=== PATIENT | female | born 1955 | race Caucasian/White ===

== ENCOUNTER 2019-11-13 11:15 | Observation (INO) | payer OTHER, SELFPAY ==
[2019-11-13 11:21] VITALS: BP 126/77; PULSE 75; RESP 18; TEMP 36.6; O2SAT 99; BMI 19.0
--- NOTE | 2019-11-13 11:32 | ED.ABDPAIN ---
HPI - Abdominal Pain <EFRAIN Anderson - Last Filed: 11/13/19 13:58> General Chief Complaint: Abdominal Pain Stated Complaint: Severe stomach pain Time Seen by Provider: 11/13/19 11:16 Source: patient Mode of arrival: Ambulatory Limitations: no limitations History of Present Illness HPI narrative: 64yo male presents to the ED complaining of right lower quadrant stomach pain starting yesterday morning. She states the pain is a dull aching pain that is worse with walking, palpation, and certain movements such as bending her knee to her chest. She states she then developed nausea and vomiting that evening, she vomited 3-4 times. She has not eaten since then. She woke up this morning stating the pain has continued, she has not vomited today. She denies any abdominal surgeries in the past, significant past medical history, chest pain, shortness of breath, diarrhea, dizziness, syncope, dysuria, vaginal discharge, or any other concerns. She states ?I feel like had a fever ?. Patient states she last ate at 0900 yesterday, she reports she had a smoothie. She last had a few sips of water at 0900 today. Related Data Home Medications Medication Instructions Recorded Confirmed clonazepam [Klonopin] 0.25 mg PO DAILY PRN 11/13/19 11/13/19 Allergies Allergy/AdvReac Type Severity Reaction Status Date / Time No Known Drug Allergies Allergy Verified 11/13/19 11:21 Review of Systems <EFRAIN Anderson - Last Filed: 11/13/19 13:58> Review of Systems Narrative: REVIEW OF SYSTEMS: GENERAL: Patient reports she has felt like she has had a fever. HENT: No head trauma. EYES: No vision changes. CARDIOVASCULAR: No chest pain. RESPIRATORY: No shortness of breath or cough. GASTROINTESTINAL: Complains of right lower quadrant abdominal pain, see HPI GENITOURINARY: No flank pain, dysuria, or vaginal discharge. MUSCULOSKELETAL: Denies trauma. INTEGUMENTARY: Denies rash. NEURO: Denies headaches. PSYCH: No behavior or mood changes. Patient History <EFRAIN Anderson - Last Filed: 11/13/19 13:58> Medical History (Updated 11/13/19 @ 14:59 by Ofe Reeves RN) Fibromyalgia (Acute) No significant medical problems (Acute) Social History household members: none Smoking Status: Never smoker alcohol intake: never Smoking Status: Never smoker alcohol intake frequency: a few times a week Alcohol type: wine Substance Use Type: does not use Exam <EFRAIN Anderson - Last Filed: 11/13/19 13:58> Initial Vital Signs Initial Vital Signs: Vital Signs Temperature 98 F 11/13/19 11:21 Pulse Rate 75 11/13/19 11:21 Respiratory Rate 18 11/13/19 11:21 Blood Pressure 126/77 11/13/19 11:21 Pulse Oximetry 99 11/13/19 11:21 PHYSICAL EXAMINATION: GENERAL: Well groomed, alert, and cooperative. Answers questions promptly and appropriately. Vital signs noted. HENT: Normocephalic, atraumatic. Hearing intact. Oral mucosa is pink and moist. EYES: Conjunctiva pink, sclera white, no periorbital swelling. CARDIOVASCULAR: S1 and S2 sounds normal. Regular rate and rhythm, no murmurs, clicks, or bruits. No pedal edema. RESPIRATORY: Normal respiratory rate, trachea midline, airway patent. No stridor, nasal flaring or accessory muscle use. Lungs are clear in all car[place] without wheeze, rhonchi, or crackles. GASTROINTESTINAL: Bowel sounds normoactive. Diffuse tenderness, significant right lower quadrant tenderness, McBurney point tenderness. Positive rebound tenderness. Pain with movement particularly flexion of right leg, sitting forward, and walking around the room.. No significant pain with heel tap. GENITALURINARY: No flank tenderness. MUSCULOSKELETAL: Normal gait and coordination. Equal tone and mass bilaterally. EXTREMITIES: CMS intact, no pedal edema. SKIN: Warm, dry, soft, appropriate color for ethnicity. No lesions, rashes, or wounds to visualized areas. NEURO: Alert and Oriented X 3. Good coordination. No ataxia, or sensory deficits, or cognitive issues. PSYCH: Appropriate affect and mood. <Kayden Kingsley MD - Last Filed: 11/13/19 18:58> Initial Vital Signs Initial Vital Signs: Vital Signs Temperature 98 F 11/13/19 11:21 Pulse Rate 75 11/13/19 11:21 Respiratory Rate 18 11/13/19 11:21 Blood Pressure 126/77 11/13/19 11:21 Pulse Oximetry 99 11/13/19 11:21 Course <EFRAIN Anderson - Last Filed: 11/13/19 13:58> Course Course Narrative: Patient was given IV fluids, zofran, and toradol to managed symptoms. 1235: Patient re-evaluated, reports pain has significantly decreased. States pain is a 4/10, denies need of any further pain medication at this time. Zosyn started in the ED per nursing. Patient informed that she will have a coronavirus test incase surgery is needed. Orders Ordered: ED Orders 11/13/19 11:29 Complete Blood Count AUTO DIFF Stat Comprehensive Metabolic Panel Stat Lactate (Lactic Acid) Stat Lipase Stat Procalcitonin Stat 11/13/19 11:57 CT abdomen pelvis w con Stat Acetaminophen (Tylenol) 650 mg PO Q6HR PRN PRN Reason: Fever/Mild Pain (1-3) Last Admin: 11/13/19 14:14 Dose: 650 mg Documented by: NIKKY Clonazepam (Klonopin) 0.25 mg PO BID PRN PRN Reason: Anxiety Lactated Ringer's (Lactated Ringers) 1,000 mls @ 100 mls/hr IV CONT ELI Last Admin: 11/13/19 14:16 Dose: 100 mls/hr Documented by: NIKKY Piperacillin/Tazobactam/Dextrose (Zosyn) 3.375 gm in 50 mls @ 100 mls/hr IV Q6H ELI Last Infusion: 11/13/19 18:41 Dose: 0 mls/hr Documented by: Admin: 11/13/19 16:31 Dose: 100 mls/hr Documented by: UGO Ketorolac Tromethamine (Toradol) 15 mg IV Q6H PRN PRN Reason: Pain, Severe (7-10) Stop: 11/18/19 16:38 Morphine Sulfate (Morphine) 2 mg IV Q4HR PRN PRN Reason: Pain, Moderate (4-6) Ondansetron HCl (Zofran) 4 mg IV Q4HR PRN PRN Reason: Nausea And Vomiting Oxycodone HCl (Percolone) 5 mg PO Q4HR PRN PRN Reason: Pain, Moderate (4-6) Last Admin: 11/13/19 16:31 Dose: 5 mg Documented by: APARKER Discontinued Medications Sodium Chloride (Normal Saline 0.9%) 1,000 mls @ 1,000 mls/hr IV BOLUS ONE Stop: 11/13/19 12:28 Last Infusion: 11/13/19 13:51 Dose: 0 mls/hr Documented by: Admin: 11/13/19 11:38 Dose: 1,000 mls/hr Documented by: WES Piperacillin/Tazobactam/Dextrose (Zosyn) 3.375 gm in 50 mls @ 100 mls/hr IV NOW ONE Stop: 11/13/19 12:55 Last Infusion: 11/13/19 13:09 Dose: 0 mls/hr Documented by: Admin: 11/13/19 12:34 Dose: 100 mls/hr Documented by: WES Ketorolac Tromethamine (Toradol) 30 mg IV NOW ONE Stop: 11/13/19 11:30 Last Admin: 11/13/19 11:38 Dose: 30 mg Documented by: WES Ondansetron HCl (Zofran) 4 mg IV NOW ONE Stop: 11/13/19 11:30 Last Admin: 11/13/19 11:39 Dose: 4 mg Documented by: WES Reevaluation(s) Reevaluation #1: I spoke with the radiologist at 1218, discussed that patient does have appendicitis. 1220, I spoke with the general surgeon, Dr. Ocasio about patient's CT report. Patient was started on Zosyn as discussed. Coronavirus stat test was ordered for rule out before possible surgical procedure. Dr. Ocasio saw patient in the ED. Vital Signs Vital signs: Vital Signs - 8 hr 11/13/19 11:21 11/13/19 11:52 Temperature 98 F Pulse Rate 75 76 Respiratory Rate 18 16 Blood Pressure 126/77 Blood Pressure [Right Arm] 126/77 Pulse Oximetry 99 99 <Kayden Kingsley MD - Last Filed: 11/13/19 18:58> Orders Ordered: ED Orders 11/13/19 11:29 Complete Blood Count AUTO DIFF Stat Comprehensive Metabolic Panel Stat Lactate (Lactic Acid) Stat Lipase Stat Procalcitonin Stat 11/13/19 11:57 CT abdomen pelvis w con Stat Acetaminophen (Tylenol) 650 mg PO Q6HR PRN PRN Reason: Fever/Mild Pain (1-3) Last Admin: 11/13/19 14:14 Dose: 650 mg Documented by: NIKKY Clonazepam (Klonopin) 0.25 mg PO BID PRN PRN Reason: Anxiety Lactated Ringer's (Lactated Ringers) 1,000 mls @ 100 mls/hr IV CONT ELI Last Admin: 11/13/19 14:16 Dose: 100 mls/hr Documented by: NIKKY Piperacillin/Tazobactam/Dextrose (Zosyn) 3.375 gm in 50 mls @ 100 mls/hr IV Q6H [facility] Last Infusion: 11/13/19 18:41 Dose: 0 mls/hr Documented by: Admin: 11/13/19 16:31 Dose: 100 mls/hr Documented by: UGO Ketorolac Tromethamine (Toradol) 15 mg IV Q6H PRN PRN Reason: Pain, Severe (7-10) Stop: 11/18/19 16:38 Morphine Sulfate (Morphine) 2 mg IV Q4HR PRN PRN Reason: Pain, Moderate (4-6) Ondansetron HCl (Zofran) 4 mg IV Q4HR PRN PRN Reason: Nausea And Vomiting Oxycodone HCl (Percolone) 5 mg PO Q4HR PRN PRN Reason: Pain, Moderate (4-6) Last Admin: 11/13/19 16:31 Dose: 5 mg Documented by: UGO Discontinued Medications Sodium Chloride (Normal Saline 0.9%) 1,000 mls @ 1,000 mls/hr IV BOLUS ONE Stop: 11/13/19 12:28 Last Infusion: 11/13/19 13:51 Dose: 0 mls/hr Documented by: Admin: 11/13/19 11:38 Dose: 1,000 mls/hr Documented by: WES Piperacillin/Tazobactam/Dextrose (Zosyn) 3.375 gm in 50 mls @ 100 mls/hr IV NOW ONE Stop: 11/13/19 12:55 Last Infusion: 11/13/19 13:09 Dose: 0 mls/hr Documented by: Admin: 11/13/19 12:34 Dose: 100 mls/hr Documented by: WES Ketorolac Tromethamine (Toradol) 30 mg IV NOW ONE Stop: 11/13/19 11:30 Last Admin: 11/13/19 11:38 Dose: 30 mg Documented by: WES Ondansetron HCl (Zofran) 4 mg IV NOW ONE Stop: 11/13/19 11:30 Last Admin: 11/13/19 11:39 Dose: 4 mg Documented by: WES Vital Signs Vital signs: Vital Signs - 8 hr 11/13/19 11:21 11/13/19 11:52 Temperature 98 F Pulse Rate 75 76 Respiratory Rate 18 16 Blood Pressure 126/77 Blood Pressure [Right Arm] 126/77 Pulse Oximetry 99 99 MDM - Abdominal Pain <EFRAIN Anderson - Last Filed: 11/13/19 13:58> Medical Records Attestation: I reviewed the patient's medical records. Lab Data Attestation: I reviewed the patient's lab results. Result diagrams: 11/13/19 11:29 11/13/19 11:29 Labs: Lab Results 11/13/19 11/13/19 11/13/19 Range/Units 11:29 11:29 11:29 WBC 4.1 L (4.5-11.0) X10^3/uL RBC 4.65 (4.0-5.2) X10^6/uL Hgb 14.9 (12.0-16.0) g/dL Hct 43.1 (36-46) % MCV 92.8 (80-100) fL MCH 32.1 (26-34) PG MCHC 34.6 (30-36) % RDW 12.8 (11.6-14.8) % Plt Count 197 (150-400) X10^3/uL Neut % (Auto) 76.1 H (50-75) % Lymph % (Auto) 16.3 L (25-40) % [place] % (Auto) 7.4 (3-14) % Eos % (Auto) 0.0 L (2-4) % Baso % (Auto) 0.2 (0-2) % Neut # (Auto) 3100 (6440-8784) /uL Lymph # (Auto) 700 L (0418-6576) /uL [place] # (Auto) 300 (0-900) /uL Eos # (Auto) 0 (0-450) /uL Baso # (Auto) 0 (0-100) /uL Sodium 130 L (137-145) mmol/L Potassium 4.1 (3.4-5.1) mmol/L Chloride 95 L (98-107) mmol/L Carbon Dioxide 25 (22-32) mmol/L BUN 11 (7-17) mg/dL Creatinine 0.60 (0.52-1.04) mg/dL Estimated GFR > 60.0 (>60) mL/min BUN/Creatinine Ratio 18.3 (6-22) Glucose 144 H (80-110) mg/dL Lactate 1.5 (0.7-2.1) mmol/L Calcium 9.1 (8.4-10.2) mg/dL Total Bilirubin 1.0 (0.2-1.3) mg/dL AST 29 (14-36) IU/L ALT 17 (<35) IU/L Alkaline Phosphatase 50 (38-126) U/L Total Protein 7.5 (6.3-8.2) g/dL Albumin 4.5 (3.5-5.0) g/dL Globulin 3.0 (1.7-4.1) g/dL Albumin/Globulin Ratio 1.5 (1.0-2.8) Lipase 26 (23-300) U/L Procalcitonin (<0.5) ng/mL 11/13/19 Range/Units 11:29 WBC (4.5-11.0) X10^3/uL RBC (4.0-5.2) X10^6/uL Hgb (12.0-16.0) g/dL Hct (36-46) % MCV (80-100) fL MCH (26-34) PG MCHC (30-36) % RDW (11.6-14.8) % Plt Count (150-400) X10^3/uL Neut % (Auto) (50-75) % Lymph % (Auto) (25-40) % [place] % (Auto) (3-14) % Eos % (Auto) (2-4) % Baso % (Auto) (0-2) % Neut # (Auto) (9292-9345) /uL Lymph # (Auto) (9027-9341) /uL [place] # (Auto) (0-900) /uL Eos # (Auto) (0-450) /uL Baso # (Auto) (0-100) /uL Sodium (137-145) mmol/L Potassium (3.4-5.1) mmol/L Chloride (98-107) mmol/L Carbon Dioxide (22-32) mmol/L BUN (7-17) mg/dL Creatinine (0.52-1.04) mg/dL Estimated GFR (>60) mL/min BUN/Creatinine Ratio (6-22) Glucose (80-110) mg/dL Lactate (0.7-2.1) mmol/L Calcium (8.4-10.2) mg/dL Total Bilirubin (0.2-1.3) mg/dL AST (14-36) IU/L ALT (<35) IU/L Alkaline Phosphatase (38-126) U/L Total Protein (6.3-8.2) g/dL Albumin (3.5-5.0) g/dL Globulin (1.7-4.1) g/dL Albumin/Globulin Ratio (1.0-2.8) Lipase (23-300) U/L Procalcitonin 0.07 (<0.5) ng/mL Imaging Data CT scan - abdomen/pelvis: Radiologist's Impression: [place] [address] CT Scan Report Signed Patient: Ena Benitez [facility]#: [id number] : 6Acct:[id number] Age/Sex: 64 / FDate of Service: 11/13/19 Loc: ED Accession Number: [id number] Procedure: CT abdomen pelvis w con Ordering Provider: Albania Tate PROCEDURE: CT ABDOMEN PELVIS W CON INDICATIONS: RIGHT FLANK PAIN TECHNIQUE: After the administration of intravenous contrast, 5 mm thick sections acquired from the diaphragm to the symphysis. 5 mm coronal and sagittal reformats were acquired. For radiation dose reduction, the following was used: automated exposure control, adjustment of mA and/or kV according to patient size. COMPARISON: None. FINDINGS: Image quality: Excellent. ABDOMEN: Lung bases: Lung bases are clear. Heart size is normal. Solid organs: Liver is normal in size and enhancement. Gallbladder wall does not appear thickened. Biliary system is non dilated. Pancreas enhances normally. Spleen is normal in size and enhancement. No adrenal nodules. Kidneys demonstrate normal size and enhancement, without hydronephrosis. At the superior pole of the left kidney, there is a water density 1.3 cm simple cyst seen. Peritoneum and bowel: There is an abnormal appendix seen, with a caliber 1.5 cm. This appendix is seen projecting superiorly within a retrocecal location. An appendicolith can be seen on series 5 image 24. Relatively prominent surrounding inflammatory change can be seen. Free fluid can be seen, including frequent within the pelvis. No loculated fluid is seen to suggest abscess, however. No free air is seen to suggest perforation. Mild wall thickening can be seen of the bowel loops within the right lower quadrant. No other areas of bowel thickening can be seen. No dilated loops of small bowel are seen. Nodes and vessels: No retroperitoneal or mesenteric adenopathy by size criteria. Aorta and inferior vena cava are normal in size. Miscellaneous: A mild periumbilical hernia is seen, containing fat. PELVIS: Genitourinary: Bladder wall thickness is normal. Miscellaneous: No inguinal hernias or adenopathy. Bones: No suspicious bony lesions. No vertebral body compression fractures. Mild levoconvex scoliotic curvature is noted. Age-appropriate bony degenerative changes are seen. IMPRESSION: Acute appendicitis. The appendix is seen within the retro-cecal location. Prominent surrounding inflammatory change is seen, with free fluid, including free fluid within the pelvis. No chiquita findings of perforation or abscess can be seen, however. Incidental note is made of: Simple left renal cyst Fat containing periumbilical hernia Mild levoconvex scoliotic curvature Note: Case discussed by telephone with EFRAIN Anderson at 11:18 AM [place] time on November 13, 2019. Dictated by: Eliseo Clemens M.D. on 11/13/2019 at 11:14 Approved by: Eliseo Clemens M.D. on 11/13/2019 at 11:20 MDM Narrative Medical decision making narrative: 64-year-old healthy female presents emergency department for right lower quadrant abdominal pain and vomiting which is concerning for appendicitis versus perforation versus gastroenteritis. CT is positive for appendicitis without complications such as abscess or perforation. Patient's pain was controlled with Toradol, nausea was controlled with Zofran, and IV fluids were given. Patient has a slightly low white blood cell count which is consistent with her past laboratory work on 03/28/2016. However, patient does have elevated neutrophils. Patient does have mild hyponatremia without symptoms. Patient remained NPO in the emergency department. Patient is hemodynamically stable. No signs of sepsis (afebrile, non tachycardic, normal lactate, normal procalcitonin). Patient denies any need additional pain medications. Patient was admitted to Dr. Ocasio. Zosyn was started in the emergency department as per discussion with the surgeon. Results were explained to patient, she agreed with understanding. Dr. Ocasio saw patient in the ED before admission. <Kayden Kingsley MD - Last Filed: 11/13/19 18:58> Lab Data Labs: Lab Results 11/13/19 11/13/19 11/13/19 Range/Units 11:29 11:29 11:29 WBC 4.1 L (4.5-11.0) X10^3/uL RBC 4.65 (4.0-5.2) X10^6/uL Hgb 14.9 (12.0-16.0) g/dL Hct 43.1 (36-46) % MCV 92.8 (80-100) fL MCH 32.1 (26-34) PG MCHC 34.6 (30-36) % RDW 12.8 (11.6-14.8) % Plt Count 197 (150-400) X10^3/uL Neut % (Auto) 76.1 H (50-75) % Lymph % (Auto) 16.3 L (25-40) % [place] % (Auto) 7.4 (3-14) % Eos % (Auto) 0.0 L (2-4) % Baso % (Auto) 0.2 (0-2) % Neut # (Auto) 3100 (3275-2080) /uL Lymph # (Auto) 700 L (7189-9451) /uL [place] # (Auto) 300 (0-900) /uL Eos # (Auto) 0 (0-450) /uL Baso # (Auto) 0 (0-100) /uL Sodium 130 L (137-145) mmol/L Potassium 4.1 (3.4-5.1) mmol/L Chloride 95 L (98-107) mmol/L Carbon Dioxide 25 (22-32) mmol/L BUN 11 (7-17) mg/dL Creatinine 0.60 (0.52-1.04) mg/dL Estimated GFR > 60.0 (>60) mL/min BUN/Creatinine Ratio 18.3 (6-22) Glucose 144 H (80-110) mg/dL Lactate 1.5 (0.7-2.1) mmol/L Calcium 9.1 (8.4-10.2) mg/dL Total Bilirubin 1.0 (0.2-1.3) mg/dL AST 29 (14-36) IU/L ALT 17 (<35) IU/L Alkaline Phosphatase 50 (38-126) U/L Total Protein 7.5 (6.3-8.2) g/dL Albumin 4.5 (3.5-5.0) g/dL Globulin 3.0 (1.7-4.1) g/dL Albumin/Globulin Ratio 1.5 (1.0-2.8) Lipase 26 (23-300) U/L Procalcitonin (<0.5) ng/mL 11/13/19 Range/Units 11:29 WBC (4.5-11.0) X10^3/uL RBC (4.0-5.2) X10^6/uL Hgb (12.0-16.0) g/dL Hct (36-46) % MCV (80-100) fL MCH (26-34) PG MCHC (30-36) % RDW (11.6-14.8) % Plt Count (150-400) X10^3/uL Neut % (Auto) (50-75) % Lymph % (Auto) (25-40) % [place] % (Auto) (3-14) % Eos % (Auto) (2-4) % Baso % (Auto) (0-2) % Neut # (Auto) (4376-8829) /uL Lymph # (Auto) (6321-4036) /uL [place] # (Auto) (0-900) /uL Eos # (Auto) (0-450) /uL Baso # (Auto) (0-100) /uL Sodium (137-145) mmol/L Potassium (3.4-5.1) mmol/L Chloride (98-107) mmol/L Carbon Dioxide (22-32) mmol/L BUN (7-17) mg/dL Creatinine (0.52-1.04) mg/dL Estimated GFR (>60) mL/min BUN/Creatinine Ratio (6-22) Glucose (80-110) mg/dL Lactate (0.7-2.1) mmol/L Calcium (8.4-10.2) mg/dL Total Bilirubin (0.2-1.3) mg/dL AST (14-36) IU/L ALT (<35) IU/L Alkaline Phosphatase (38-126) U/L Total Protein (6.3-8.2) g/dL Albumin (3.5-5.0) g/dL Globulin (1.7-4.1) g/dL Albumin/Globulin Ratio (1.0-2.8) Lipase (23-300) U/L Procalcitonin 0.07 (<0.5) ng/mL Discharge Plan Departure Patient Disposition: Admitted As Inpatient Clinical Impression: Acute appendicitis Qualifiers: Acute appendicitis type: with localized peritonitis Appendicitis gangrene presence: without gangrene Appendicitis perforation presence: without perforation Appendicitis abscess presence: without abscess Qualified Code(s): K35.30 - Acute appendicitis with localized peritonitis, without perforation or gangrene Discharge Date/Time: 11/13/19 13:55 Referrals: Ysabel Gómez ARNP [Primary Care Provider] - Admit Date/Time: 11/13/19 12:51 Admit Provider: Orquidea Ocasio
[2019-11-13 11:36] LABS: Add Manual Diff / Slide Review NO; Basophils Absolute Auto 0 /uL (0-100); Basophils Percent Auto 0.2 % (0-2); Eosinophils Absolute Auto 0 /uL (0-450); Hematocrit 43.1 % (36-46); Hemoglobin 14.9 g/dL (12.0-16.0); Lymphocytes Absolute Auto 700 /uL (1100-4500); Lymphocytes Percent Auto 16.3 % (25-40); Mean Corpuscular HGB Conc 34.6 % (30-36); Mean Corpuscular Hemoglobin 32.1 PG (26-34); Mean Corpuscular Volume 92.8 fL (80-100); Monocytes Absolute Auto 300 /uL (0-900); Monocytes Percent Auto 7.4 % (3-14); Neutrophils Absolute Auto 3100 /uL (1500-7000); Neutrophils Percent Auto 76.1 % (50-75); Platelet Count 197 X10^3/uL (150-400); Red Blood Cell Count 4.65 X10^6/uL (4.0-5.2); Red Cell Distribution Width 12.8 % (11.6-14.8); White Blood Cell Count 4.1 X10^3/uL (4.5-11.0)
[2019-11-13] MEDS: KETOROLAC 60 MG/2 ML VIAL 30 MG IV (11:38)
[2019-11-13] MEDS: SODIUM CHLORIDE 0.9% 1,000 ML 1000 ML IV (11:38)
[2019-11-13] MEDS: ONDANSETRON 4 MG/2 ML INJ IV (11:39)
[2019-11-13 11:50] LABS: Alanine Aminotransferase 17 IU/L (<35); Albumin 4.5 g/dL (3.5-5.0); Albumin Globulin Ratio 1.5 (1.0-2.8); Alkaline Phosphatase 50 U/L (38-126); Aspartate Aminotransferase 29 IU/L (14-36); BUN Creatinine Ratio 18.3 (6-22); Blood Urea Nitrogen 11 mg/dL (7-17); Calcium 9.1 mg/dL (8.4-10.2); Carbon Dioxide 25 mmol/L (22-32); Chloride 95 mmol/L (98-107); Estimated Glomerular Filt Rate > 60.0 mL/min (>60); Glucose 144 mg/dL (80-110); HEMOLYSIS 18 (0-50); Lipase 26 U/L (23-300); Potassium 4.1 mmol/L (3.4-5.1); Sodium 130 mmol/L (137-145); Total Protein 7.5 g/dL (6.3-8.2)
[2019-11-13 11:51] LABS: Lactate (Lactic Acid) 1.5 mmol/L (0.7-2.1)
[2019-11-13 11:52] VITALS: BP 126/77; PULSE 76; RESP 16; O2SAT 99
--- NOTE | 2019-11-13 11:57 | DI.CT.S_ITS ---
PROCEDURE: CT ABDOMEN PELVIS W CON INDICATIONS: RIGHT FLANK PAIN TECHNIQUE: After the administration of intravenous contrast, 5 mm thick sections acquired from the diaphragm to the symphysis. 5 mm coronal and sagittal reformats were acquired. For radiation dose reduction, the following was used: automated exposure control, adjustment of mA and/or kV according to patient size. COMPARISON: None. FINDINGS: Image quality: Excellent. ABDOMEN: Lung bases: Lung bases are clear. Heart size is normal. Solid organs: Liver is normal in size and enhancement. Gallbladder wall does not appear thickened. Biliary system is non dilated. Pancreas enhances normally. Spleen is normal in size and enhancement. No adrenal nodules. Kidneys demonstrate normal size and enhancement, without hydronephrosis. At the superior pole of the left kidney, there is a water density 1.3 cm simple cyst seen. Peritoneum and bowel: There is an abnormal appendix seen, with a caliber 1.5 cm. This appendix is seen projecting superiorly within a retrocecal location. An appendicolith can be seen on series 5 image 24. Relatively prominent surrounding inflammatory change can be seen. Free fluid can be seen, including frequent within the pelvis. No loculated fluid is seen to suggest abscess, however. No free air is seen to suggest perforation. Mild wall thickening can be seen of the bowel loops within the right lower quadrant. No other areas of bowel thickening can be seen. No dilated loops of small bowel are seen. Nodes and vessels: No retroperitoneal or mesenteric adenopathy by size criteria. Aorta and inferior vena cava are normal in size. Miscellaneous: A mild periumbilical hernia is seen, containing fat. PELVIS: Genitourinary: Bladder wall thickness is normal. Miscellaneous: No inguinal hernias or adenopathy. Bones: No suspicious bony lesions. No vertebral body compression fractures. Mild levoconvex scoliotic curvature is noted. Age-appropriate bony degenerative changes are seen. IMPRESSION: Acute appendicitis. The appendix is seen within the retro-cecal location. Prominent surrounding inflammatory change is seen, with free fluid, including free fluid within the pelvis. No chiquita findings of perforation or abscess can be seen, however. Incidental note is made of: Simple left renal cyst Fat containing periumbilical hernia Mild levoconvex scoliotic curvature Note: Case discussed by telephone with EFRAIN Anderson at 11:18 AM [place] time on November 13, 2019. Dictated by: Eliseo Clemens M.D. on 11/13/2019 at 11:14 Approved by: Eliseo Clemens M.D. on 11/13/2019 at 11:20
[2019-11-13 12:08] LABS: Procalcitonin 0.07 ng/mL (<0.5)
[2019-11-13] MEDS: PIPERACILLIN-TAZO 3.375 GM/50 ML FROZ.PIGGY IV ×3 (12:34→22:59)
--- NOTE | 2019-11-13 13:21 | P.HP_ITS ---
History of Present Illness History of Present Illness Date Patient Seen: 11/13/19 Time Patient Seen: 13:21 Date of Onset of Symptoms: 11/12/19 Chief complaint: Severe stomach pain Narrative: This is a 64-year-old woman who was in her usual state of health until sometime yesterday when she started having focal right lower quadrant pain. She has had some associated nausea, and diarrhea. She denies fevers or chills. She denies any recent sick contacts, or viral contacts. She denies cough, shortness of breath. She denies burning with urination. She had a CT scan in the ER which shows an enlarged appendix with a fecalith at the base of the appendix. No evidence of perforation, abscess or phlegmon. She denies other significant medical problems. She says she only takes clonazepam, at a small dose and only occasionally for anxiety. She denies any other medical problems and feels she is relatively healthy otherwise. She has never had a colonoscopy. She denies any family history of colon cancers or colon diseases. ROS: Thirteen system review is otherwise negative other than as mentioned below and in HPI. PE: GENERAL: Alert, relatively comfortable. Appears stated age. Answers questions promptly and appropriately. Vital signs noted. HENT: Normocephalic, atraumatic. Hearing intact. Oral mucosa is pink and moist. EYES: Conjunctiva pink, sclera white, no periorbital swelling. CARDIOVASCULAR: Regular rate. No pedal edema. RESPIRATORY: Non-tachypneic, breathing comfortably on room air. GASTROINTESTINAL: Abdomen soft and non-distended; focally tender in the right lower quadrant, with some vague tenderness on the left side GENITALURINARY: No flank tenderness bilaterally. MUSCULOSKELETAL: Equal tone and mass bilaterally. SKIN: Warm, dry, soft, appropriate color for ethnicity. No other lesions, rashes, or wounds. NEURO: Alert and Oriented X 3. No gross sensory deficits, or cognitive issues. PSYCH: Appropriate affect and mood. Patient History Medical History No significant medical problems (Acute) Family & Social History Safety & Behavioral: Feels Safe in Current Yes Environment Tobacco & Substance use: Smoking Status Never smoker alcohol intake frequency a few times a week Substance Use Type does not use Meds Home Medications and Allergies Allergies Allergy/AdvReac Type Severity Reaction Status Date / Time No Known Drug Allergies Allergy Verified 11/13/19 11:21 Exam Vital Signs (past 8 hours): - 11/13/19 11:21 11/13/19 11:52 Temperature 98 F Pulse Rate 75 76 Respiratory Rate 18 16 Blood Pressure 126/77 Blood Pressure [Right Arm] 126/77 Pulse Oximetry 99 99 Oxygen Delivery Method Room Air Objective Imaging CT scan - abdomen: My impression: Dilated fluid-filled appendix, appendicoliths at the base of the appendix, trace free fluid in the pelvis Radiologist's impression: [place] [address] CT Scan Report Signed Patient: Ena Benitez [facility]#: [id number] : [id number] Age/Sex: 64 / FDate of Service: 11/13/19 Loc: ED Accession Number: [id number] Procedure: CT abdomen pelvis w con Ordering Provider: [place]ia Tate PROCEDURE: CT ABDOMEN PELVIS W CON INDICATIONS: RIGHT FLANK PAIN TECHNIQUE: After the administration of intravenous contrast, 5 mm thick sections acquired from the diaphragm to the symphysis. 5 mm coronal and sagittal reformats were acquired. For radiation dose reduction, the following was used: automated exposure control, adjustment of mA and/or kV according to patient size. COMPARISON: None. FINDINGS: Image quality: Excellent. ABDOMEN: Lung bases: Lung bases are clear. Heart size is normal. Solid organs: Liver is normal in size and enhancement. Gallbladder wall does not appear thickened. Biliary system is non dilated. Pancreas enhances normally. Spleen is normal in size and enhancement. No adrenal nodules. Kidneys demonstrate normal size and enhancement, without hydronephrosis. At the superior pole of the left kidney, there is a water density 1.3 cm simple cyst seen. Peritoneum and bowel: There is an abnormal appendix seen, with a caliber 1.5 cm. This appendix is seen projecting superiorly within a retrocecal location. An appendicolith can be seen on series 5 image 24. Relatively prominent surrounding inflammatory change can be seen. Free fluid can be seen, including frequent within the pelvis. No loculated fluid is seen to suggest abscess, however. No free air is seen to suggest perforation. Mild wall thickening can be seen of the bowel loops within the right lower quadrant. No other areas of bowel thickening can be seen. No dilated loops of small bowel are seen. Nodes and vessels: No retroperitoneal or mesenteric adenopathy by size criteria. Aorta and inferior vena cava are normal in size. Miscellaneous: A mild periumbilical hernia is seen, containing fat. PELVIS: Genitourinary: Bladder wall thickness is normal. Miscellaneous: No inguinal hernias or adenopathy. Bones: No suspicious bony lesions. No vertebral body compression fractures. Mild levoconvex scoliotic curvature is noted. Age-appropriate bony degenerative changes are seen. IMPRESSION: Acute appendicitis. The appendix is seen within the retro-cecal location. Prominent surrounding inflammatory change is seen, with free fluid, including free fluid within the pelvis. No chiquita findings of perforation or abscess can be seen, however. Incidental note is made of: Simple left renal cyst Fat containing periumbilical hernia Mild levoconvex scoliotic curvature Note: Case discussed by telephone with EFRAIN Anderson at 11:18 AM [place] time on November 13, 2019. Dictated by: Eliseo Clemens M.D. on 11/13/2019 at 11:14 Approved by: Eliseo Clemens M.D. on 11/13/2019 at 11:20 Labs Result Diagrams: 11/13/19 11:29 11/13/19 11:29 Labs: Laboratory Results - last 24 hr 11/13/19 11/13/19 11/13/19 11:29 11:29 11:29 WBC 4.1 L RBC 4.65 Hgb 14.9 Hct 43.1 MCV 92.8 MCH 32.1 MCHC 34.6 RDW 12.8 Plt Count 197 Neut % (Auto) 76.1 H Lymph % (Auto) 16.3 L [place] % (Auto) 7.4 Eos % (Auto) 0.0 L Baso % (Auto) 0.2 Neut # (Auto) 3100 Lymph # (Auto) 700 L [place] # (Auto) 300 Eos # (Auto) 0 Baso # (Auto) 0 Sodium 130 L Potassium 4.1 Chloride 95 L Carbon Dioxide 25 BUN 11 Creatinine 0.60 Estimated GFR > 60.0 BUN/Creatinine Ratio 18.3 Glucose 144 H Lactate 1.5 Calcium 9.1 Total Bilirubin 1.0 AST 29 ALT 17 Alkaline Phosphatase 50 Total Protein 7.5 Albumin 4.5 Globulin 3.0 Albumin/Globulin Ratio 1.5 Lipase 26 Procalcitonin 11/13/19 11:29 WBC RBC Hgb Hct MCV MCH MCHC RDW Plt Count Neut % (Auto) Lymph % (Auto) [place] % (Auto) Eos % (Auto) Baso % (Auto) Neut # (Auto) Lymph # (Auto) [place] # (Auto) Eos # (Auto) Baso # (Auto) Sodium Potassium Chloride Carbon Dioxide BUN Creatinine Estimated GFR BUN/Creatinine Ratio Glucose Lactate Calcium Total Bilirubin AST ALT Alkaline Phosphatase Total Protein Albumin Globulin Albumin/Globulin Ratio Lipase Procalcitonin 0.07 Assessment & Plan Assessment and plan (1) Acute appendicitis: Current visit: Yes Status: Acute Assessment & Plan narrative: This is a 64-year-old woman with acute appendicitis, with an associated appendicolith. We had a long discussion about the potential methods of treating appendicitis, and the risks and benefits of each. We discussed antibiotic treatment without surgery, and I did explain that with an appendicolith present there is statistically 100% chance of recurrent appendicitis in the next 2 years. The patient initially wanted to go home on oral antibiotics, and I recommended that this was not a safe thing to do and I would have to have her sign out against medical advice if she did that. My suggestion to her is that we start IV antibiotics, rapidly get her coronavirus tested, and then plan on surgery as soon as the test result comes back. She is not sick enough to force the operating department to allow us to go ahead with surgery in spite of not having coronavirus testing resulted. However, as we are getting test back in 12-24 hours we should be able to do her surgery sometime tomorrow morning. In the meantime we will keep her on IV antibiotics, clear liquids p.o. as tolerated, IV fluids, antiemetics, and p.o. and IV pain meds as needed. She is in agreement with this plan. Plan: P.o. clear liquid IV antibiotic, Zosyn has been started Stat testing for COVID-19 Proceed to OR for laparoscopic, possible open appendectomy once her viral test result returns Home clonazepam as needed As needed antiemetic, and pain medication Ambulate as tolerated SCDs, incentive spirometer We will hold chemical DVT prophylaxis in case we need to urgently go to the operating room for acutely worsening condition Quality VTE Deep Vein Thrombosis/Pulmonary Embolism Present on Admission: No
[2019-11-13 13:52] VITALS: BP 118/61; PULSE 96; RESP 19; O2SAT 100
[2019-11-13 14:00] VITALS: BP 120/70; PULSE 89; RESP 14; TEMP 37.4; O2SAT 98
[2019-11-13] MEDS: ACETAMINOPHEN 325 MG TABLET 650 MG PO (14:14)
[2019-11-13] MEDS: LACTATED RINGERS 1,000 ML 100 ML IV (14:16)
[2019-11-13 14:30] VITALS: BMI 19.0
--- NOTE | 2019-11-13 15:48 | PC.NURSE ---
Day Shift- Report rec'd from CHELLY Can in ED at 1341. Pt arrived to unit room 217 at 1400. Pt placed in COVID-19 rule out Isolation precautions, swab done in ED. Pt aware of clear liquid diet and NPO after midnight. Pt A&OX4, oriented to welcome packet, call light and bed function controls. Rates 6/10 aching to RLQ abd intermittent sharp radiating across abd. Pain management plan discussed, pt wanted to avoid narcotics. PRN Tylenol given at 1414 with water. Explained the need for narcotic pain medication as needed to avoid a pain crisis, willing to take if needed, but not at this time. Pt has no facial grimacing or guarding. IVF started to left AC PIV. 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 Pt states at home she take an array of vitamins and minerals but has not taken in a few days leading up to this admission. Pt also takes an as needed, approx once a month 0.25mg Clonazepam. No other voiced concerns at this time. Call light within reach.
[2019-11-13 16:15] VITALS: BP 115/63; PULSE 96; RESP 18; TEMP 37.5; O2SAT 97
[2019-11-13] MEDS: OXYCODONE IR 5 MG TABLET PO (16:31)
[2019-11-13 20:55] VITALS: BP 115/64; PULSE 103; RESP 17; TEMP 36.9; O2SAT 97
[2019-11-13 21:14] LABS: Bacteria Urine None Seen; WBC Urine None Seen (0-5/HPF)
[2019-11-13 21:16] LABS: Bilirubin Urine UA NEGATIVE (NEGATIVE); Color Urine UA YELLOW; Glucose Urine UA NEGATIVE (Negative); Ketones Urine UA 1+ (NEGATIVE); Leukocyte Esterase Urine UA NEGATIVE (NEGATIVE); Nitrite Urine UA NEGATIVE (Negative); Occult Blood Urine UA 2+ (Negative); Protein Urine UA 2+ (Negative); Urobilinogen Urine UA 0.2 E.U./dL (0.2)
[2019-11-13 21:31] LABS: Appearance Urine UA Clear
[2019-11-13 21:40] LABS: Culture Indicated Urine Cult Not Indicated; RBC Urine 1-5/HPF (0-5/HPF)
[2019-11-14] VITALS (16 sets, daily range): BP systolic 93–138; BP diastolic 48–76; PULSE 86–108; RESP 13–18; TEMP 36.2–37.7; O2SAT 91–97
--- NOTE | 2019-11-14 | PATH_ITS ---
[facility] Accession Number: [id number] . 01 Material submitted: . appendix - APPENDIX . 01 Clinical history: . SEVERE STOMACH PAIN . 02 Diagnosis: Appendix, Appendectomy: Acute suppurative appendicitis with serositis. No evidence of neoplasia. [facility] 11/18/2019 1225 Local . 02 Electronically signed: . Margot Kendrick MD, Pathologist NPI- [id number] . 01 Gross description: . Received in formalin, labeled appendix, is an intact appendix (length-8.5 cm, diameter-1.0 cm) with renteria-yao, focally eroded and exudate covered serosa. The resection margin is received opened. The lumen contains red-brown watery fluid. The wall is up to 0.2 cm thick. No nodules, masses or lesions are identified. The resection margin is inked blue. Section code: (A1) resection margin en face and veterans service representative serial sections; (A2) one-half of the bivalved tip. ([id number]) /MRV 11/17/2019 1055 Local . 02 Pathologist provided ICD-10: K35.80 . 02 CPT . 220288 Performed at: 01 [facility] [address], [place], [place] [id number] MD Nicola Steen MD Phone: [phone] Performed at: 02 [facility] [address] [place], [place] [id number] MD Margot Kendrick MD Phone: [phone]
[2019-11-14] MEDS: OXYCODONE IR 5 MG TABLET PO (00:09)
[2019-11-14] MEDS: LACTATED RINGERS 1,000 ML 100 ML IV ×3 (02:45→19:07)
[2019-11-14 03:19] LABS: COVID19 Sendout Not Detected
[2019-11-14] MEDS: PIPERACILLIN-TAZO 3.375 GM/50 ML FROZ.PIGGY IV ×4 (04:50→22:37)
[2019-11-14] MEDS: MORPHINE 2 MG/ML INJ IV (04:53)
[2019-11-14 05:41] LABS: Hematocrit 39.1 % (36-46); Hemoglobin 13.1 g/dL (12.0-16.0); Mean Corpuscular HGB Conc 33.4 % (30-36); Mean Corpuscular Hemoglobin 31.1 PG (26-34); Mean Corpuscular Volume 92.9 fL (80-100); Platelet Count 145 X10^3/uL (150-400); Red Cell Distribution Width 12.5 % (11.6-14.8)
[2019-11-14 05:43] LABS: Add Manual Diff / Slide Review YES
[2019-11-14 05:48] LABS: BUN Creatinine Ratio 14.9 (6-22); Blood Urea Nitrogen 11 mg/dL (7-17); Calcium 8.2 mg/dL (8.4-10.2); Carbon Dioxide 27 mmol/L (22-32); Chloride 95 mmol/L (98-107); Estimated Glomerular Filt Rate > 60.0 mL/min (>60); Glucose 95 mg/dL (80-110); HEMOLYSIS < 15 (0-50); Magnesium 1.9 mg/dL (1.6-2.3); Potassium 4.3 mmol/L (3.4-5.1); Sodium 128 mmol/L (137-145)
--- NOTE | 2019-11-14 06:53 | PC.NURSE ---
Patient has some R quadrant pain /, medicated w/ 2mg IV morphine Q4. Patient has elevated temp of 100 degrees F. Patient Covid test came back negative and patient was taken off of precautions. Patient was NPO at midnight.
[2019-11-14 07:07] LABS: Neutrophils Absolute Manual 4380 /uL (3000-5900); Total Cells Counted 100
[2019-11-14 07:08] LABS: RBC Morphology Normal Morphology
[2019-11-14] MEDS: KETOROLAC 15 MG/ML VIAL IV (08:22)
[2019-11-14] MEDS: LACTATED RINGERS 1,000 ML 42 ML IV (09:30)
--- NOTE | 2019-11-14 11:05 | SUR.OPER ---
Supine on padded OR bed, head on pillow, safety belt at thigh, left arm padded and tucked at side. Right arm secured on padded arm oard <90 degrees abduction. Legs uncrossed. Padded footboard in place. Tape over blanket to secure lower legs.
[2019-11-14] MEDS: BUPIVACAINE 0.25% W/ EPI 30 ML VIAL INJ (11:31)
--- NOTE | 2019-11-14 12:12 | PM.OP.1 ---
Operative Date/Time/Diagnoses Date of procedure: 11/14/19 Time of procedure: 12:12 Post-op diagnosis: same Procedure & Clinicians Procedure: Laparoscopic appendectomy Same procedure as scheduled: Yes Indications: Acute appendicitis Surgeon: Orquidea Ocasio Anesthesia Type: General Operative Notes Findings: Acute appendicitis with focal perforation of mid appendix Specimen(s): other (appendix) Estimated Blood Loss (mL): 10 Procedure in detail: The patient was brought into the operating room and placed supine on the OR table. Sequential compression devices were placed on both legs and turned on. Appropriate perioperative antibiotics were given prior to the start of surgery. General anesthesia was induced and the patient was intubated. Gill catheter was placed sterilely in the bladder. The abdomen was prepped and draped in sterile fashion. Surgical time-out was conducted. Local anesthetic was injected under the skin just superior to the umbilicus and a 5 mm vertical incision was made at this site. The umbilical stalk was grasped with a Archie and elevated. A Veress needle was passed through the fascia into proper position. The position was tested with a saline drop test which was appropriate for intra-abdominal Veress needle placement. The abdomen was then insufflated in the usual fashion. Once insufflated to 15 mm Hg the Veress needle was removed and a 5 mm optical trocar was placed under direct vision using a 5 mm 30 degree scope. Once the camera was inside the abdomen I took a look around. There was no injury from port placement. Two additional ports were placed in a similar fashion in the suprapubic position and left lower quadrant. The umbilical port was upsized to a 12 mm port. In the right lower quadrant there were omental adhesions up to the abdominal wall. These adhesions were taken down with blunt dissection and using ligature for hemostasis. The patient was placed in Trendelenburg position with right side up. The omentum and small bowel was swept the left and the cecum was exposed. There was a dense phlegmon at the base of the appendix, and murky fluid was found pouring from a perforation in the mid appendix as it traversed the posterior right colon. The cecum, base of appendix, and abdominal wall were all socked in with inflammatory rind. I then followed the cecum superiorly towards the liver, and the appendix traversed retrocecally for about 10 or 15 cm. It was thickened and there were fecaliths seen within the perforation. Starting at the distal tip of the appendix I dissected it free from the abdominal wall and the colon using blunt and sharp dissection with [place] Ligasure. Once I came back to the base of the appendix I carefully dissected it out, protecting the small bowel and the cecum. At no time were we near the ureter. After prolonged dissection the base of the appendix came fully into view where it came into the cecum. There was a two cm length of appendix between its junction onto the cecum and the perforation which was mid-proximal on the appendix. I used the suction social sciences department chair to wash out the entire area of all visible pus, blood, and murky stool tinged fluid, until then there was no remaining fluid or debris. Two 0 PDS endoloops were then brought into the field and secured at the base of the appendix as it entered the cecum. The [place] ligasure was used to divide the remaining appendix. There was a small area of bleeding along the mesoappendix, which was controlled with Ligasure and surgicell. The surgicell was then removed and passed off the field. There was good hemostasis, and all free fluid and blood were suctioned out. Because of the perforation and bleeding, I placed a 19 round len drain through a 5mm stab incision in the right lower quadrant. I positioned the drain to pass by the stump of the appendix and down into the pelvis to drain any bleeding or pus that may accumulate. At the end of the procedure, there was no active bleeding or welling up of pus or fluid. I brought the omentum over the base of the appendix. The appendix was removed through the 12mm port. The 12mm port was closed with Richard Bridgett using 0 Vicryl. At this point the insufflation was removed from the abdomen and the port sites were closed with, 3-O Vicryl in the subcutaneous layers, and 4 Monocryl in the skin. Each port site was sealed with Dermabond. Local anesthetic was given at each of the port sites and in the fascia. This concluded the procedure. At this point the needle sponge and instrument counts were correct. The appendix was passed off the table for pathology. The patient was awakened from anesthesia and extubated. The patient was transferred to the postanesthesia care unit in stable condition. Complications: none Post-operative Condition: stable Disposition: PACU
--- NOTE | 2019-11-14 12:26 | CM.DANOTE ---
Patient is a 64 year old female who was admitted on 11/13/19 for Severe Stomach pain. Pt has [employer] for insurance and her PCP is Dr. Ysabel Gómez. EMR was reviewed. Per Surgeon, pt with acute appendicitis and recommending surgical intervention once COVID 19 test results return, pt currently on IV-Abx. Per RN, COVID 19 results are negative and pt off floor this morning to surgery as she was switched to NPO at midnight. Plan: SW to follow after pt returns from surgery to determine if she will be safe for return home when stable and any further identified discharge planning needs. CONNIE Saenz Discharge Planning/Care Management Advanced directive, confirm from FAMILY Start: 11/13/19 15:46 Freq: Q24H Status: Active Protocol: Document 11/13/19 16:53 AKP (Rec: 11/13/19 17:07 AKP [id number]) Advance Directive, confirm on record Time 17:05 Person contacted patient Copy received No CM Discharge Assessment Start: 11/14/19 12:24 Freq: Status: Active Protocol: Document 11/14/19 12:24 BF (Rec: 11/14/19 12:25 BF [id number]) Discharge Planning Assessment Assigned Consulting Sme CONNIE Milian Advance Directives? Yes Advance Directives on File No History Provided By Patient,Medical Record Has Patient been admitted in last 30 No days? Prior Living Arrangements House Household Members none Type of transporation used prior to Drives own vehicle admit Independent with ADL's Yes Is patient alert and oriented? Yes Caregiver for Another No Comment Likely home pending surgery today Barriers to Discharge No Discharge Plan Home Referrals Initiated None needed Additional Comment Waiting to determine how pt progresses after surgery today Review Status In Process Please Provide Date Initial DC 11/14/19 Assessment Was Performed Next Review Type Continued Stay Review
--- NOTE | 2019-11-14 12:35 | SUR.PHASEI ---
Rings x2 and glasses returned to patient.
--- NOTE | 2019-11-14 12:44 | SUR.PHASEI ---
Report called to Sangeeta Lepe
--- NOTE | 2019-11-14 13:09 | SUR.PHASEI ---
Patient transferred to the floor. VS stable. IV saline locked. Surgical sites open to air x3, no drainage. Drain patent with sero-sanguinous fluid. Report given to Sangeeta Rubio.
[2019-11-14] MEDS: DOCUSATE 100 MG CAPSULE 200 MG PO (22:36)
[2019-11-14] MEDS: HEPARIN 5,000 UNIT/ML VIAL 5000 UNIT SUBCUT (22:36)
[2019-11-14] MEDS: ACETAMINOPHEN 325 MG TABLET 650 MG PO (22:37)
[2019-11-15 00:25] VITALS: BP 111/83; PULSE 83; RESP 16; TEMP 36.6; O2SAT 95
[2019-11-15] MEDS: PIPERACILLIN-TAZO 3.375 GM/50 ML FROZ.PIGGY IV (05:01)
[2019-11-15] MEDS: LACTATED RINGERS 1,000 ML 100 ML IV (05:01)
[2019-11-15] MEDS: ACETAMINOPHEN 325 MG TABLET 650 MG PO ×2 (05:08→10:58)
[2019-11-15 05:15] VITALS: BP 108/60; PULSE 80; RESP 16; TEMP 36.5; O2SAT 95
[2019-11-15 05:33] LABS: Hemoglobin 12.2 g/dL (12.0-16.0); Mean Corpuscular HGB Conc 33.9 % (30-36); Mean Corpuscular Hemoglobin 31.4 PG (26-34); Mean Corpuscular Volume 92.6 fL (80-100); Platelet Count 145 X10^3/uL (150-400); Red Blood Cell Count 3.89 X10^6/uL (4.0-5.2); Red Cell Distribution Width 12.5 % (11.6-14.8); White Blood Cell Count 9.2 X10^3/uL (4.5-11.0)
[2019-11-15 05:34] LABS: Add Manual Diff / Slide Review YES
[2019-11-15 05:42] LABS: BUN Creatinine Ratio 15.6 (6-22); Blood Urea Nitrogen 10 mg/dL (7-17); Calcium 8.5 mg/dL (8.4-10.2); Carbon Dioxide 30 mmol/L (22-32); Chloride 96 mmol/L (98-107); Estimated Glomerular Filt Rate > 60.0 mL/min (>60); Glucose 136 mg/dL (80-110); HEMOLYSIS < 15 (0-50); Magnesium 2.1 mg/dL (1.6-2.3); Sodium 131 mmol/L (137-145)
[2019-11-15 06:24] LABS: Neutrophils Absolute Manual 7544 /uL (3000-5900); Total Cells Counted 100
[2019-11-15 06:25] LABS: RBC Morphology Normal Morphology
--- NOTE | 2019-11-15 06:48 | PM.DS.1 ---
History of Present Illness History of Present Illness Chief complaint: Severe stomach pain Narrative: This is a 64-year-old woman who was in her usual state of health until sometime yesterday when she started having focal right lower quadrant pain. She has had some associated nausea, and diarrhea. She denies fevers or chills. She denies any recent sick contacts, or viral contacts. She denies cough, shortness of breath. She denies burning with urination. She had a CT scan in the ER which shows an enlarged appendix with a fecalith at the base of the appendix. No evidence of perforation, abscess or phlegmon. She denies other significant medical problems. She says she only takes clonazepam, at a small dose and only occasionally for anxiety. She denies any other medical problems and feels she is relatively healthy otherwise. She has never had a colonoscopy. She denies any family history of colon cancers or colon diseases. ROS: Thirteen system review is otherwise negative other than as mentioned below and in HPI. PE: GENERAL: Alert, relatively comfortable. Appears stated age. Answers questions promptly and appropriately. Vital signs noted. HENT: Normocephalic, atraumatic. Hearing intact. Oral mucosa is pink and moist. EYES: Conjunctiva pink, sclera white, no periorbital swelling. CARDIOVASCULAR: Regular rate. No pedal edema. RESPIRATORY: Non-tachypneic, breathing comfortably on room air. GASTROINTESTINAL: Abdomen soft and non-distended; focally tender in the right lower quadrant, with some vague tenderness on the left side GENITALURINARY: No flank tenderness bilaterally. MUSCULOSKELETAL: Equal tone and mass bilaterally. SKIN: Warm, dry, soft, appropriate color for ethnicity. No other lesions, rashes, or wounds. NEURO: Alert and Oriented X 3. No gross sensory deficits, or cognitive issues. PSYCH: Appropriate affect and mood. Discharge Providers Provider Date of admission: 11/13/19 12:51 Discharge Date: 11/15/19 Primary care physician: EFRAIN Hurst Discharge provider: Orquidea Ocasio MD Summary Hospital Course Discharge Diagnosis: Acute appendicitis with perforation Hospital Course: Pt admitted, started on IV antibiotics, and COVID-19 testing completed. Pt taken urgently to the OR for appendectomy. She tolerated the procedure well, and remained stable post op, with good PO tolerance and pain controlled with PO pain med. Status at Discharge Cognitive/behavioral status at discharge: at baseline, oriented Functional status at discharge: independent ambulation Overall status at discharge: patient is progressing back to baseline Time Spent with Patient Time spent: Greater than 30 minutes Exam Vital Signs (past 8 hours): - 11/15/19 00:25 11/15/19 05:15 Temperature 97.9 F 97.7 F Pulse Rate 83 80 Respiratory Rate 16 16 Blood Pressure 111/83 108/60 Pulse Oximetry 95 95 Oxygen Delivery Method Room Air Oxygen Flow Rate 0 Narrative Exam Narrative: GENERAL: Alert and comfortable. Appears stated age. Answers questions promptly and appropriately. Vital signs noted. HENT: Normocephalic, atraumatic. Hearing intact. Oral mucosa is pink and moist. EYES: Conjunctiva pink, sclera white, no periorbital swelling. CARDIOVASCULAR: Regular rate. No pedal edema. RESPIRATORY: Non-tachypneic, breathing comfortably on room air. GASTROINTESTINAL: Abdomen soft and non-distended, appropriately tender to palpation, WILMAR drain with serosanguineous output, incisions clean/dry/and intact GENITALURINARY: No flank tenderness. MUSCULOSKELETAL: Equal tone and mass bilaterally. SKIN: Warm, dry, soft, appropriate color for ethnicity. No other lesions, rashes, or wounds. NEURO: Alert and Oriented X 3. No gross sensory deficits, or cognitive issues. PSYCH: Appropriate affect and mood. Objective Imaging CT scan - abdomen: Radiologist's impression: [place] [address] CT Scan Report Signed Patient: Ena Benitez [facility]#: [id number] : 6Acct:[id number] Age/Sex: 64 / FDate of Service: 11/13/19 Loc: ED Accession Number: [id number] Procedure: CT abdomen pelvis w con Ordering Provider: [place]ia Tate PROCEDURE: CT ABDOMEN PELVIS W CON INDICATIONS: RIGHT FLANK PAIN TECHNIQUE: After the administration of intravenous contrast, 5 mm thick sections acquired from the diaphragm to the symphysis. 5 mm coronal and sagittal reformats were acquired. For radiation dose reduction, the following was used: automated exposure control, adjustment of mA and/or kV according to patient size. COMPARISON: None. FINDINGS: Image quality: Excellent. ABDOMEN: Lung bases: Lung bases are clear. Heart size is normal. Solid organs: Liver is normal in size and enhancement. Gallbladder wall does not appear thickened. Biliary system is non dilated. Pancreas enhances normally. Spleen is normal in size and enhancement. No adrenal nodules. Kidneys demonstrate normal size and enhancement, without hydronephrosis. At the superior pole of the left kidney, there is a water density 1.3 cm simple cyst seen. Peritoneum and bowel: There is an abnormal appendix seen, with a caliber 1.5 cm. This appendix is seen projecting superiorly within a retrocecal location. An appendicolith can be seen on series 5 image 24. Relatively prominent surrounding inflammatory change can be seen. Free fluid can be seen, including frequent within the pelvis. No loculated fluid is seen to suggest abscess, however. No free air is seen to suggest perforation. Mild wall thickening can be seen of the bowel loops within the right lower quadrant. No other areas of bowel thickening can be seen. No dilated loops of small bowel are seen. Nodes and vessels: No retroperitoneal or mesenteric adenopathy by size criteria. Aorta and inferior vena cava are normal in size. Miscellaneous: A mild periumbilical hernia is seen, containing fat. PELVIS: Genitourinary: Bladder wall thickness is normal. Miscellaneous: No inguinal hernias or adenopathy. Bones: No suspicious bony lesions. No vertebral body compression fractures. Mild levoconvex scoliotic curvature is noted. Age-appropriate bony degenerative changes are seen. IMPRESSION: Acute appendicitis. The appendix is seen within the retro-cecal location. Prominent surrounding inflammatory change is seen, with free fluid, including free fluid within the pelvis. No chiquita findings of perforation or abscess can be seen, however. Incidental note is made of: Simple left renal cyst Fat containing periumbilical hernia Mild levoconvex scoliotic curvature Note: Case discussed by telephone with EFRAIN Anderson at 11:18 AM [place] time on November 13, 2019. Dictated by: Eliseo Clemens M.D. on 11/13/2019 at 11:14 Approved by: Eliseo Clemens M.D. on 11/13/2019 at 11:20 Labs Result Diagrams: 11/15/19 05:15 11/15/19 05:15 Labs: Laboratory Results - last 24 hr 11/14/19 11/15/19 11/15/19 05:15 05:15 05:15 WBC 9.2 D RBC 3.89 L Hgb 12.2 Hct 36.0 MCV 92.6 MCH 31.4 MCHC 33.9 RDW 12.5 Plt Count 145 L Neut % (Auto) Not Reportable Lymph % (Auto) Not Reportable [place] % (Auto) Not Reportable Eos % (Auto) Not Reportable Baso % (Auto) Not Reportable Lymph # (Auto) Not Reportable [place] # (Auto) Not Reportable Baso # (Auto) Not Reportable Total Counted 100 100 Seg Neutrophils % 17.0 L 46.0 D Band Neutrophils % 56.0 H 36.0 H Lymphocytes % (Manual) 20.0 L 14.0 L Monocytes % (Manual) 2.0 Basophils % (Manual) 1.0 Metamyelocytes % 3.0 H Myelocytes % 2.0 H 3.0 H Neutrophils # (Manual) 4380 7544 H RBC Morphology Normal morphology Normal morphology Sodium 131 L Potassium 4.0 Chloride 96 L Carbon Dioxide 30 BUN 10 Creatinine 0.64 Estimated GFR > 60.0 BUN/Creatinine Ratio 15.6 Glucose 136 H Calcium 8.5 Magnesium 2.1 Discharge Plan Discharge Plan Patient Disposition: Home Discharge comment: You will be prescribed a narcotic pain medication. You may also use ibuprofen or Aleve as well as Tylenol/ Acetaminophen for pain after surgery. Make sure you do not take more than 3000 mg of Acetaminophen per day for many source. There may be Acetaminophen in cold medications or headache remedies. Using an NSAID such as ibuprofen or Aleve will help with inflammation. Do not take more than recommended. You may take it along with or instead of your prescribed pain medication. Make sure to take the stool softener to prevent constipation from the narcotic pain medication. If you are not able have a bowel movement 24 hours after surgery, or you feel constipated please take an additional laxative such as MiraLax or Senna. Avoid any straining on the toilet. Avoid lifting, pulling, or pushing more than 10 lbs or doing other activities that strain the abdomen or increase the abdominal pressure such as sit-ups, core work outs, and attempt to prevent frequent coughing. The nurses will give you instruction regarding management of your drain. Empty and record the amount of output each day. Call the [facility] office and ask for the doctor contract associate manager if your drain output increases dramatically, or changes significantly in color (becoming red, green or brown), or if other concerning symptoms arise. Discharge orders & Medications Prescriptions: New docusate sodium 100 mg tablet 100 mg PO BID Qty: 20 RF: 0 oxycodone 5 mg tablet 5 mg PO Q4H PRN (Reason: post operative pain meds) Qty: 20 RF: 0 Continued clonazepam [Klonopin] 0.5 mg Tablet 0.25 mg PO DAILY PRN (Reason: Anxiety) RF: 0 Follow up/Referrals: Ysabel Gómez ARNP [Primary Care Provider] - Orquidea Ocasio MD [Physician] - (Please call the [facility] / [facility] office on Saturday to make a follow up appointment for ) Diet/Activity/Treatments Diet: Diet as Tolerated Skin/Wound/Dressing Care Report to your healthcare provider any signs of infection, such as:: chills, fever, night sweats, increased pain, unusual drainage and unusual redness Visit Report/Discharge Packet Instructions: DI for an Appendectomy, DI for Laparoscopy, DI for Cong-Fields Drains, DI for Prescription Opioid Use, Stool Softeners, Oxycodone, [place] [facility]: Wound Care Discharge Data Primary Care Provider: Ysabel Gómez Attending Provider: Orquidea Ocasio Admit Date/Time: 11/13/19 12:51 Quality VTE Deep Vein Thrombosis/Pulmonary Embolism Present on Admission: No
[2019-11-15 08:00] VITALS: BP 128/85; PULSE 77; RESP 16; TEMP 36.9; O2SAT 97
[2019-11-15] MEDS: HEPARIN 5,000 UNIT/ML VIAL 5000 UNIT SUBCUT (08:34)
[2019-11-15] MEDS: DOCUSATE 100 MG CAPSULE 200 MG PO (08:34)
--- NOTE | 2019-11-15 09:00 | CM.DPC ---
DCP Discharge Home Per Surgeon, pt tolerated surgery well and stable for d/c home today with no identified barriers to discharge. Per RN, no concerns at this time. Plan: Patient to d/c home later today via POV and no SW needs at this time. CONNIE Saenz
== END 2019-11-15 12:18 | disposition home or self-care (01) ==
LOC: ED 11:49 → AC 12:54
PROVIDERS: Admitting Provider Surgery; Emergency Provider Nurse Practitioner; Referring Provider Nurse Practitioner; Visit Provider Surgery
PROC: 0DTJ4ZZ Resection of Appendix, Percutaneous Endoscopic Approach (ICD-10-PCS; CPT 44970; principal; 2019-11-14 08:30)
DX: R10.31 Right lower quadrant pain (principal); K35.33 Acute appendicitis with perforation, localized peritonitis, and gangrene, with abscess; Z03.818 Encounter for observation for suspected exposure to other biological agents ruled out; K38.1 Appendicular concretions; K66.0 Peritoneal adhesions (postprocedural) (postinfection)
CPT/HCPCS: 44970; 36415; 74177; 80048; 80053; 81001; 83605; 83690; 83735; 84145; 85025; 87635; 96365; 96366; 96372; 96375; 96376; 99220; 99284; G0378; J1100; J1644; J1885; J2270; J2405; J2543; J2704; J3010; Q9967

== ENCOUNTER → 2019-11-18 12:53 | Outpatient (CLI) | payer OTHER, SELFPAY ==
[2019-11-13 14:30] VITALS: BMI 19.0
[2019-11-18 13:13] LABS: Hematocrit 36.8 % (36-46); Hemoglobin 12.7 g/dL (12.0-16.0); Mean Corpuscular HGB Conc 34.6 % (30-36); Mean Corpuscular Hemoglobin 31.6 PG (26-34); Mean Corpuscular Volume 91.4 fL (80-100); Platelet Count 290 X10^3/uL (150-400); Red Blood Cell Count 4.02 X10^6/uL (4.0-5.2); White Blood Cell Count 13.9 X10^3/uL (4.5-11.0)
[2019-11-18 13:14] LABS: Add Manual Diff / Slide Review YES
[2019-11-18 13:19] LABS: Alanine Aminotransferase 47 IU/L (<35); Albumin 3.3 g/dL (3.5-5.0); Albumin Globulin Ratio 1.1 (1.0-2.8); Alkaline Phosphatase 89 U/L (38-126); Aspartate Aminotransferase 58 IU/L (14-36); BUN Creatinine Ratio 13.6 (6-22); Bilirubin Total 0.3 mg/dL (0.2-1.3); Blood Urea Nitrogen 6 mg/dL (7-17); Calcium 8.4 mg/dL (8.4-10.2); Carbon Dioxide 29 mmol/L (22-32); Chloride 95 mmol/L (98-107); Estimated Glomerular Filt Rate > 60.0 mL/min (>60); Globulin 2.9 g/dL (1.7-4.1); Glucose 121 mg/dL (80-110); HEMOLYSIS < 15 (0-50); Potassium 3.8 mmol/L (3.4-5.1); Sodium 131 mmol/L (137-145); Total Protein 6.2 g/dL (6.3-8.2)
[2019-11-18 13:48] LABS: Neutrophils Absolute Manual 11815 /uL (3000-5900); Total Cells Counted 100
[2019-11-18 13:49] LABS: Dohle Bodies 2+; RBC Morphology Normal Morphology
== END ==
PROVIDERS: Referring Provider Surgery; Visit Provider Surgery
DX: Z90.49 Acquired absence of other specified parts of digestive tract (principal)
CPT/HCPCS: 36415; 80053; 85025

== ENCOUNTER → 2019-11-19 15:34 | Outpatient (CLI) | payer OTHER, SELFPAY ==
[2019-11-13 14:30] VITALS: BMI 19.0
--- NOTE | 2019-11-19 15:36 | DI.CT.S_ITS ---
PROCEDURE: CT ABDOMEN PELVIS W CON INDICATIONS: elevated WBC, malaise s/p appendectomy TECHNIQUE: After the administration of intravenous contrast, 5 mm thick sections acquired from the diaphragm to the symphysis. 5 mm coronal and sagittal reformats were acquired. For radiation dose reduction, the following was used: automated exposure control, adjustment of mA and/or kV according to patient size. COMPARISON: [facility], CT, CT ABDOMEN PELVIS W CON, 11/13/2019, 11:49. FINDINGS: Image quality: Excellent. ABDOMEN: Lung bases: Trace pleural effusions bilaterally. Bibasilar atelectasis. Lung bases are clear. Heart size is normal. Solid organs: Liver is normal in size and enhancement. Gallbladder is distended. Biliary system is non dilated. Pancreas enhances normally. Spleen is normal in size and enhancement. No adrenal nodules. Kidneys demonstrate normal size and enhancement, without hydronephrosis. Peritoneum and bowel: Postsurgical changes are present in the right lower quadrant, presumably related to appendectomy. There is a small amount of free fluid in the right paracolic gutter. There is thickening of terminal ileum. Possible tiny traluminal air in the right lower quadrant. No rim enhancing fluid collections to suggest abscess. Mild thickening of sigmoid colon may be present. There is a trace amount of free fluid. Bowel loops demonstrate normal wall thickness and caliber. No free fluid or air. Nodes and vessels: No retroperitoneal or mesenteric adenopathy by size criteria. Aorta and inferior vena cava are normal in size. Miscellaneous: Mild stranding around the umbilicus and abdominal wall at prior surgical ports. PELVIS: Genitourinary: Bladder wall may be mildly thickened but the bladder is not adequately distended. Miscellaneous: No inguinal hernias or adenopathy. Bones: No suspicious bony lesions. No vertebral body compression fractures. IMPRESSION: 1. Postsurgical changes are present in the right lower quadrant related to appendectomy. There is a small amount of free fluid in the right paracolic gutter. The terminal ileum is thickened. Possible tiny intraluminal air in the right lower quadrant. These findings could be secondary to postsurgical change but post surgical infection cannot be excluded. No rim enhancing fluid collections to suggest abscess. 2. Mild thickening of sigmoid colon. Cannot rule out mild colitis. 3. Distended gallbladder. This likely be due to fasting. 4. Bladder may be mildly thickened but the bladder is not adequately distended. Please correlate with symptoms and urinalysis if clinically indicated. 5. Trace bilateral pleural effusions and bibasilar atelectasis. The result was discussed with Dr. Ocasio. Dictated by: Bernie Torres M.D. on 11/19/2019 at 16:14 Approved by: Bernie Torres M.D. on 11/19/2019 at 16:33
== END ==
PROVIDERS: Referring Provider Surgery; Visit Provider Surgery
DX: D72.829 Elevated white blood cell count, unspecified (principal); R53.81 Other malaise; Z90.49 Acquired absence of other specified parts of digestive tract
CPT/HCPCS: 74177; Q9967

== ENCOUNTER 2019-11-22 11:38 | Inpatient (IN) | payer OTHER, SELFPAY ==
[2019-11-22] VITALS (9 sets, daily range): BP systolic 120–145; BP diastolic 59–84; PULSE 87–101; RESP 16–20; TEMP 36.6–38.2; O2SAT 94–100; BMI 21.9
--- NOTE | 2019-11-22 11:49 | DI.RAD.S_ITS ---
PROCEDURE: XR ACUTE ABDOMEN SERIES INDICATIONS: post op, n/v/d TECHNIQUE: One view chest and two views of the abdomen were acquired. COMPARISON: [facility], CT, CT ABDOMEN PELVIS W CON, 11/19/2019, 15:34. FINDINGS: Surgical changes and devices: None. Chest: No focal consolidation is evident. No effusion or pneumothorax is appreciated. Heart size is normal. No pleural effusions. No pneumoperitoneum. Abdomen: A couple air-filled dilated small bowel loops are identified, measuring up to approximately 4.3 cm. Corresponding multiple air-fluid levels are identified. There is relative paucity of bowel gas within the colon. No definite pneumoperitoneum is appreciated. The No suspicious calcifications. Visualized solid organ contours appear normal. Bones: No suspicious bony lesions. IMPRESSION: Overall findings are highly suggestive of a small bowel obstruction. However, a prominent small bowel ileus could potentially result in this appearance and clinical correlation is recommended. Followup imaging is also recommended. Dictated by: Mainor Vigil M.D. on 11/22/2019 at 11:27 Approved by: Mainor Vigil M.D. on 11/22/2019 at 11:28
--- NOTE | 2019-11-22 12:03 | ED.RECABL ---
HPI - Recheck/Abnormal Lab/Rx <SAMINA Woodward - Last Filed: 11/22/19 15:30> General Chief Complaint: Recheck/Abnormal Lab/Rx Stated Complaint: had surgery last sat and not feeling well Time Seen by Provider: 11/22/19 11:41 Source: patient Mode of arrival: Ambulatory Limitations: no limitations History of Present Illness HPI narrative: The patient is a 64-year-old female nonsmoker with history of acute appendicitis who presents for chief complaint of generalized not feeling well. She had surgery for acute appendicitis on SaturdayNovember 13 and was found to have a perforated appendix. She had follow-up with her surgeon on 11/17, had her drain removed at that point time. She states on she started feeling poorly with nausea and diarrhea. Did take Zofran this morning. She feels like she is having a hard time eating and drinking. She states that she had a 1 normal stool followed by diarrhea. She denies any fevers. She complains of general fatigue and general malaise. She wonders if it is because she has a hard time eating, and thus not eating when she needs in order to heal. She has not had any solid food yet today, only intake has been airborne drink at 9:00 a.m.. Related Data Home Medications Medication Instructions Recorded Confirmed clonazepam [Klonopin] 0.25 mg PO DAILY PRN 11/13/19 11/22/19 Previous Rx's Medication Instructions Recorded ondansetron 4 mg oral soluble film 4 mg PO Q6H PRN #30 each 11/18/19 Allergies Allergy/AdvReac Type Severity Reaction Status Date / Time ciprofloxacin [From Cipro] AdvReac Dizzy Verified 11/18/19 12:12 Review of Systems <SAMINA Woodward - Last Filed: 11/22/19 15:30> Review of Systems Narrative: GENERAL: See HPI HEENT: Denies sinus pain, ear pain, sore throat, difficulty swallowing, dizziness. RESPIRATORY: Denies dyspnea, cough, wheezing, hemoptysis, sputum. CARDIOVASCULAR: Denies chest pain, palpitations, orthopnea, edema, GASTROINTESTINAL: See HPI : Denies dysuria, frequency, incontinence, hematuria, urinary retention. MUSCULOSKELETAL: denies weakness, joint pain, or bony pain SKIN: See HPI NEUROLOGIC: Denies weakness, headache, numbness, change in speech, confusion, seizures, incoordination. PSYCHIATRIC: No concerning psychosocial issues. 12 point review of systems is negative except for those stated above Patient History <Itzel SAMINA Tinajero - Last Filed: 11/22/19 15:30> Medical History Fibromyalgia (Acute) No significant medical problems (Acute) Social History household members: none Smoking Status: Never smoker alcohol intake: never Smoking Status: Never smoker alcohol intake frequency: a few times a week Alcohol type: wine Substance Use Type: does not use Exam <SAMINA Woodward - Last Filed: 11/22/19 15:30> Narrative Exam Narrative: GENERAL: This is a well-nourished, well-developed patient, in no acute distress HEAD: Atraumatic. Normocephalic. No temporal or scalp tenderness. EYES: Pupils equal round and reactive. Extraocular motions intact. No scleral icterus. No injection or drainage. ENT: Nose without bleeding, purulent drainage or septal hematoma. Throat without erythema, tonsillar hypertrophy or exudate. Uvula midline. Airway patent. NECK: Trachea midline. No JVD or lymphadenopathy. Supple, nontender, no meningeal signs. CARDIOVASCULAR: Regular rate and rhythm RESPIRATORY: Clear to auscultation. Breath sounds equal bilaterally. No wheezes, rales, or rhonchi. No cough. No increased respiratory effort. No accessory muscle use. GASTROINTESTINAL: Abdomen soft, non-tender to palpation, nondistended. No hepato-splenomegaly, or palpable masses. No guarding. Skin exam is noted. Active bowel sounds all 4 quadrants. EXTREMITIES: No clubbing, cyanosis, or edema. No joint tenderness, effusion, or edema noted. BACK: Nontender without deformity or crepitance. No flank tenderness. NEURO: AOx3. SKIN: Surgical incisions No drainage noted. No erythema noted. Initial Vital Signs Initial Vital Signs: Vital Signs Temperature 97.8 F 11/22/19 11:45 Pulse Rate 98 H 11/22/19 11:45 Respiratory Rate 19 11/22/19 11:45 Blood Pressure 140/69 11/22/19 11:45 Pulse Oximetry 98 05/03/20 11:45 <Itzel Olivarez DO - Last Filed: 11/22/19 18:29> Initial Vital Signs Initial Vital Signs: Vital Signs Temperature 97.8 F 11/22/19 11:45 Pulse Rate 98 H 11/22/19 11:45 Respiratory Rate 19 11/22/19 11:45 Blood Pressure 140/69 11/22/19 11:45 Pulse Oximetry 98 11/22/19 11:45 Course <TOOTIE Woodward-BC - Last Filed: 11/22/19 15:30> Orders Ordered: ED Orders 11/22/19 11:49 XR acute abdomen series Stat 11/22/19 11:50 Amylase Stat Complete Blood Count AUTO DIFF Stat Comprehensive Metabolic Panel Stat Lipase Stat 11/22/19 12:35 Lactate (Lactic Acid) Stat 11/22/19 12:45 CT abdomen pelvis w con Stat 11/22/19 14:40 Blood Culture Stat Clonazepam (Klonopin) 0.25 mg PO BID PRN PRN Reason: Anxiety Diphenhydramine HCl (Benadryl) 25 mg IV Q6HR PRN PRN Reason: Itching Heparin Sodium (Porcine) (Heparin) 5,000 unit SUBCUT BID ELI Piperacillin/Tazobactam/Dextrose (Zosyn) 3.375 gm in 50 mls @ 100 mls/hr IV Q6H ELI Metronidazole (Flagyl) 500 mg in 100 mls @ 100 mls/hr IV Q8H ELI Last Admin: 11/22/19 16:48 Dose: 100 mls/hr Documented by: LVAZQUE Potassium Chloride/Sodium Chloride (Ns With Kcl 40 Meq) 1,000 mls @ 100 mls/hr IV CONT ELI Ketorolac Tromethamine (Toradol) 15 mg IV Q6H PRN PRN Reason: Pain, Moderate (4-6) Stop: 11/27/19 14:51 Naloxone HCl (Narcan) 0.2 mg IV Q2MIN PRN PRN Reason: Opiate Reversal Ondansetron HCl (Zofran) 4 mg IV Q4HR PRN PRN Reason: Nausea And Vomiting Discontinued Medications Sodium Chloride (Normal Saline 0.9%) 1,000 mls @ 1,000 mls/hr IV BOLUS ONE Stop: 11/22/19 12:48 Last Infusion: 11/22/19 13:46 Dose: 0 mls/hr Documented by: Admin: 11/22/19 12:18 Dose: 1,000 mls/hr Documented by: FEI Piperacillin/Tazobactam/Dextrose (Zosyn) 3.375 gm in 50 mls @ 100 mls/hr IV NOW ONE Stop: 11/22/19 14:53 Last Infusion: 11/22/19 15:19 Dose: 0 mls/hr Documented by: Admin: 11/22/19 14:44 Dose: 100 mls/hr Documented by: FEI Metronidazole (Flagyl) 500 mg in 100 mls @ 100 mls/hr IV NOW ONE Stop: 11/22/19 15:23 Last Admin: 11/22/19 16:16 Dose: Not Given Documented by: KELLI Sodium Chloride (Normal Saline 0.9%) 1,000 mls @ 100 mls/hr IV CONT ELI Last Admin: 11/22/19 16:48 Dose: 100 mls/hr Documented by: KELLI Reevaluation(s) Reevaluation #1: The patient remains pain-free, no nausea, denies any needs at this point time Time: 13:45 Consultations Consultation #1: Spoke with Dr Ocasio regarding patient. Plan to order CT abdomen pelvis with contrast, blood cultures, GI panel, urinalysis, rapid coronavirus testing. Spoke with Eugene from the lab to ensure that coronavirus testing is done and a rapid manner. Arranged care with nurse Nury. Also discussed care with patient at this point time who is understanding of plan for CT, need for GI panel and repeat coronavirus testing. Patient denies any at this point in time and states accordance with plan. Time: 12:20 Vital Signs Vital signs: Vital Signs - 8 hr 11/22/19 11:45 11/22/19 12:30 11/22/19 13:18 Temperature 97.8 F Pulse Rate 98 H 96 H 101 H Respiratory Rate 19 Blood Pressure 140/69 Blood Pressure [Right Arm] 132/67 145/65 H Pulse Oximetry 98 98 99 11/22/19 14:00 Temperature Pulse Rate 94 H Respiratory Rate Blood Pressure Blood Pressure [Right Arm] 126/84 Pulse Oximetry 95 <Itzel Olivarez DO - Last Filed: 11/22/19 18:29> Orders Ordered: ED Orders 11/22/19 11:49 XR acute abdomen series Stat 11/22/19 11:50 Amylase Stat Complete Blood Count AUTO DIFF Stat Comprehensive Metabolic Panel Stat Lipase Stat 11/22/19 12:35 Lactate (Lactic Acid) Stat 11/22/19 12:45 CT abdomen pelvis w con Stat 11/22/19 14:40 Blood Culture Stat Clonazepam (Klonopin) 0.25 mg PO BID PRN PRN Reason: Anxiety Diphenhydramine HCl (Benadryl) 25 mg IV Q6HR PRN PRN Reason: Itching Heparin Sodium (Porcine) (Heparin) 5,000 unit SUBCUT BID ELI Piperacillin/Tazobactam/Dextrose (Zosyn) 3.375 gm in 50 mls @ 100 mls/hr IV Q6H ELI Metronidazole (Flagyl) 500 mg in 100 mls @ 100 mls/hr IV Q8H ELI Last Admin: 11/22/19 16:48 Dose: 100 mls/hr Documented by: KELLI Potassium Chloride/Sodium Chloride (Ns With Kcl 40 Meq) 1,000 mls @ 100 mls/hr IV CONT ELI Ketorolac Tromethamine (Toradol) 15 mg IV Q6H PRN PRN Reason: Pain, Moderate (4-6) Stop: 11/27/19 14:51 Naloxone HCl (Narcan) 0.2 mg IV Q2MIN PRN PRN Reason: Opiate Reversal Ondansetron HCl (Zofran) 4 mg IV Q4HR PRN PRN Reason: Nausea And Vomiting Discontinued Medications Sodium Chloride (Normal Saline 0.9%) 1,000 mls @ 1,000 mls/hr IV BOLUS ONE Stop: 11/22/19 12:48 Last Infusion: 11/22/19 13:46 Dose: 0 mls/hr Documented by: Admin: 11/22/19 12:18 Dose: 1,000 mls/hr Documented by: FEI Piperacillin/Tazobactam/Dextrose (Zosyn) 3.375 gm in 50 mls @ 100 mls/hr IV NOW ONE Stop: 11/22/19 14:53 Last Infusion: 11/22/19 15:19 Dose: 0 mls/hr Documented by: Admin: 11/22/19 14:44 Dose: 100 mls/hr Documented by: FEI Metronidazole (Flagyl) 500 mg in 100 mls @ 100 mls/hr IV NOW ONE Stop: 11/22/19 15:23 Last Admin: 11/22/19 16:16 Dose: Not Given Documented by: KELLI Sodium Chloride (Normal Saline 0.9%) 1,000 mls @ 100 mls/hr IV CONT ELI Last Admin: 11/22/19 16:48 Dose: 100 mls/hr Documented by: KELLI Vital Signs Vital signs: Vital Signs - 8 hr 11/22/19 11:45 11/22/19 12:30 11/22/19 13:18 Temperature 97.8 F Pulse Rate 98 H 96 H 101 H Respiratory Rate 19 Blood Pressure 140/69 Blood Pressure [Right Arm] 132/67 145/65 H Pulse Oximetry 98 98 99 11/22/19 14:00 Temperature Pulse Rate 94 H Respiratory Rate Blood Pressure Blood Pressure [Right Arm] 126/84 Pulse Oximetry 95 MDM - Recheck/Abnormal Lab/Rx <SAMINA Woodward - Last Filed: 11/22/19 15:30> Differential Diagnosis Differential diagnosis: Likely other (Postoperative infection versus abscess versus small-bowel obstruction versus UTI versus viral illness versus gastroenteritis) Lab Data Result diagrams: 11/22/19 11:50 11/22/19 11:50 Labs: Lab Results 11/22/19 11/22/19 11/22/19 Range/Units 11:50 11:50 11:50 WBC 21.4 H (4.5-11.0) X10^3/uL RBC 3.82 L (4.0-5.2) X10^6/uL Hgb 11.9 L (12.0-16.0) g/dL Hct 34.7 L (36-46) % MCV 90.7 (80-100) fL MCH 31.0 (26-34) PG MCHC 34.2 (30-36) % RDW 12.9 (11.6-14.8) % Plt Count 536 H (150-400) X10^3/uL Neut % (Auto) 91.8 H (50-75) % Lymph % (Auto) 3.7 L (25-40) % [place] % (Auto) 4.3 (3-14) % Eos % (Auto) 0.0 L (2-4) % Baso % (Auto) 0.2 (0-2) % Neut # (Auto) 07586 H (1689-1963) /uL Lymph # (Auto) 800 L (1436-1809) /uL [place] # (Auto) 900 (0-900) /uL Eos # (Auto) 0 (0-450) /uL Baso # (Auto) 0 (0-100) /uL Sodium 128 L (137-145) mmol/L Potassium 3.3 L (3.4-5.1) mmol/L Chloride 91 L (98-107) mmol/L Carbon Dioxide 29 (22-32) mmol/L BUN 6 L (7-17) mg/dL Creatinine 0.42 L (0.52-1.04) mg/dL Estimated GFR > 60.0 (>60) mL/min BUN/Creatinine Ratio 14.3 (6-22) Glucose 129 H (80-110) mg/dL Lactate (0.7-2.1) mmol/L Calcium 8.2 L (8.4-10.2) mg/dL Total Bilirubin 0.5 (0.2-1.3) mg/dL AST 42 H (14-36) IU/L ALT 37 H (<35) IU/L Alkaline Phosphatase 108 (38-126) U/L C-Reactive Protein 25.9 H (<1.0) mg/dL Total Protein 6.1 L (6.3-8.2) g/dL Albumin 3.1 L (3.5-5.0) g/dL Globulin 3.0 (1.7-4.1) g/dL Albumin/Globulin Ratio 1.0 (1.0-2.8) Amylase 75 (30-110) U/L Lipase 103 D (23-300) U/L COVID-19 PCR 11/22/19 11/22/19 11/22/19 Range/Units 12:35 12:51 13:18 WBC (4.5-11.0) X10^3/uL RBC (4.0-5.2) X10^6/uL Hgb (12.0-16.0) g/dL Hct (36-46) % MCV (80-100) fL MCH (26-34) PG MCHC (30-36) % RDW (11.6-14.8) % Plt Count (150-400) X10^3/uL Neut % (Auto) (50-75) % Lymph % (Auto) (25-40) % [place] % (Auto) (3-14) % Eos % (Auto) (2-4) % Baso % (Auto) (0-2) % Neut # (Auto) (3081-1588) /uL Lymph # (Auto) (0549-1421) /uL [place] # (Auto) (0-900) /uL Eos # (Auto) (0-450) /uL Baso # (Auto) (0-100) /uL Sodium (137-145) mmol/L Potassium (3.4-5.1) mmol/L Chloride (98-107) mmol/L Carbon Dioxide (22-32) mmol/L BUN (7-17) mg/dL Creatinine (0.52-1.04) mg/dL Estimated GFR (>60) mL/min BUN/Creatinine Ratio (6-22) Glucose (80-110) mg/dL Lactate 1.4 (0.7-2.1) mmol/L Calcium (8.4-10.2) mg/dL Total Bilirubin (0.2-1.3) mg/dL AST (14-36) IU/L ALT (<35) IU/L Alkaline Phosphatase (38-126) U/L C-Reactive Protein (<1.0) mg/dL Total Protein (6.3-8.2) g/dL Albumin (3.5-5.0) g/dL Globulin (1.7-4.1) g/dL Albumin/Globulin Ratio (1.0-2.8) Amylase (30-110) U/L Lipase (23-300) U/L COVID-19 PCR Cancelled Negative Urine Dip Bedside Urine Glucose Negative Bedside Urine Bilirubin - Negative Bedside Urine Ketone - Negative Urine Specific Palmer 1.010 Bedside Urine Occult Blood - Negative Bedside Urine pH 7.5 Bedside Urine Protein - Negative Bedside Urine Urobilinogen - Negative Bedside Urine Nitrite - Negative Bedside Urine Leukocytes - Negative Esterase Imaging Data Abdominal x-ray: Radiologist's Impression: [facility] [place] [id number] XRay Report Signed Patient: Gurvinder Benitezr DMR#: [id number] : 6Acct:[id number] Age/Sex: 64 / FDate of Service: 11/22/19 Loc: ED Accession Number: [id number] Procedure: XR acute abdomen series Ordering Provider: Itzel Tinajero-BROCK PROCEDURE: XR ACUTE ABDOMEN SERIES INDICATIONS: post op, n/v/d TECHNIQUE: One view chest and two views of the abdomen were acquired. COMPARISON: [facility], CT, CT ABDOMEN PELVIS W CON, 11/19/2019, 15:34. FINDINGS: Surgical changes and devices: None. Chest: No focal consolidation is evident. No effusion or pneumothorax is appreciated. Heart size is normal. No pleural effusions. No pneumoperitoneum. Abdomen: A couple air-filled dilated small bowel loops are identified, measuring up to approximately 4.3 cm. Corresponding multiple air-fluid levels are identified. There is relative paucity of bowel gas within the colon. No definite pneumoperitoneum is appreciated. The No suspicious calcifications. Visualized solid organ contours appear normal. Bones: No suspicious bony lesions. IMPRESSION: Overall findings are highly suggestive of a small bowel obstruction. However, a prominent small bowel ileus could potentially result in this appearance and clinical correlation is recommended. Followup imaging is also recommended. Dictated by: Mainor Vigil M.D. on 11/22/2019 at 11:27 Approved by: Mainor Vigil M.D. on 11/22/2019 at 11:28 CT scan - abdomen/pelvis: Radiologist's Impression: [address] [place] [address] CT Scan Report Signed Patient: Ena Benitez [facility]#: [id number] : 6At:[id number] Age/Sex: 64 / FDate of Service: 11/22/19 Loc: ED Accession Number: [id number] Procedure: CT abdomen pelvis w con Ordering Provider: Itzel Tinajero-BROCK PROCEDURE: CT ABDOMEN PELVIS W CON INDICATIONS: post op, elevated wbc TECHNIQUE: After the administration of oral and intravenous contrast, 5 mm thick sections acquired from the diaphragms to the symphysis. 5 mm thick coronal and sagittal reformats were performed. For radiation dose reduction, the following was used: automated exposure control, adjustment of mA and/or kV according to patient size. COMPARISON: [facility], CT, CT ABDOMEN PELVIS W CON, 11/19/2019, 15:34. [facility], CT, CT ABDOMEN PELVIS W CON, 11/13/2019, 11:49. FINDINGS: Image quality: Diagnostic. ABDOMEN: Lung bases: Lung there has been interval development of a trace right-sided pleural effusion with associated mild atelectasis. There is also mild atelectasis involving the posterior left lower lobe. No significant left-sided pleural effusion is identified. Heart size is normal. Solid organs: The liver is normal in size. The gallbladder is within normal limits without significant gallbladder wall inflammation. The portal vein is patent. There is no intrahepatic or extrahepatic biliary dilatation. The spleen is unremarkable. The pancreas and adrenals are within normal limits. Both kidneys are normal in size. Small simple appearing renal cysts appear to be present. There is no hydronephrosis. Peritoneum and bowel: The stomach is within normal limits. Prominent dilatation of numerous small bowel loops throughout the abdomen is identified. These dilated small bowel loops are seen within the left hemiabdomen, predominantly. There is a transition point identified within the right lower quadrant where the ileal bowel loops are decompressed with respect to the more proximal dilated small bowel loops. Swirling of bowel loops within this region as well as the vascular structures is identified. Air and stool are identified within the colon. There is prominent thickening identified involving the cecum and the ascending colon. There is borderline wall thickening involving the remainder portions of the colon. However, the rest of the colon is noted to be decompressed with additional areas of the wall thickening, similar to the prior study. Edema within fissure is present. There is a small amount of free fluid identified within the abdomen. No definite free air is evident. No loculated fluid collections are appreciated. Nodes and vessels: No retroperitoneal or mesenteric adenopathy. Aorta and inferior vena cava are normal in caliber. Bones: No ventral hernias. PELVIS: Genitourinary: Bladder wall thickness is normal. The uterus and ovaries are not enlarged or adequately characterized on CT. Miscellaneous: No inguinal hernias or adenopathy. A small amount of free fluid is seen within the pelvis. There is no drainable or loculated fluid collection. Bones: No suspicious bony lesions. No vertebral body compression fractures. IMPRESSION: 1. Small bowel obstruction with the transition identified within the right lower quadrant. Swirling bowel loops within this region does raise suspicion for a potential internal hernia as the etiology. However, adhesions could also result in this appearance and clinical correlation is recommended. 2. Multifocal areas of wall thickening involving the colon are similar to the previous exam and likely represents either an infectious or inflammatory colitis and clinical correlation is advised. 3. Interval development of mild ascites is probably small bowel obstruction. There is no abscess or drainable fluid collection. 4. Trace right-sided pleural effusion with associated atelectasis. There is also minimal left basilar atelectasis. Borderline prominent lymph nodes are seen within the mesentery, best appreciated within the ileocolic region. Dictated by: Mainor Vigil M.D. on 11/22/2019 at 12:14 Approved by: Mainor Vigil M.D. on 11/22/2019 at 12:20 MDM Narrative Medical decision making narrative: Who presents for general complaint of not feeling well since her laparoscopic appendectomy last Saturday. The patient is found to have leukocytosis with a white count of 21. She generally appears fatigued and not feeling well, that is afebrile. As per Dr. Ocasio, the patient's surgeon, a CT abdomen pelvis was obtained which shows concern of possible bowel obstruction versus internal hernia. The patient has normal urinalysis but does complain of diarrhea. GI panel was ordered to help rule out C diff, though patient is unable to provide sample in the emergency department. Dr Ocasio kindly came to see the patient and accepted the patient for admission. Zosyn and Flagyl were ordered as per her instructions. Patient admitted to observation status without incident. <Itzel Olivarez, DO - Last Filed: 11/22/19 18:29> Lab Data Labs: Lab Results 11/22/19 11/22/19 11/22/19 Range/Units 11:50 11:50 11:50 WBC 21.4 H (4.5-11.0) X10^3/uL RBC 3.82 L (4.0-5.2) X10^6/uL Hgb 11.9 L (12.0-16.0) g/dL Hct 34.7 L (36-46) % MCV 90.7 (80-100) fL MCH 31.0 (26-34) PG MCHC 34.2 (30-36) % RDW 12.9 (11.6-14.8) % Plt Count 536 H (150-400) X10^3/uL Neut % (Auto) 91.8 H (50-75) % Lymph % (Auto) 3.7 L (25-40) % [place] % (Auto) 4.3 (3-14) % Eos % (Auto) 0.0 L (2-4) % Baso % (Auto) 0.2 (0-2) % Neut # (Auto) 26187 H (4279-7485) /uL Lymph # (Auto) 800 L (3181-8063) /uL [place] # (Auto) 900 (0-900) /uL Eos # (Auto) 0 (0-450) /uL Baso # (Auto) 0 (0-100) /uL Sodium 128 L (137-145) mmol/L Potassium 3.3 L (3.4-5.1) mmol/L Chloride 91 L (98-107) mmol/L Carbon Dioxide 29 (22-32) mmol/L BUN 6 L (7-17) mg/dL Creatinine 0.42 L (0.52-1.04) mg/dL Estimated GFR > 60.0 (>60) mL/min BUN/Creatinine Ratio 14.3 (6-22) Glucose 129 H (80-110) mg/dL Lactate (0.7-2.1) mmol/L Calcium 8.2 L (8.4-10.2) mg/dL Total Bilirubin 0.5 (0.2-1.3) mg/dL AST 42 H (14-36) IU/L ALT 37 H (<35) IU/L Alkaline Phosphatase 108 (38-126) U/L C-Reactive Protein 25.9 H (<1.0) mg/dL Total Protein 6.1 L (6.3-8.2) g/dL Albumin 3.1 L (3.5-5.0) g/dL Globulin 3.0 (1.7-4.1) g/dL Albumin/Globulin Ratio 1.0 (1.0-2.8) Amylase 75 (30-110) U/L Lipase 103 D (23-300) U/L COVID-19 PCR 11/22/19 11/22/19 11/22/19 Range/Units 12:35 12:51 13:18 WBC (4.5-11.0) X10^3/uL RBC (4.0-5.2) X10^6/uL Hgb (12.0-16.0) g/dL Hct (36-46) % MCV (80-100) fL MCH (26-34) PG MCHC (30-36) % RDW (11.6-14.8) % Plt Count (150-400) X10^3/uL Neut % (Auto) (50-75) % Lymph % (Auto) (25-40) % [place] % (Auto) (3-14) % Eos % (Auto) (2-4) % Baso % (Auto) (0-2) % Neut # (Auto) (5857-8585) /uL Lymph # (Auto) (3925-9611) /uL [place] # (Auto) (0-900) /uL Eos # (Auto) (0-450) /uL Baso # (Auto) (0-100) /uL Sodium (137-145) mmol/L Potassium (3.4-5.1) mmol/L Chloride (98-107) mmol/L Carbon Dioxide (22-32) mmol/L BUN (7-17) mg/dL Creatinine (0.52-1.04) mg/dL Estimated GFR (>60) mL/min BUN/Creatinine Ratio (6-22) Glucose (80-110) mg/dL Lactate 1.4 (0.7-2.1) mmol/L Calcium (8.4-10.2) mg/dL Total Bilirubin (0.2-1.3) mg/dL AST (14-36) IU/L ALT (<35) IU/L Alkaline Phosphatase (38-126) U/L C-Reactive Protein (<1.0) mg/dL Total Protein (6.3-8.2) g/dL Albumin (3.5-5.0) g/dL Globulin (1.7-4.1) g/dL Albumin/Globulin Ratio (1.0-2.8) Amylase (30-110) U/L Lipase (23-300) U/L COVID-19 PCR Cancelled Negative Urine Dip Bedside Urine Glucose Negative Bedside Urine Bilirubin - Negative Bedside Urine Ketone - Negative Urine Specific Palmer 1.010 Bedside Urine Occult Blood - Negative Bedside Urine pH 7.5 Bedside Urine Protein - Negative Bedside Urine Urobilinogen - Negative Bedside Urine Nitrite - Negative Bedside Urine Leukocytes - Negative Esterase Discharge Plan Departure Patient Disposition: Admitted as Observation Clinical Impression: Small bowel obstruction Discharge Date/Time: 11/22/19 15:28 Admit Date/Time: 11/22/19 14:21 Admit Provider: Orquidea Ocasio
[2019-11-22] MEDS: SODIUM CHLORIDE 0.9% 1,000 ML 1000 ML IV (12:18)
[2019-11-22 12:27] LABS: Alanine Aminotransferase 37 IU/L (<35); Albumin 3.1 g/dL (3.5-5.0); Alkaline Phosphatase 108 U/L (38-126); Amylase 75 U/L (30-110); Aspartate Aminotransferase 42 IU/L (14-36); BUN Creatinine Ratio 14.3 (6-22); Bilirubin Total 0.5 mg/dL (0.2-1.3); Blood Urea Nitrogen 6 mg/dL (7-17); Calcium 8.2 mg/dL (8.4-10.2); Carbon Dioxide 29 mmol/L (22-32); Chloride 91 mmol/L (98-107); Estimated Glomerular Filt Rate > 60.0 mL/min (>60); Glucose 129 mg/dL (80-110); HEMOLYSIS < 15 (0-50); Lipase 103 U/L (23-300); Potassium 3.3 mmol/L (3.4-5.1); Sodium 128 mmol/L (137-145); Total Protein 6.1 g/dL (6.3-8.2)
[2019-11-22 12:33] LABS: Add Manual Diff / Slide Review NO; Basophils Absolute Auto 0 /uL (0-100); Basophils Percent Auto 0.2 % (0-2); Eosinophils Absolute Auto 0 /uL (0-450); Hematocrit 34.7 % (36-46); Hemoglobin 11.9 g/dL (12.0-16.0); Lymphocytes Absolute Auto 800 /uL (1100-4500); Lymphocytes Percent Auto 3.7 % (25-40); Mean Corpuscular HGB Conc 34.2 % (30-36); Mean Corpuscular Volume 90.7 fL (80-100); Monocytes Absolute Auto 900 /uL (0-900); Monocytes Percent Auto 4.3 % (3-14); Neutrophils Absolute Auto 19700 /uL (1500-7000); Neutrophils Percent Auto 91.8 % (50-75); Platelet Count 536 X10^3/uL (150-400); Red Blood Cell Count 3.82 X10^6/uL (4.0-5.2); Red Cell Distribution Width 12.9 % (11.6-14.8); White Blood Cell Count 21.4 X10^3/uL (4.5-11.0)
--- NOTE | 2019-11-22 12:45 | DI.CT.S_ITS ---
PROCEDURE: CT ABDOMEN PELVIS W CON INDICATIONS: post op, elevated wbc TECHNIQUE: After the administration of oral and intravenous contrast, 5 mm thick sections acquired from the diaphragms to the symphysis. 5 mm thick coronal and sagittal reformats were performed. For radiation dose reduction, the following was used: automated exposure control, adjustment of mA and/or kV according to patient size. COMPARISON: [facility], CT, CT ABDOMEN PELVIS W CON, 11/19/2019, 15:34. [facility], CT, CT ABDOMEN PELVIS W CON, 11/13/2019, 11:49. FINDINGS: Image quality: Diagnostic. ABDOMEN: Lung bases: Lung there has been interval development of a trace right-sided pleural effusion with associated mild atelectasis. There is also mild atelectasis involving the posterior left lower lobe. No significant left-sided pleural effusion is identified. Heart size is normal. Solid organs: The liver is normal in size. The gallbladder is within normal limits without significant gallbladder wall inflammation. The portal vein is patent. There is no intrahepatic or extrahepatic biliary dilatation. The spleen is unremarkable. The pancreas and adrenals are within normal limits. Both kidneys are normal in size. Small simple appearing renal cysts appear to be present. There is no hydronephrosis. Peritoneum and bowel: The stomach is within normal limits. Prominent dilatation of numerous small bowel loops throughout the abdomen is identified. These dilated small bowel loops are seen within the left hemiabdomen, predominantly. There is a transition point identified within the right lower quadrant where the ileal bowel loops are decompressed with respect to the more proximal dilated small bowel loops. Swirling of bowel loops within this region as well as the vascular structures is identified. Air and stool are identified within the colon. There is prominent thickening identified involving the cecum and the ascending colon. There is borderline wall thickening involving the remainder portions of the colon. However, the rest of the colon is noted to be decompressed with additional areas of the wall thickening, similar to the prior study. Edema within fissure is present. There is a small amount of free fluid identified within the abdomen. No definite free air is evident. No loculated fluid collections are appreciated. Nodes and vessels: No retroperitoneal or mesenteric adenopathy. Aorta and inferior vena cava are normal in caliber. Bones: No ventral hernias. PELVIS: Genitourinary: Bladder wall thickness is normal. The uterus and ovaries are not enlarged or adequately characterized on CT. Miscellaneous: No inguinal hernias or adenopathy. A small amount of free fluid is seen within the pelvis. There is no drainable or loculated fluid collection. Bones: No suspicious bony lesions. No vertebral body compression fractures. IMPRESSION: 1. Small bowel obstruction with the transition identified within the right lower quadrant. Swirling bowel loops within this region does raise suspicion for a potential internal hernia as the etiology. However, adhesions could also result in this appearance and clinical correlation is recommended. 2. Multifocal areas of wall thickening involving the colon are similar to the previous exam and likely represents either an infectious or inflammatory colitis and clinical correlation is advised. 3. Interval development of mild ascites is probably small bowel obstruction. There is no abscess or drainable fluid collection. 4. Trace right-sided pleural effusion with associated atelectasis. There is also minimal left basilar atelectasis. Borderline prominent lymph nodes are seen within the mesentery, best appreciated within the ileocolic region. Dictated by: Mainor Vigil M.D. on 11/22/2019 at 12:14 Approved by: Mainor Vigil M.D. on 11/22/2019 at 12:20
[2019-11-22 12:54] LABS: Lactate (Lactic Acid) 1.4 mmol/L (0.7-2.1)
[2019-11-22 14:17] LABS: COVID19 -Nasal RAPID Negative (Negative)
[2019-11-22] MEDS: PIPERACILLIN-TAZO 3.375 GM/50 ML FROZ.PIGGY IV ×2 (14:44→19:48)
--- NOTE | 2019-11-22 15:02 | P.HP_ITS ---
History of Present Illness History of Present Illness Date Patient Seen: 11/22/19 Time Patient Seen: 15:02 Chief complaint: had surgery last sat and not feeling well Narrative: This is a 64-year-old woman who came in 1 week ago with acute perforated appendicitis and had a laparoscopic appendectomy and abdominal washout with a drain left in. On postop day 4 she was seen in clinic, and was doing well, and her drain was putting out serous fluid. The drain was removed in clinic. I sent her for some labs that day, and her white blood cell count was 14. Because of this I sent her for CT scan, which showed relatively normal postop findings, with no indication of an abscess, or obstruction. I have been keeping up with her over the last few days. She has been having some intermittent nausea but she felt like it was getting better. Today she texted me and said that she was more nauseated and having diarrhea. She said she was unable to keep things down well. So I had her come into the ER, where she was found to have white blood cell count of 21. Another CT scan was done, which does not show any abscess or fluid collection, but shows some loops of bowel stuck down in the right lower quadrant. Her lactate is 1.4. Her electrolytes are a bit off, likely from poor p.o. intake and dehydration, but her creatinine is normal. I asked the ER to send a urine sample for culture and stool sample for C diff, as well as blood cultures. The patient says that she has been feeling general malaise, and worsening nausea over the past few days. She has not pa ssed any blood or tarry colored stool. Her stools have been brown and watery. She took some Pepto-Bismol, which helped improve her diarrhea, but she continues to have nausea. She has not had any subjective fevers or chills. She says that she has fibromyalgia, and she feels like her immune system is going crazy. ROS: The patient denies dysuria, cough, cold symptoms, shortness of breath. Thirteen system review is otherwise negative other than as mentioned below and in HPI. PE: GENERAL: Alert, fatigued appearing, uncomfortable appearing. Appears stated age. Answers questions promptly and appropriately. Vital signs noted. HENT: Normocephalic, atraumatic. Hearing intact. Oral mucosa is pink and moist. EYES: Conjunctiva pink, sclera white, no periorbital swelling. CARDIOVASCULAR: Mild tachycardia at 101. No pedal edema. RESPIRATORY: Non-tachypneic, breathing comfortably on room air. GASTROINTESTINAL: Abdomen soft and mildly distended; no tenderness on palpation, surgical incisions are clean dry and intact, without any erythema GENITALURINARY: No flank tenderness bilaterally. MUSCULOSKELETAL: Equal tone and mass bilaterally. SKIN: Warm, dry, soft, appropriate color for ethnicity. No other lesions, rashes, or wounds. NEURO: Alert and Oriented X 3. No gross sensory deficits, or cognitive issues. PSYCH: Appropriate affect and mood. Patient History Medical History Fibromyalgia (Acute) No significant medical problems (Acute) Family & Social History Social History: household members none Safety & Behavioral: Feels Safe in Current Yes Environment Tobacco & Substance use: Smoking Status Never smoker alcohol intake never alcohol intake frequency a few times a week Substance Use Type does not use Meds Home Medications and Allergies Home Medications Medication Instructions Recorded Confirmed Type clonazepam [Klonopin] 0.25 mg PO DAILY PRN 11/13/19 11/18/19 History docusate sodium 100 mg PO BID #20 tab 11/15/19 11/18/19 Rx oxycodone 5 mg PO Q4H PRN #20 tab 11/15/19 11/18/19 Rx ondansetron 4 mg oral soluble film 4 mg PO Q6H PRN #30 each 11/18/19 11/18/19 Rx Allergies Allergy/AdvReac Type Severity Reaction Status Date / Time ciprofloxacin [From Cipro] AdvReac Dizzy Verified 11/18/19 12:12 Exam Vital Signs (past 8 hours): - 11/22/19 11:45 11/22/19 12:30 11/22/19 13:18 Temperature 97.8 F Pulse Rate 98 H 96 H 101 H Respiratory Rate 19 Blood Pressure 140/69 Blood Pressure [Right Arm] 132/67 145/65 H Pulse Oximetry 98 98 99 11/22/19 14:00 Temperature Pulse Rate 94 H Respiratory Rate Blood Pressure Blood Pressure [Right Arm] 126/84 Pulse Oximetry 95 Oxygen Delivery Method Room Air Objective Imaging CT scan - abdomen: My impression: Dilated loops of bowel may be related to adhesions to the surgical site in the right lower quadrant. There could also be an internal hernia. The patient has been having diarrhea and nausea, which may be explained by the patchy colitis, which may be C diff. C diff test is pending Radiologist's impression: [address] [address] [address] Scan Report Signed Patient: Ena Benitez DMR#: [id number] : 6Acct:[id number] Age/Sex: 64 / FDate of Service: 11/22/19 Loc: ED Accession Number: [id number] Procedure: CT abdomen pelvis w con Ordering Provider: Itzel Tinajero HANDLE MAKER- PROCEDURE: CT ABDOMEN PELVIS W CON INDICATIONS: post op, elevated wbc TECHNIQUE: After the administration of oral and intravenous contrast, 5 mm thick sections acquired from the diaphragms to the symphysis. 5 mm thick coronal and sagittal reformats were performed. For radiation dose reduction, the following was used: automated exposure control, adjustment of mA and/or kV according to patient size. COMPARISON: [facility], CT, CT ABDOMEN PELVIS W CON, 11/19/2019, 15:34. [facility], CT, CT ABDOMEN PELVIS W CON, 11/13/2019, 11:49. FINDINGS: Image quality: Diagnostic. ABDOMEN: Lung bases: Lung there has been interval development of a trace right-sided pleural effusion with associated mild atelectasis. There is also mild atelectasis invol ving the posterior left lower lobe. No significant left-sided pleural effusion is identified. Heart size is normal. Solid organs: The liver is normal in size. The gallbladder is within normal l imits without significant gallbladder wall inflammation. The portal vein is patent. There is no intrahepatic or extrahepatic biliary dilatation. The spleen is unremarkable. The pancreas and adrenals are within normal limits. Both kidneys are normal in size. Small simple appearing renal cysts appear to be present. There is no hydronephrosis. Peritoneum and bowel: The stomach is within normal limits. Prominent dilatation of numerous small bowel loops throughout the abdomen is identified. These dilated small bowel loops are seen within the left hemiabdomen, predominantly. There is a t ransition point identified within the right lower quadrant where the ileal bowel loops are decompressed with respect to the more proximal dilated small bowel loops. Swirling of bowel loops within this region as well as the vascular structures is identified. Air and stool are identified within the colon. There is prominent thickening identified involving the cecum and the ascending colon. There is borderline wall thickening involving the remainder portions of the colon. However, the rest of the colon is noted to be decompressed with additional areas of the wall thickening, similar to the prior study. Edema within fissure is present. There is a small amount of free fluid identified within the abdomen. No definite free air is evident. No loculated fluid collections are appreciated. Nodes and vessels: No retroperitoneal or mesenteric adenopathy. Aorta and inferior vena cava are normal in caliber. Bones: No ventral hernias. PELVIS: Genitourinary: Bladder wall thickness is normal. The uterus and ovaries are not enlarged or adequately characterized on CT. Miscellaneous: No inguinal hernias or adenopathy. A small amount of free fluid is seen within the pelvis. There is no drainable or loculated fluid collection. Bones: No suspicious bony lesions. No vertebral body compression fractures. IMPRESSION: 1. Small bowel obstruction with the transition identified within the right lower quadrant. Swirling bowel loops within this region does raise suspicion for a potential internal hernia as the etiology. However, adhesions could also result in this appearance and clinical correlation is recommended. 2. Multifocal areas of wall thickening involving the colon are similar to the previous exam and likely represents either an infectious or inflammatory colitis and clinical correlation is advised. 3. Interval development of mild ascites is probably small bowel obstruction. There is no abscess or drainable fluid collection. 4. Trace right-sided pleural effusion with associated atelectasis. There is also minimal left basilar atelectasis. Borderline prominent lymph nodes are seen within the mesentery, best appreciated within the ileocolic region. Dictated by: Mainor Vigil M.D. on 11/22/2019 at 12:14 Approved by: Mainor Vigil M.D. on 11/22/2019 at 12:20 Labs Result Diagrams: 11/22/19 11:50 11/22/19 11:50 Labs: Laboratory Results - last 24 hr 11/22/19 11/22/19 11/22/19 11:50 11:50 12:35 WBC 21.4 H RBC 3.82 L Hgb 11.9 L Hct 34.7 L MCV 90.7 MCH 31.0 MCHC 34.2 RDW 12.9 Plt Count 536 H Neut % (Auto) 91.8 H Lymph % (Auto) 3.7 L [place] % (Auto) 4.3 Eos % (Auto) 0.0 L Baso % (Auto) 0.2 Neut # (Auto) 95464 H Lymph # (Auto) 800 L [place] # (Auto) 900 Eos # (Auto) 0 Baso # (Auto) 0 Sodium 128 L Potassium 3.3 L Chloride 91 L Carbon Dioxide 29 BUN 6 L Creatinine 0.42 L Estimated GFR > 60.0 BUN/Creatinine Ratio 14.3 Glucose 129 H Lactate 1.4 Calcium 8.2 L Total Bilirubin 0.5 AST 42 H ALT 37 H Alkaline Phosphatase 108 Total Protein 6.1 L Albumin 3.1 L Globulin 3.0 Albumin/Globulin Ratio 1.0 Amylase 75 Lipase 103 D COVID-19 PCR 11/22/19 11/22/19 12:51 13:18 WBC RBC Hgb Hct MCV MCH MCHC RDW Plt Count Neut % (Auto) Lymph % (Auto) [place] % (Auto) Eos % (Auto) Baso % (Auto) Neut # (Auto) Lymph # (Auto) [place] # (Auto) Eos # (Auto) Baso # (Auto) Sodium Potassium Chloride Carbon Dioxide BUN Creatinine Estimated GFR BUN/Creatinine Ratio Glucose Lactate Calcium Total Bilirubin AST ALT Alkaline Phosphatase Total Protein Albumin Globulin Albumin/Globulin Ratio Amylase Lipase COVID-19 PCR Cancelled Negative Assessment & Plan Assessment and plan (1) Small bowel obstruction: Current visit: Yes Status: Acute (2) Diarrhea: Current visit: No Status: Acute (3) Leukocytosis: Current visit: No Status: Acute (4) Nausea: Current visit: No Status: Acute (5) Anxiety: Current visit: No Status: Acute Assessment & Plan narrative: This is a 64-year-old woman with nausea and diarrhea 1 week after an appendectomy for perforated acute appendicitis. Her CT scan is consistent with a small-bowel obstruction which may be due to adhesions, or an internal hernia. There is not a clear explanation for her white blood cell count being elevated, but urine culture and stool culture for C diff for pending. Have recommended the patient that we go to the operating room in order to take a look, to rule out internal hernia. She refuses the OR at this time, and ?just wants antibiotics.? I explained to her that if she has an internal hernia part of her bowel may be twisted and may end up becoming ischemic or , which would result in making her much sicker and require a bigger operation. She again declines surgery at this time and request antibiotic the rapy only. I have explained to her that I do not know what we are treating with antibiotics, although there are some cultures pending. At this point I will put her on broad-spectrum antibiotics with coverage for C diff, and follow up the culture results. We will get CRP and procalcitonin, and repeat basic labs this evening. 55 minutes were spent in chart review, imaging and lab review, and face to face with the patient. More than 50% of the time was spent in counseling and co- ordination of care regarding potential etiologies of her elevated white blood cell count, nausea, and diarrhea. Potential risk and benefit of going to the operating room verses waiting on lab results and starting antibiotics. Plan: NPO except for water and ice chips IV fluid Antiemetics repeat labs this PM CPR and procalcitonin now C diff, UA and blood cultures broad spectrum antibiotics with coverage for C diff NGT if intractable vomiting Quality VTE Deep Vein Thrombosis/Pulmonary Embolism Present on Admission: No
[2019-11-22 16:04] LABS: Procalcitonin 0.29 ng/mL (<0.5)
[2019-11-22 16:05] LABS: C-Reactive Protein Quant 25.9 mg/dL (<1.0)
[2019-11-22] MEDS: metroNIDAZOLE 500 MG/100 ML PIGGYBACK 100 MG IV (16:48)
[2019-11-22] MEDS: SODIUM CHLORIDE 0.9% 1,000 ML 100 ML IV ×2 (16:48→20:58)
[2019-11-22 17:08] LABS: Clostridium Difficile Tox PCR Negative for C. diff
[2019-11-22] MEDS: KCL 40 MEQ IN NS 1,000 ML 100 MEQ IV (19:48)
[2019-11-22 20:29] LABS: Add Manual Diff / Slide Review NO; Basophils Absolute Auto 0 /uL (0-100); Basophils Percent Auto 0.2 % (0-2); Eosinophils Absolute Auto 0 /uL (0-450); Hematocrit 34.1 % (36-46); Hemoglobin 11.5 g/dL (12.0-16.0); Lymphocytes Absolute Auto 1000 /uL (1100-4500); Lymphocytes Percent Auto 4.7 % (25-40); Mean Corpuscular HGB Conc 33.7 % (30-36); Mean Corpuscular Hemoglobin 30.8 PG (26-34); Mean Corpuscular Volume 91.2 fL (80-100); Monocytes Absolute Auto 1000 /uL (0-900); Monocytes Percent Auto 4.7 % (3-14); Neutrophils Absolute Auto 18500 /uL (1500-7000); Neutrophils Percent Auto 90.4 % (50-75); Platelet Count 540 X10^3/uL (150-400); Red Blood Cell Count 3.74 X10^6/uL (4.0-5.2); Red Cell Distribution Width 13.3 % (11.6-14.8); White Blood Cell Count 20.4 X10^3/uL (4.5-11.0)
[2019-11-22 20:42] LABS: BUN Creatinine Ratio 12.2 (6-22); Blood Urea Nitrogen 6 mg/dL (7-17); Calcium 7.7 mg/dL (8.4-10.2); Carbon Dioxide 28 mmol/L (22-32); Chloride 95 mmol/L (98-107); Estimated Glomerular Filt Rate > 60.0 mL/min (>60); Glucose 108 mg/dL (80-110); HEMOLYSIS < 15 (0-50); Magnesium 2.3 mg/dL (1.6-2.3); Potassium 4.2 mmol/L (3.4-5.1); Sodium 129 mmol/L (137-145)
[2019-11-22] MEDS: ACETAMINOPHEN 325 MG TABLET 650 MG PO (20:44)
[2019-11-23] MEDS: metroNIDAZOLE 500 MG/100 ML PIGGYBACK 100 MG IV ×3 (00:37→17:27)
[2019-11-23] MEDS: ACETAMINOPHEN 325 MG TABLET 650 MG PO (02:07)
[2019-11-23] MEDS: PIPERACILLIN-TAZO 3.375 GM/50 ML FROZ.PIGGY IV ×4 (02:07→21:28)
[2019-11-23 05:31] VITALS: BP 128/70; PULSE 89; RESP 16; TEMP 36.4; O2SAT 97
[2019-11-23 05:34] LABS: Add Manual Diff / Slide Review NO; Basophils Absolute Auto 0 /uL (0-100); Basophils Percent Auto 0.1 % (0-2); Eosinophils Absolute Auto 0 /uL (0-450); Eosinophils Percent Auto 0.1 % (2-4); Hematocrit 32.1 % (36-46); Hemoglobin 10.8 g/dL (12.0-16.0); Lymphocytes Absolute Auto 700 /uL (1100-4500); Lymphocytes Percent Auto 3.7 % (25-40); Mean Corpuscular HGB Conc 33.5 % (30-36); Mean Corpuscular Hemoglobin 30.5 PG (26-34); Mean Corpuscular Volume 90.9 fL (80-100); Monocytes Absolute Auto 900 /uL (0-900); Monocytes Percent Auto 4.8 % (3-14); Neutrophils Absolute Auto 16900 /uL (1500-7000); Neutrophils Percent Auto 91.3 % (50-75); Platelet Count 486 X10^3/uL (150-400); Red Blood Cell Count 3.53 X10^6/uL (4.0-5.2); White Blood Cell Count 18.5 X10^3/uL (4.5-11.0)
[2019-11-23 05:40] LABS: BUN Creatinine Ratio 13.5 (6-22); Blood Urea Nitrogen 7 mg/dL (7-17); Calcium 7.5 mg/dL (8.4-10.2); Carbon Dioxide 25 mmol/L (22-32); Chloride 94 mmol/L (98-107); Estimated Glomerular Filt Rate > 60.0 mL/min (>60); Glucose 105 mg/dL (80-110); HEMOLYSIS < 15 (0-50); Magnesium 2.1 mg/dL (1.6-2.3); Potassium 3.5 mmol/L (3.4-5.1); Sodium 127 mmol/L (137-145)
--- NOTE | 2019-11-23 07:00 | DI.RAD.S_ITS ---
PROCEDURE: XR ABDOMEN 1V INDICATIONS: interval change in PSBO TECHNIQUE: One view of the abdomen acquired. COMPARISON: [facility], CT, CT ABDOMEN PELVIS W CON, 11/22/2019, 12:47. FINDINGS: Surgical changes and devices: None. Bowel: Continued small bowel obstruction. Soft tissues: No suspicious abdominal calcifications. Visualized solid organ contours appear normal in size. Right basilar atelectasis and pleural fluid with elevation of right hemidiaphragm. Bones: No suspicious bony lesions. IMPRESSION: Continued small bowel obstruction pattern. No evidence of perforation. Elevation of right hemidiaphragm with right basilar atelectasis and pleural fluid. Dictated by: Richard Garcia M.D. on 11/23/2019 at 8:31 Approved by: Richard Garcia M.D. on 11/23/2019 at 8:33
[2019-11-23 08:44] VITALS: BP 106/60; PULSE 81; RESP 17; TEMP 36.4; O2SAT 96
[2019-11-23] MEDS: SODIUM CHLORIDE 0.9% 1,000 ML 100 ML IV ×2 (09:33→21:36)
--- NOTE | 2019-11-23 09:40 | DI.RAD.S_ITS ---
PROCEDURE: FL SMALL BOWEL FOLLOW THROUGH INDICATIONS: small bowel obstruction. Perform with gastrografin COMPARISON: [facility], CT, CT ABDOMEN PELVIS W CON, 11/22/2019, 12:47. FINDINGS: KUB: Moderately distended small bowel loops. Small bowel: There is delayed transit barium through the small bowel. Small bowel loops are moderately distended. There is passage of contrast into the colon. IMPRESSION: Moderate partial small bowel obstruction. Dictated by: Yanely Darling M.D. on 11/27/2019 at 13:30 Approved by: Yanely Darling M.D. on 11/27/2019 at 13:31
--- NOTE | 2019-11-23 10:09 | CM.DANOTE ---
DCP: Case received, EMR reviewed and met with patient. Introduced self and role. Was able to meet with patient in her room and obtain information from patient regarding her baseline activity level, as well as health information. DCP assessment completed with information currently available. Patient is a 64 year old female who admitted yesterday afternoon to the care of the hospitalist team. PCP: Dr. Gómez. Payer: confirmed: [facility]. Patient came to the hospital via private vehicle secondary to abdominal discomfort. Patient had been here at the hospital recently for an acute appendicitis, perforated appendix. Patient currently holds diagnosis of small bowel obstruction, and is being ruled out for C-diff. Met with patient in her room. She is alert and oriented, and independent at baseline. She mentioned that she had gone home with drains after recent surgery, and was able to manage. She resides in [place] by herself, has a daughter that lives in [place]. She also has fiends that can assist her if needed. P: DCP to continue to follow and be available for any needs. She should be able to return home when she is medically stable. It is unclear at this time if patient will need surgery. Jazmin Matos RN/Scale Tester
--- NOTE | 2019-11-23 10:48 | PC.NURSE ---
Day shift: Pt left unit at approx 1030 for [facility]. Taken in her WC by [facility] person. They have SNF packet and Pt has all personal belongings. Report given via phone to [facility] via telephone.
--- NOTE | 2019-11-23 11:08 | P.PN_ITS ---
Subjective Subjective Date Patient Seen: 11/23/19 Time Patient Seen: 11:08 Interval history: Bowel movement x1 and emesis overnight. Feels bloated but denies nausea at this time. No fever. Exam Vital Signs (past 8 hours): - 11/23/19 05:31 11/23/19 08:44 Temperature 97.6 F 97.6 F Pulse Rate 89 81 Respiratory Rate 16 17 Blood Pressure 128/70 106/60 Pulse Oximetry 97 96 Oxygen Delivery Method Room Air Oxygen Flow Rate 0 Narrative Exam Narrative: General adult female alert oriented no acute distress Chest nonlabored respirations Abdomen mildly distended nontender incisions clean dry intact Objective Labs Result Diagrams: 11/23/19 05:17 11/23/19 05:17 Labs: Laboratory Results - last 24 hr 11/22/19 11/22/19 11/22/19 11:50 11:50 11:50 WBC 21.4 H RBC 3.82 L Hgb 11.9 L Hct 34.7 L MCV 90.7 MCH 31.0 MCHC 34.2 RDW 12.9 Plt Count 536 H Neut % (Auto) 91.8 H Lymph % (Auto) 3.7 L [place] % (Auto) 4.3 Eos % (Auto) 0.0 L Baso % (Auto) 0.2 Neut # (Auto) 11587 H Lymph # (Auto) 800 L [place] # (Auto) 900 Eos # (Auto) 0 Baso # (Auto) 0 Sodium 128 L Potassium 3.3 L Chloride 91 L Carbon Dioxide 29 BUN 6 L Creatinine 0.42 L Estimated GFR > 60.0 BUN/Creatinine Ratio 14.3 Glucose 129 H Lactate Calcium 8.2 L Magnesium Total Bilirubin 0.5 AST 42 H ALT 37 H Alkaline Phosphatase 108 C-Reactive Protein 25.9 H Total Protein 6.1 L Albumin 3.1 L Globulin 3.0 Albumin/Globulin Ratio 1.0 Amylase 75 Lipase 103 D Procalcitonin C. difficile Tox (PCR) COVID-19 PCR 11/22/19 11/22/19 11/22/19 12:35 12:51 13:18 WBC RBC Hgb Hct MCV MCH MCHC RDW Plt Count Neut % (Auto) Lymph % (Auto) [place] % (Auto) Eos % (Auto) Baso % (Auto) Neut # (Auto) Lymph # (Auto) [place] # (Auto) Eos # (Auto) Baso # (Auto) Sodium Potassium Chloride Carbon Dioxide BUN Creatinine Estimated GFR BUN/Creatinine Ratio Glucose Lactate 1.4 Calcium Magnesium Total Bilirubin AST ALT Alkaline Phosphatase C-Reactive Protein Total Protein Albumin Globulin Albumin/Globulin Ratio Amylase Lipase Procalcitonin C. difficile Tox (PCR) COVID-19 PCR Cancelled Negative 11/22/19 11/22/19 11/22/19 15:29 16:11 20:20 WBC 20.4 H RBC 3.74 L Hgb 11.5 L Hct 34.1 L MCV 91.2 MCH 30.8 MCHC 33.7 RDW 13.3 Plt Count 540 H Neut % (Auto) 90.4 H Lymph % (Auto) 4.7 L [place] % (Auto) 4.7 Eos % (Auto) 0.0 L Baso % (Auto) 0.2 Neut # (Auto) 17208 H Lymph # (Auto) 1000 L [place] # (Auto) 1000 H Eos # (Auto) 0 Baso # (Auto) 0 Sodium Potassium Chloride Carbon Dioxide BUN Creatinine Estimated GFR BUN/Creatinine Ratio Glucose Lactate Calcium Magnesium Total Bilirubin AST ALT Alkaline Phosphatase C-Reactive Protein Total Protein Albumin Globulin Albumin/Globulin Ratio Amylase Lipase Procalcitonin 0.29 C. difficile Tox (PCR) Negative for c. diff COVID-19 PCR 11/22/19 11/23/19 11/23/19 20:20 05:17 05:17 WBC 18.5 H RBC 3.53 L Hgb 10.8 L Hct 32.1 L MCV 90.9 MCH 30.5 MCHC 33.5 RDW 13.0 Plt Count 486 H Neut % (Auto) 91.3 H Lymph % (Auto) 3.7 L [place] % (Auto) 4.8 Eos % (Auto) 0.1 L Baso % (Auto) 0.1 Neut # (Auto) 59615 H Lymph # (Auto) 700 L [place] # (Auto) 900 Eos # (Auto) 0 Baso # (Auto) 0 Sodium 129 L 127 L Potassium 4.2 3.5 Chloride 95 L 94 L Carbon Dioxide 28 25 BUN 6 L 7 Creatinine 0.49 L 0.52 Estimated GFR > 60.0 > 60.0 BUN/Creatinine Ratio 12.2 13.5 Glucose 108 105 Lactate Calcium 7.7 L 7.5 L Magnesium 2.3 2.1 Total Bilirubin AST ALT Alkaline Phosphatase C-Reactive Protein Total Protein Albumin Globulin Albumin/Globulin Ratio Amylase Lipase Procalcitonin C. difficile Tox (PCR) COVID-19 PCR Assessment & Plan Assessment & Plan narrative: 64-year-old female postoperative day 9 status post laparoscopic appendectomy admitted with a possible bowel obstruction. I reviewed her workup including CT abdomen pelvis and laboratory studies. CTs suggestive of small-bowel obstruction demonstrates dilated loops of small bowel and possible transition point in the right lower quadrant. Laboratory studies are significant for a white blood cell count of 19 today which is down from 21 admission additionally procalcitonin is normal she has been afebrile. I suspect she has a partial small bowel obstruction given her CT findings abdominal distension and emesis. -Small-bowel follow-through today -NPO/IVF -NGT if continued emesis -Continue Antibiotics -SCDs and Heparin Quality VTE Deep Vein Thrombosis/Pulmonary Embolism Present on Admission: No
[2019-11-23] MEDS: ONDANSETRON 4 MG/2 ML INJ IV ×2 (11:47→19:59)
--- NOTE | 2019-11-23 12:41 | PC.NURSE ---
Day shift: Pt reported having nausea after drinking the fluid for the imaging. Gave IV Zofran and approx 15 minutes later Pt had approx 300ml of emisis. Pt also had another loose stool. G[employer]OT[employer] PACKER is helping Pt get cleaned up. Will continue to monitor.
[2019-11-23 12:50] VITALS: BP 126/59; PULSE 83; RESP 18; TEMP 36.6; O2SAT 97
[2019-11-23 15:36] VITALS: BP 123/67; PULSE 83; RESP 16; TEMP 36.9; O2SAT 96
--- NOTE | 2019-11-23 18:06 | PC.NURSE ---
Addendum entered by Nette Potter R.N. 11/23/19 21:41: Pt continues w/bouts of nausea & emesis. Med @ 2100 w/ zofran & ketorlac as per orderfs w/ goos relief. Pt able to sleep for a short time. IVF continue as per orders. SCD in place. Call light w/in reach, bed alarm on for pt safety. Continue w/plan of care. Original Note: Pt resting quietly at this time. Continues w/ occasional nausea. Had 300cc emesis Refusing zofran at this time. IV NS @ 100cc/hr infusing into the LFA via pump w/o incidence. Call light w/in reach, bed alarm on for pt safety.
[2019-11-23 19:15] VITALS: BP 126/64; PULSE 90; RESP 17; TEMP 37.3; O2SAT 96
[2019-11-23] MEDS: KETOROLAC 15 MG/ML VIAL IV (19:59)
[2019-11-23] MEDS: HEPARIN 5,000 UNIT/ML VIAL 5000 UNIT SUBCUT (20:24)
[2019-11-24] MEDS: metroNIDAZOLE 500 MG/100 ML PIGGYBACK 100 MG IV ×3 (00:15→17:10)
[2019-11-24 01:00] VITALS: BP 125/63; PULSE 88; RESP 18; TEMP 37.3; O2SAT 95
[2019-11-24] MEDS: PIPERACILLIN-TAZO 3.375 GM/50 ML FROZ.PIGGY IV ×4 (01:58→20:18)
[2019-11-24 05:00] VITALS: BP 128/65; PULSE 85; RESP 18; TEMP 37; O2SAT 94
[2019-11-24 05:48] LABS: Add Manual Diff / Slide Review NO; Basophils Absolute Auto 0 /uL (0-100); Basophils Percent Auto 0.1 % (0-2); Eosinophils Absolute Auto 0 /uL (0-450); Eosinophils Percent Auto 0.1 % (2-4); Hematocrit 29.8 % (36-46); Hemoglobin 10.4 g/dL (12.0-16.0); Lymphocytes Absolute Auto 600 /uL (1100-4500); Lymphocytes Percent Auto 4.3 % (25-40); Mean Corpuscular Hemoglobin 31.7 PG (26-34); Mean Corpuscular Volume 90.7 fL (80-100); Monocytes Absolute Auto 900 /uL (0-900); Neutrophils Absolute Auto 13200 /uL (1500-7000); Neutrophils Percent Auto 89.5 % (50-75); Platelet Count 537 X10^3/uL (150-400); Red Blood Cell Count 3.29 X10^6/uL (4.0-5.2); Red Cell Distribution Width 13.1 % (11.6-14.8); White Blood Cell Count 14.8 X10^3/uL (4.5-11.0)
[2019-11-24 05:55] LABS: BUN Creatinine Ratio 21.4 (6-22); Blood Urea Nitrogen 12 mg/dL (7-17); Calcium 7.8 mg/dL (8.4-10.2); Carbon Dioxide 25 mmol/L (22-32); Chloride 96 mmol/L (98-107); Estimated Glomerular Filt Rate > 60.0 mL/min (>60); Glucose 85 mg/dL (80-110); HEMOLYSIS < 15 (0-50); Magnesium 2.3 mg/dL (1.6-2.3); Potassium 3.9 mmol/L (3.4-5.1); Sodium 130 mmol/L (137-145)
--- NOTE | 2019-11-24 07:20 | DI.RAD.S_ITS ---
PROCEDURE: XR ABDOMEN 1V INDICATIONS: SP Small bowel follow through TECHNIQUE: One view of the abdomen acquired. COMPARISON: [facility], [place], [place] SMALL BOWEL FOLLOW THROUGH, 11/23/2019, 9:40. [facility], CR, XR ACUTE ABDOMEN SERIES, 11/22/2019, 11:45. [facility], CT, CT ABDOMEN PELVIS W CON, 11/22/2019, 12:47. [facility], CR, XR ABDOMEN 1V, 11/23/2019, 7:08. FINDINGS: Surgical changes and devices: None. Bowel: Small bowel loops are distended measuring up to 4.2 cm. Oral contrast is in colon. There is gas in the rectum. The findings suggest partial small bowel portion. Soft tissues: No suspicious abdominal calcifications. Visualized solid organ contours appear normal in size. Bones: No suspicious bony lesions. IMPRESSION: Partial small bowel obstruction. Dictated by: Bernie Torres M.D. on 11/24/2019 at 8:18 Approved by: Bernie Torres M.D. on 11/24/2019 at 8:22
[2019-11-24 08:44] VITALS: BP 125/64; PULSE 81; RESP 17; TEMP 37.3; O2SAT 96
--- NOTE | 2019-11-24 08:45 | PM.PN.1 ---
Subjective Subjective Date Patient Seen: 11/24/19 Time Patient Seen: 08:45 Interval history: Feels much better than yesterday. Had a small-bowel follow-through done yesterday had a bout of emesis associated with contrast ingestion but none since. Has had multiple bowel movements overnight. Hungry, feels less bloated than yesterday. Exam Vital Signs (past 8 hours): - 11/24/19 01:00 11/24/19 05:00 11/24/19 08:44 Temperature 99.2 F 98.6 F 99.2 F Pulse Rate 88 85 81 Respiratory Rate 18 18 17 Blood Pressure 125/63 128/65 125/64 Pulse Oximetry 95 94 96 Oxygen Delivery Method Room Air Oxygen Flow Rate 0 Narrative Exam Narrative: General adult female alert oriented no acute distress Chest nonlabored respirations Abdomen soft nontender mildly distended Objective Labs Result Diagrams: 11/24/19 05:30 11/24/19 05:30 Labs: Laboratory Results - last 24 hr 11/24/19 11/24/19 05:30 05:30 WBC 14.8 H RBC 3.29 L Hgb 10.4 L Hct 29.8 L MCV 90.7 MCH 31.7 MCHC 35.0 RDW 13.1 Plt Count 537 H Neut % (Auto) 89.5 H Lymph % (Auto) 4.3 L [place] % (Auto) 6.0 Eos % (Auto) 0.1 L Baso % (Auto) 0.1 Neut # (Auto) 70175 H Lymph # (Auto) 600 L [place] # (Auto) 900 Eos # (Auto) 0 Baso # (Auto) 0 Sodium 130 L Potassium 3.9 Chloride 96 L Carbon Dioxide 25 BUN 12 Creatinine 0.56 Estimated GFR > 60.0 BUN/Creatinine Ratio 21.4 Glucose 85 Calcium 7.8 L Magnesium 2.3 Assessment & Plan Assessment & Plan narrative: 64-year-old female postop day 10 status post laparoscopic appendectomy admitted with a partial small-bowel obstruction vs ileus which is resolving. Reviewed her small-bowel follow-through and abdominal x-ray this morning demonstrates contrast within the colon as well and some dilated loops of small bowel. She remains afebrile without abdominal pain and down trending white blood cell count. -trial of clear liquid diet -out of bed to chair ambulate -continue antibiotics -SCDs and heparin Quality VTE Deep Vein Thrombosis/Pulmonary Embolism Present on Admission: No
[2019-11-24] MEDS: HEPARIN 5,000 UNIT/ML VIAL 5000 UNIT SUBCUT ×2 (10:03→20:18)
--- NOTE | 2019-11-24 13:03 | PC.NURSE ---
Patient denies nausea or abd pain today. Reports bloating, abd soft and non-tender. Having freq watery green stools. Was advanced to clear liquids today, tolerating well. Ambulated several loops in the [place] indep. Set up assist to shower. Has been in the recliner all day since this morning.
[2019-11-24 13:07] VITALS: BP 122/60; PULSE 83; RESP 17; TEMP 36.9; O2SAT 97
[2019-11-24] MEDS: SODIUM CHLORIDE 0.9% 1,000 ML 100 ML IV (13:13)
[2019-11-24] MEDS: ACETAMINOPHEN 325 MG TABLET 650 MG PO ×2 (14:32→20:22)
[2019-11-24 16:00] VITALS: PULSE 85; RESP 20; TEMP 37; O2SAT 97
[2019-11-25] VITALS (7 sets, daily range): BP systolic 117–129; BP diastolic 59–67; PULSE 74–92; RESP 16–18; TEMP 36.6–37.4; O2SAT 94–97
[2019-11-25] MEDS: metroNIDAZOLE 500 MG/100 ML PIGGYBACK 100 MG IV ×4 (00:27→23:31)
[2019-11-25] MEDS: PIPERACILLIN-TAZO 3.375 GM/50 ML FROZ.PIGGY IV ×4 (01:45→20:34)
[2019-11-25] MEDS: SODIUM CHLORIDE 0.9% 1,000 ML 100 ML IV (02:44)
[2019-11-25 05:13] LABS: Add Manual Diff / Slide Review NO; Basophils Absolute Auto 0 /uL (0-100); Basophils Percent Auto 0.2 % (0-2); Eosinophils Absolute Auto 0 /uL (0-450); Eosinophils Percent Auto 0.3 % (2-4); Hemoglobin 10.8 g/dL (12.0-16.0); Lymphocytes Absolute Auto 600 /uL (1100-4500); Lymphocytes Percent Auto 5.1 % (25-40); Mean Corpuscular HGB Conc 34.7 % (30-36); Mean Corpuscular Hemoglobin 31.3 PG (26-34); Mean Corpuscular Volume 90.3 fL (80-100); Monocytes Absolute Auto 800 /uL (0-900); Monocytes Percent Auto 6.8 % (3-14); Neutrophils Absolute Auto 9900 /uL (1500-7000); Neutrophils Percent Auto 87.6 % (50-75); Platelet Count 590 X10^3/uL (150-400); Red Blood Cell Count 3.43 X10^6/uL (4.0-5.2); White Blood Cell Count 11.3 X10^3/uL (4.5-11.0)
[2019-11-25 05:26] LABS: BUN Creatinine Ratio 10.6 (6-22); Blood Urea Nitrogen 5 mg/dL (7-17); Calcium 7.3 mg/dL (8.4-10.2); Carbon Dioxide 29 mmol/L (22-32); Chloride 95 mmol/L (98-107); Estimated Glomerular Filt Rate > 60.0 mL/min (>60); Glucose 110 mg/dL (80-110); HEMOLYSIS < 15 (0-50); Magnesium 2.1 mg/dL (1.6-2.3); Potassium 3.1 mmol/L (3.4-5.1); Sodium 128 mmol/L (137-145)
--- NOTE | 2019-11-25 05:50 | PC.NURSE ---
Pt is AxOx4, VSS, tolerating room air. Denies any nausea or stomach pain throughout shift. Several episodes of diarrhea however; barrier cream applied for some macerating skin. NS@100mL/hr
--- NOTE | 2019-11-25 07:00 | DI.RAD.S_ITS ---
PROCEDURE: XR KUB INDICATIONS: interval improvement ileus TECHNIQUE: One view of the abdomen acquired. COMPARISON: [facility], CR, XR ABDOMEN 1V, 11/23/2019, 7:08. [facility], CR, XR ABDOMEN 1V, 11/24/2019, 7:23. [facility], CR, XR ACUTE ABDOMEN SERIES, 11/22/2019, 11:45. FINDINGS: Surgical changes and devices: None. Bowel: Diffuse dilated bowel loops are again noted, with minimal change. There is interval passage of oral contrast material previously seen in the colon. Soft tissues: No suspicious abdominal calcifications. Visualized solid organ contours appear normal in size. Bones: No suspicious bony lesions. IMPRESSION: No definite change in diffuse dilated small bowel loops. Interval passage of oral contrast material previously seen in the colon since 11/24/19. Dictated by: Elmer Prado M.D. on 11/25/2019 at 9:16 Approved by: Elmer Prado M.D. on 11/25/2019 at 9:19
[2019-11-25] MEDS: POTASSIUM CHLORIDE 20 MEQ TAB 40 MEQ PO (08:58)
[2019-11-25] MEDS: HEPARIN 5,000 UNIT/ML VIAL 5000 UNIT SUBCUT ×2 (09:01→20:34)
[2019-11-25] MEDS: KCL 40 MEQ IN NS 1,000 ML 100 MEQ IV ×2 (10:40→22:04)
[2019-11-25] MEDS: LACTOBACILLUS ACIDOPHILUS TABLET 1 EACH PO ×2 (10:40→18:46)
--- NOTE | 2019-11-25 12:52 | PC.NURSE ---
Addendum entered by Ofe Reeves R.N. 11/25/19 14:54: Pt stated Zofran IV prn given earlier at 1320 in just an hour later started to take effect. Pt update on need for repeat Potassium level and scheduled Reglan added. Original Note: Day Shift- Pt stated mild nausea this AM throughout shift. Minimal PO intake. Offered and given lemon palomo tea. OOB with SBA to BR, pt has had 3 small liquid loose BM's thus far. Denies abd pain, states mild bloating, no tenderness. Ambulating in room, encouraged in hallway ambulation at least 3 times today. Pt stated feeling better yesterday and was able to walk in halls 3 times yesterday. Support and encouragement provided. Pt denies belching, dry heaving, emesis. Pt took pills whole with water. Able to make needs known using call light.
[2019-11-25] MEDS: ONDANSETRON 4 MG/2 ML INJ IV ×3 (13:18→22:04)
[2019-11-25] MEDS: SODIUM CHLORIDE 0.9% FLUSH 10 ML IV (13:18)
[2019-11-25] MEDS: METOCLOPRAMIDE 10 MG/2 ML INJ 5 MG IV ×3 (14:49→23:31)
[2019-11-25 15:12] LABS: HEMOLYSIS < 15 (0-50); Potassium 3.4 mmol/L (3.4-5.1)
--- NOTE | 2019-11-25 15:45 | PM.PN.1 ---
Subjective Subjective Date Patient Seen: 11/25/19 Time Patient Seen: 07:45 Interval history: Pt feeling worse again this morning. C/o nausea, no vomiting. Continues to pass liquid stool. Exam Vital Signs (past 8 hours): - 11/25/19 08:00 11/25/19 12:00 11/25/19 15:25 Temperature 98.4 F 98.8 F 97.9 F Pulse Rate 80 84 84 Respiratory Rate 18 18 16 Blood Pressure 129/62 126/67 124/66 Pulse Oximetry 95 94 95 Oxygen Delivery Method Room Air Oxygen Flow Rate 0 Narrative Exam Narrative: GENERAL: Alert, fatigued, uncomfortable. Appears stated age. Answers questions promptly and appropriately. Vital signs noted. HENT: Normocephalic, atraumatic. Hearing intact. Oral mucosa is pink and moist. EYES: Conjunctiva pink, sclera white, no periorbital swelling. CARDIOVASCULAR: Regular rate. No pedal edema. RESPIRATORY: Non-tachypneic, breathing comfortably on room air. GASTROINTESTINAL: Abdomen soft and mildly distended, minimally TTP, incisions c/d/i MUSCULOSKELETAL: Equal tone and mass bilaterally. SKIN: Warm, dry, soft, appropriate color for ethnicity. No other lesions, rashes, or wounds. NEURO: Alert and Oriented X 3. No gross sensory deficits, or cognitive issues. PSYCH: Appropriate affect and mood. Objective Imaging SBFT: My impression: Contrast goes through to colon; small bowel still dilated; looks like PSBO or ileus Radiologist's impression: Contrast goes through to colon; small bowel still dilated Labs Result Diagrams: 11/25/19 04:51 11/25/19 14:50 Labs: Laboratory Results - last 24 hr 11/25/19 11/25/19 11/25/19 04:51 04:51 14:50 WBC 11.3 H RBC 3.43 L Hgb 10.8 L Hct 31.0 L MCV 90.3 MCH 31.3 MCHC 34.7 RDW 13.0 Plt Count 590 H Neut % (Auto) 87.6 H Lymph % (Auto) 5.1 L [place] % (Auto) 6.8 Eos % (Auto) 0.3 L Baso % (Auto) 0.2 Neut # (Auto) 9900 H Lymph # (Auto) 600 L [place] # (Auto) 800 Eos # (Auto) 0 Baso # (Auto) 0 Sodium 128 L Potassium 3.1 L 3.4 Chloride 95 L Carbon Dioxide 29 BUN 5 L Creatinine 0.47 L Estimated GFR > 60.0 BUN/Creatinine Ratio 10.6 Glucose 110 Calcium 7.3 L Magnesium 2.1 Assessment & Plan Assessment and plan (1) Status post appendectomy: Current visit: No Status: Acute (2) Partial small bowel obstruction: Problem details: Clear liquid diet as tolerated, reglan, correct electrolytes; ambulate as tolerated; I have suspected from the day of readmission that there is an intra-abdominal infection causing the ileus such as a post appy abscess or post appy bleed. It is possible that she has an adhesive obstruction, although the contrast passes through. I have recommended laparoscopic exploration, but thus far the patient has declined. Current visit: Yes Status: Acute (3) Anxiety: Problem details: home Clonazepam Current visit: No Status: Acute (4) Nausea: Problem details: Zofran helping but nausea continues; adding reglan; likely multifactorial between PSBO, antibiotics, and hypokalemia Current visit: No Status: Acute (5) Leukocytosis: Problem details: Coming down, will DC antibiotic when it is normal Current visit: No Status: Acute (6) Diarrhea: Problem details: Continues; added probiotic Current visit: No Status: Acute (7) Hypokalemia: Problem details: Added 40 meq of K to IV fluids, and 40 PO; recheck this PM Current visit: Yes Status: Acute Assessment & Plan narrative: 64 yo woman ten days out from [facility] for acute perforated appendicitis, now with ileus, leukocytosis and PSBO. I have again recommended laparoscopic exploration and the patient continues to decline. We will continue IV antibiotics one more day, and then stop them if her WBC is normal tomorrow. We will continue clear liquid diet, IV fluids with potassium, Probiotic, add reglan, and check daily labs, correct electrolytes, and encourage ambulation. I am concerned that the patient has a developing intra abdominal abscess. We have scanned her twice since her appendectomy without a clear abscess being seen. However her leukocytosis and the gross spillage of pus and stool from her perforated appendix are concerning to me that the ileus may be caused by infection. Otherwise, she may have loops of bowel tethered into the right lower quadrant. At this point, we are seeing some slight improvement, but without knowing exactly what we are treating it is difficult to know an endpoint. Plan: as above--clear liquid diet as tolerated IV fluids electrolyte repletion ambulate IV abx PO probiotic reglan zofran PRN consider laparoscopic exploration tomorrow if patient consents Quality VTE Deep Vein Thrombosis/Pulmonary Embolism Present on Admission: No
--- NOTE | 2019-11-25 16:10 | PC.NURSE ---
1600- Patient is off floor for a stress test. Patient alert and oriented and stable at time of transfer for test.
[2019-11-26] VITALS (13 sets, daily range): BP systolic 110–132; BP diastolic 63–76; PULSE 85–103; RESP 15–89; TEMP 36.1–37.1; O2SAT 16–97; BMI 21.9
[2019-11-26] MEDS: PIPERACILLIN-TAZO 3.375 GM/50 ML FROZ.PIGGY IV ×3 (02:59→15:30)
[2019-11-26] MEDS: ONDANSETRON 4 MG/2 ML INJ IV ×2 (02:59→08:10)
[2019-11-26 05:19] LABS: Calcium 7.2 mg/dL (8.4-10.2); Carbon Dioxide 27 mmol/L (22-32); Chloride 96 mmol/L (98-107); Estimated Glomerular Filt Rate > 60.0 mL/min (>60); Glucose 115 mg/dL (80-110); HEMOLYSIS < 15 (0-50); Magnesium 1.8 mg/dL (1.6-2.3); Potassium 3.2 mmol/L (3.4-5.1); Sodium 128 mmol/L (137-145)
[2019-11-26 05:31] LABS: BUN Creatinine Ratio 4.7 (6-22); Blood Urea Nitrogen < 2 mg/dL (7-17)
[2019-11-26 05:33] LABS: Add Manual Diff / Slide Review NO; Basophils Absolute Auto 0 /uL (0-100); Basophils Percent Auto 0.2 % (0-2); Eosinophils Absolute Auto 0 /uL (0-450); Eosinophils Percent Auto 0.1 % (2-4); Hematocrit 31.8 % (36-46); Lymphocytes Absolute Auto 700 /uL (1100-4500); Lymphocytes Percent Auto 5.2 % (25-40); Mean Corpuscular HGB Conc 34.5 % (30-36); Mean Corpuscular Hemoglobin 31.1 PG (26-34); Mean Corpuscular Volume 90.2 fL (80-100); Monocytes Absolute Auto 800 /uL (0-900); Monocytes Percent Auto 5.8 % (3-14); Neutrophils Absolute Auto 12600 /uL (1500-7000); Neutrophils Percent Auto 88.7 % (50-75); Platelet Count 644 X10^3/uL (150-400); Red Blood Cell Count 3.53 X10^6/uL (4.0-5.2); Red Cell Distribution Width 13.4 % (11.6-14.8); White Blood Cell Count 14.2 X10^3/uL (4.5-11.0)
[2019-11-26] MEDS: METOCLOPRAMIDE 10 MG/2 ML INJ 5 MG IV ×3 (05:57→17:45)
[2019-11-26] MEDS: MAGNESIUM SULFATE 2 GM/50 ML PIGGYBACK IV (06:26)
[2019-11-26 06:34] LABS: Phosphorous 2.2 mg/dL (2.8-4.1)
--- NOTE | 2019-11-26 06:44 | PC.NURSE ---
Pt had several loose BMs overnight again. States she has very minimal nausea and that its much better since getting Zofran. Top 2 upper quadrants of abdomen have extremely slow bowel tones; Bottom quadrants also hypoactive
[2019-11-26 06:50] LABS: C-Reactive Protein Quant 16.7 mg/dL (<1.0)
[2019-11-26 06:52] LABS: Procalcitonin 0.16 ng/mL (<0.5)
[2019-11-26] MEDS: VANCOMYCIN 1,000 MG/200 ML PIGGYBACK 200 MG IV ×2 (08:10→18:43)
[2019-11-26] MEDS: HEPARIN 5,000 UNIT/ML VIAL 5000 UNIT SUBCUT (08:11)
[2019-11-26] MEDS: LACTOBACILLUS ACIDOPHILUS TABLET 1 EACH PO (08:23)
--- NOTE | 2019-11-26 09:10 | P.PN_ITS ---
Subjective Subjective Date Patient Seen: 11/26/19 Time Patient Seen: 14:26 Interval history: No acute events overnight. Pt feels less nauseated since scheduled reglan was started. Still passing gas and stool, still bloated. Says she feels slightly better. Exam Vital Signs (past 8 hours): - 11/26/19 03:12 Temperature 98.6 F Pulse Rate 94 H Respiratory Rate 18 Blood Pressure 124/66 Pulse Oximetry 97 Oxygen Delivery Method Room Air Oxygen Flow Rate 0 Narrative Exam Narrative: GENERAL: Alert, fatigued, uncomfortable. Appears stated age. Answers questions promptly and appropriately. Vital signs noted. HENT: Normocephalic, atraumatic. Hearing intact. Oral mucosa is pink and moist. EYES: Conjunctiva pink, sclera white, no periorbital swelling. CARDIOVASCULAR: Regular rate. No pedal edema. RESPIRATORY: Non-tachypneic, breathing comfortably on room air. GASTROINTESTINAL: Abdomen soft and mildly distended, minimally TTP, incisions c/d/i MUSCULOSKELETAL: Equal tone and mass bilaterally. SKIN: Warm, dry, soft, appropriate color for ethnicity. No other lesions, ra shes, or wounds. NEURO: Alert and Oriented X 3. No gross sensory deficits, or cognitive issues. PSYCH: Appropriate affect and mood. Objective Imaging Abdominal x-ray: My impression: Persistent SBO Radiologist's impression: Persistent SBO Labs Result Diagrams: 11/26/19 04:57 11/26/19 04:57 Labs: Laboratory Results - last 24 hr 11/25/19 11/26/19 11/26/19 14:50 04:57 04:57 WBC 14.2 H RBC 3.53 L Hgb 11.0 L Hct 31.8 L MCV 90.2 MCH 31.1 MCHC 34.5 RDW 13.4 Plt Count 644 H Neut % (Auto) 88.7 H Lymph % (Auto) 5.2 L [place] % (Auto) 5.8 Eos % (Auto) 0.1 L Baso % (Auto) 0.2 Neut # (Auto) 39851 H Lymph # (Auto) 700 L [place] # (Auto) 800 Eos # (Auto) 0 Baso # (Auto) 0 Sodium 128 L Potassium 3.4 3.2 L Chloride 96 L Carbon Dioxide 27 BUN < 2 L Creatinine 0.43 L Estimated GFR > 60.0 BUN/Creatinine Ratio 4.7 L Glucose 115 H Calcium 7.2 L Phosphorus Magnesium 1.8 C-Reactive Protein Procalcitonin 11/26/19 11/26/19 11/26/19 04:57 04:57 04:57 WBC RBC Hgb Hct MCV MCH MCHC RDW Plt Count Neut % (Auto) Lymph % (Auto) [place] % (Auto) Eos % (Auto) Baso % (Auto) Neut # (Auto) Lymph # (Auto) [place] # (Auto) Eos # (Auto) Baso # (Auto) Sodium Potassium Chloride Carbon Dioxide BUN Creatinine Estimated GFR BUN/Creatinine Ratio Glucose Calcium Phosphorus 2.2 L Magnesium C-Reactive Protein 16.7 H Procalcitonin 0.16 Assessment & Plan Assessment and plan (1) Hypokalemia: Problem details: Added 40 meq of K to IV fluids, and 40 PO; recheck this PM Current visit: Yes Status: Acute (2) Partial small bowel obstruction: Problem details: Clear liquid diet as tolerated, reglan, correct electrolytes; ambulate as tolerated; I have suspected from the day of readmission that there is an intra- abdominal infection causing the ileus such as a post appy abscess or post appy bleed. It is possible that she has an adhesive obstruction, although the contrast passes through. I have recommended laparoscopic exploration, but thus far the patient has declined. Current visit: Yes Status: Acute (3) Anxiety: Problem details: home Clonazepam Current visit: No Status: Acute (4) Fibromyalgia: Problem details: Mild, states controlled with Diet and Exercise Current visit: No Status: Acute (5) Nausea: Problem details: Zofran helping but nausea continues; adding reglan; likely multifactorial between PSBO, antibiotics, and hypokalemia Current visit: No Status: Acute (6) Leukocytosis: Problem details: Coming down, will DC antibiotic when it is normal Current visit: No Status: Acute (7) Diarrhea: Problem details: Continues; added probiotic Current visit: No Status: Acute (8) Small bowel obstruction: Current visit: Yes Status: Acute (9) Status post appendectomy: Current visit: No Status: Acute Assessment & Plan narrative: I had a long discussion with the patient this morning regarding her newly increasing white count, and the fact that she is not progressing. I again discussed with her that she likely has partial bowel obstruction and possibly an internal hernia. She may have an abscess in the abdomen, or some other intra-abdominal cause for her elevated white count the we have yet to identify. I asked my partner Dr. Henriquez to come and speak with her, as she is uncertain whether not she would be willing to go ahead to the operating room, as I have offered on several occasions, and is I have recommended. After conversation with Dr. Henriquez, she has decided to agree to go ahead with diagnostic laparoscopy. This may result in laparotomy, or small- bowel resection. I have discussed this with the patient, and I discussed with her sister at the patient's request. Right now will keep her NPO, correct her electrolytes, request a PICC line and TPN to be started for her, and plan on OR as soon as time in the operating room is available, which will probably be late this evening. Plan: As above Correct electrolytes, continue antibiotics, NPO, consent for surgery, PICC line and TPN Rapid COVID-19 test test COVID-19 COVID-19 status: Result pending Time Spent With Patient Time with patient: 25 - 35 minutes Quality VTE Deep Vein Thrombosis/Pulmonary Embolism Present on Admission: No
[2019-11-26] MEDS: POTASSIUM CHLORIDE 40 MEQ in SODIUM CHLORIDE 0.9% 500 ML 130 ML IV (09:27)
--- NOTE | 2019-11-26 11:39 | PC.NURSE ---
Addendum entered by Ofe Reeves R.N. 11/26/19 12:06: COVID-19 result Negative, pt taken out of Isolation at 1205. Original Note: Day Shift- Pt placed in Isolation precautions for rule out COVID-19 prior to surgery scheduled for tonight. COVID-19 swab sent to lab at 0955. Pt agreeable to plan. Pt started NPO at 0905. Spoke with Dr. Ocasio via phone for updated plan at 0906. Surgery tonight, PICC line placement with TPN.
[2019-11-26 11:45] LABS: COVID19 -Nasal RAPID Negative (Negative)
[2019-11-26] MEDS: SODIUM CHLORIDE 0.9% FLUSH 10 ML IV (11:48)
[2019-11-26] MEDS: metroNIDAZOLE 500 MG/100 ML PIGGYBACK 100 MG IV ×2 (11:49→16:23)
[2019-11-26] MEDS: POTASSIUM PHOSPHATE 15 MMOL in DEXTROSE 5% IN WATER 250 ML 63.75 ML IV (12:57)
--- NOTE | 2019-11-26 14:18 | DI.RAD.S_ITS ---
PROCEDURE: XR CHEST FOR PICC 1V INDICATIONS: for PICC line placement confirmation COMPARISON: None. FINDINGS: PICC was placed by the intravenous therapy team from the right side. Fluoroscopic spot film demonstrates the tip of PICC projecting to the area of lower SVC IMPRESSION: Tip of PICC projects to the area of lower SVC Dictated by: Elmer Prado M.D. on 11/26/2019 at 15:45 Approved by: Elmer Prado M.D. on 11/26/2019 at 15:46
[2019-11-26 15:11] LABS: Calcium 6.9 mg/dL (8.4-10.2); Carbon Dioxide 28 mmol/L (22-32); Chloride 98 mmol/L (98-107); Estimated Glomerular Filt Rate > 60.0 mL/min (>60); Glucose 122 mg/dL (80-110); HEMOLYSIS < 15 (0-50); Potassium 3.6 mmol/L (3.4-5.1); Sodium 131 mmol/L (137-145)
[2019-11-26 15:14] LABS: BUN Creatinine Ratio 4.7 (6-22); Blood Urea Nitrogen < 2 mg/dL (7-17)
[2019-11-26] MEDS: KCL 40 MEQ IN NS 1,000 ML 100 MEQ IV (15:36)
[2019-11-26] MEDS: AA 5 %/CALCIUM/LYTES/DEXT 20 % 1,000 ML with MULTIVITAMIN 10 ML, TRACE ELEMENTS 1 ML 42.125 ML IV (17:44)
[2019-11-26] MEDS: FAT EMULSIONS 50 GM/250 ML EMULSION IV (17:45)
[2019-11-26] MEDS: LACTATED RINGERS 1,000 ML 42 ML IV (19:45)
[2019-11-26] MEDS: BUPIVACAINE 0.25% W/ EPI 30 ML VIAL INJ (20:40)
--- NOTE | 2019-11-26 22:16 | P.OP_ITS ---
Operative Date/Time/Diagnoses Date of procedure: 11/26/19 Time of procedure: 22:16 Pre-op diagnosis: partial bowel obstruction, leukocytosis Post-op diagnosis: other (dense adhesions, PBSO, pelvic abscess, free fluid) Procedure & Clinicians Procedure: Laparoscopy converted to laparotomy, takedown of adhesions, drainage of pelvic abscess and phlegmon, washout of free fluid, drain placement x 2 Same procedure as scheduled: Yes Indications: This is a 64 yo woman with history of perforated appendicitis ten days ago who returned to the hospital with obstructive symptoms and leukocytosis five days ago. Surgery was recommended at that time, but refused. She continues to have dilated small bowel and increasing WBC in the setting of broad spectrum antibiotics. Internal hermia, bowel ischemia, or occult abscess are suspected. A second opinion was requested of Dr. Henriquez, who recommended surgery, to which the patient agreed. Surgeon: Orquidea Ocasio Broadcast Field Supervisor: Jose Henriquez Anesthesia Type: General Operative Notes Findings: Dense adhesions of transverse colon and omentum to small bowel in the RLQ; small pelvic abscess, generalized free fluid. Specimen(s): none sent Prosthetic devices, grafts, tissues, transplants, or devices: 19 round len drain x 2 Estimated Blood Loss (mL): 100 Blood products transfused: none Procedure in detail: The patient was brought into the operating room and placed supine on the OR table. Sequential compression devices were placed on both legs and turned on. Appropriate perioperative antibiotics were given prior to the start of surgery. General anesthesia was induced the patient was intubated. A gill catheter was placed sterilely in the bladder. The abdomen and perineum were prepped and draped in sterile fashion. Surgical time-out was conducted. Local anesthetic was injected under the skin just superior to the umbilicus and the prior port site was reopened. The umbilical stalk was grasped with a Archie and elevated. A 5 mm optical trocar was placed under direct vision using a 5 mm 30 degree scope. Once the camera was inside the abdomen, the abdomen was insufflated to 15mm Hg. Once the abdomen was insufflated I took a look around. There was no injury from port placement. Two additional ports were placed in a similar fashion in the prior suprapubic port site. A general inspection of the abdomen was undertaken. There werer loops of small bowel in the left side of the abdomen which were dilated and appeared free from adhesions. In the right lower quadrant there were dense adhesions of omentum tacked down to small bowel and transverse colon. There was bilious fluid in the right gutter, which was suctioned clean. Dense adhesions in the pelvis were seen as well. Adhesions were initially taken down with ligasure, but there were very firm adhesions to the small bowel and colon that could not be taken down easily. They were very hard and well vascularized. I decided then to place a hand port in order to take down the adhesions more gently. A 7cm periumbilical incision was made in the skin vertically using a 10 blade. I then dissected down to the fascia using cautery. Once the fascia was opened I placed a Gelport hand port. Using my hand, I was able to take down some additional adhesions, but there was a very hard phlegmon in the right lower quadrant that could not be freed up by hand. Local anesthetic was then injected in the skin and the incision was extended to 20cm going down toward the pubic bone. Dissection was carried down through the dermis, subcutaneous fat and fascia. The fascia was opened vertically for the entire length of the incision. A bookwalter retractor was placed with good exposure of the involved colon and pelvis. We continued to dissect the area of obstruction which was in the right lower quadrant, and appeared to involve the distal small bowel, right colon, and the omentum of the transverse colon. There were loops of bowel densely adhesed to each other such that they could not be without injuring the bowel. The remainder of the small bowel and colon were examined. From the ligament of Trietz down to the mid ileum the small bowel was free, but was dilated c/w obstruction. In the pelvis and right lower quadrant were loops of distal ileum stuck down with adhesions. The distal ileum and cecum could not be differentiated from each other due to dense phlegmon and adhesions. The colon was free from mid transverse to sigmoid. The adhesions were dense and vascular. Moderate raw surface oozing was seen from the retroperitoneum and right gutter. We dissected in the pelvis using gentle finger fracture, and got into an abscess cavity. This was suctioned clean and irrigated. At this point, it was clear that the only way to go forward would involve bypassing or resecting a large segment of bowel, or alternatively pulling back, placing drains, and electing to treat with antibiotics, NGT, TPN, and give it time to open up. The abdomen was washed out with several liters of warm saline. There was no significant active bleeding seen. Two WILMAR drains were placed, one in the pelvis near the abscess site, and one in the right paracolic gutter. The pelvic drain exits the right lower quadrant, and the right gutter drain exits the left lower quadrant. The WILMAR drains were sutured in place using 2-0 Nylon suture. The fascia was then closed with running 0-PDS, and interrupted 0-Vicryl. The skin was closed with milady. 4-Monocryl was used to close the umbilical skin. Dressings were placed around the drains and along the midline fascial incision using gauze and medipore tape. The Gill was left in place. Needle, sponge, and instrument counts were correct x2 at the end of the procedure. The patient tolerated the procedure well. Patient was awakened from anesthesia and extubated. She was transferred to the postanesthesia care unit in stable condition. Complications: none Post-operative Condition: stable Disposition: PACU Plan for aftercare: NGT to LIWS; TPN; NPO except for sips and ice chips
--- NOTE | 2019-11-26 23:11 | SUR.PHASEI ---
Report to CHELLY Dixon. Pt transferred in stable condition back to room 223. Monitoring resumed by CHELLY Dixon
[2019-11-26] MEDS: HYDROMORPHONE 0.5 MG INJ IV (23:31)
[2019-11-27] VITALS (9 sets, daily range): BP systolic 107–125; BP diastolic 60–75; PULSE 83–99; RESP 15–18; TEMP 36.4–37.2; O2SAT 94–98; BMI 21.9
[2019-11-27] MEDS: metroNIDAZOLE 500 MG/100 ML PIGGYBACK 100 MG IV ×3 (00:32→16:32)
[2019-11-27] MEDS: PIPERACILLIN-TAZO 3.375 GM/50 ML FROZ.PIGGY IV ×4 (01:55→20:45)
[2019-11-27] MEDS: HYDROMORPHONE 0.5 MG INJ IV ×5 (03:33→17:03)
[2019-11-27 05:09] LABS: Hematocrit 31.4 % (36-46); Hemoglobin 10.8 g/dL (12.0-16.0); Mean Corpuscular HGB Conc 34.2 % (30-36); Mean Corpuscular Hemoglobin 30.9 PG (26-34); Mean Corpuscular Volume 90.2 fL (80-100); Platelet Count 616 X10^3/uL (150-400); Red Blood Cell Count 3.49 X10^6/uL (4.0-5.2)
[2019-11-27 05:10] LABS: Add Manual Diff / Slide Review YES
[2019-11-27 05:20] LABS: Calcium 7.3 mg/dL (8.4-10.2); Carbon Dioxide 30 mmol/L (22-32); Chloride 98 mmol/L (98-107); Estimated Glomerular Filt Rate > 60.0 mL/min (>60); Glucose 231 mg/dL (80-110); HEMOLYSIS < 15 (0-50); Magnesium 2.3 mg/dL (1.6-2.3); Potassium 4.3 mmol/L (3.4-5.1); Sodium 129 mmol/L (137-145)
[2019-11-27 05:28] LABS: BUN Creatinine Ratio 5.3 (6-22); Blood Urea Nitrogen 2 mg/dL (7-17)
[2019-11-27] MEDS: KCL 40 MEQ IN NS 1,000 ML 100 MEQ IV (05:50)
[2019-11-27 06:39] LABS: Neutrophils Absolute Manual 15470 /uL (3000-5900); Total Cells Counted 100
[2019-11-27 06:40] LABS: Platelet Estimate Increased on smear; RBC Morphology Normal Morphology
[2019-11-27] MEDS: VANCOMYCIN 1,000 MG/200 ML PIGGYBACK 200 MG IV ×2 (06:52→20:46)
[2019-11-27 07:42] LABS: Phosphorous 2.2 mg/dL (2.8-4.1)
--- NOTE | 2019-11-27 08:25 | CM.DPC ---
DCP Cont: Per Surgeon, pt now agreeable to exploratory lap surgery as pt has not improved and likely has bowel obstruction with internal hernia that may need bowel resection. Pt was admitted to surgery last night 11/26/19 and currently has PICC and TPN and had rapid COVID 19 test yesterday prior to surgery. Pt typically independent at baseline and SW to follow closely today for progress with ambulation and eventual advancing of her diet. Plan: SW to follow closely to determine if pt will still be safe for return home at d/c and any further identified needs based on eventual advancing of her diet and ambulation. CONNIE Saenz
[2019-11-27] MEDS: SODIUM CHLORIDE 0.9% 1,000 ML 60 ML IV (09:56)
[2019-11-27] MEDS: POTASSIUM PHOSPHATE 15 MMOL in DEXTROSE 5% IN WATER 250 ML 63.75 ML IV (09:56)
[2019-11-27] MEDS: BENZOCAINE/MENTHOL 1 LOZ PKT 1 EACH PO ×2 (11:01→19:23)
--- NOTE | 2019-11-27 12:25 | P.PN_ITS ---
Subjective Subjective Date Patient Seen: 11/27/19 Time Patient Seen: 12:26 Interval history: Pt was taken to OR last evening for ex lap, lysis of adhesions, drainage of abscess and peritoneal fluid. She says she feels ok this morning. Some pain, which is controlled with IV dilaudid. Exam Vital Signs (past 8 hours): - 11/27/19 06:05 11/27/19 07:00 11/27/19 10:40 Temperature 97.5 F L 97.5 F L Pulse Rate 83 85 Respiratory Rate 16 18 Blood Pressure 121/69 125/75 Pulse Oximetry 97 97 96 11/27/19 11:45 Temperature 97.7 F Pulse Rate 83 Respiratory Rate 18 Blood Pressure 117/73 Pulse Oximetry 95 Oxygen Delivery Method Nasal Cannula Oxygen Flow Rate 0 Narrative Exam Narrative: GENERAL: Alert, oriented, comfortableAppears stated age. Answ ers questions promptly and appropriately. Vital signs noted. HENT: Normocephalic, atraumatic. Hearing intact. Oral mucosa is pink and moist. EYES: Conjunctiva pink, sclera white, no periorbital swelling. CARDIOVASCULAR: Regular rate. No pedal edema. RESPIRATORY: Non-tachypneic, breathing comfortably on room air. GASTROINTESTINAL: Abdomen soft; dressings c/d/i; WILMAR drains serosanguinous MUSCULOSKELETAL: Equal tone and mass bilaterally. SKIN: Warm, dry, soft, appropriate color for ethnicity. No other lesions, rashes, or wounds. NEURO: Alert and Oriented X 3. No gross sensory deficits, or cognitive issues. PSYCH: Appropriate affect and mood. Objective Labs Result Diagrams: 11/27/19 04:51 11/27/19 04:51 Labs: Laboratory Results - last 24 hr 11/26/19 11/27/19 11/27/19 14:50 04:51 04:51 WBC 17.0 H RBC 3.49 L Hgb 10.8 L Hct 31.4 L MCV 90.2 MCH 30.9 MCHC 34.2 RDW 13.0 Plt Count 616 H Neut % (Auto) Not Reportable Lymph % (Auto) Not Reportable [place] % (Auto) Not Reportable Eos % (Auto) Not Reportable Baso % (Auto) Not Reportable Lymph # (Auto) Not Reportable [place] # (Auto) Not Reportable Baso # (Auto) Not Reportable Total Counted 100 Seg Neutrophils % 87.0 H Band Neutrophils % 4.0 Lymphocytes % (Manual) 7.0 L Monocytes % (Manual) 1.0 L Metamyelocytes % 1.0 H Neutrophils # (Manual) 97148 H Platelet Estimate Increased on smear RBC Morphology Normal morphology Sodium 131 L 129 L Potassium 3.6 4.3 Chloride 98 98 Carbon Dioxide 28 30 BUN < 2 L 2 L Creatinine 0.43 L 0.38 L Estimated GFR > 60.0 > 60.0 BUN/Creatinine Ratio 4.7 L 5.3 L Glucose 122 H 231 H D Calcium 6.9 L 7.3 L Phosphorus Magnesium 2.3 11/27/19 04:51 WBC RBC Hgb Hct MCV MCH MCHC RDW Plt Count Neut % (Auto) Lymph % (Auto) [place] % (Auto) Eos % (Auto) Baso % (Auto) Lymph # (Auto) [place] # (Auto) Baso # (Auto) Total Counted Seg Neutrophils % Band Neutrophils % Lymphocytes % (Manual) Monocytes % (Manual) Metamyelocytes % Neutrophils # (Manual) Platelet Estimate RBC Morphology Sodium Potassium Chloride Carbon Dioxide BUN Creatinine Estimated GFR BUN/Creatinine Ratio Glucose Calcium Phosphorus 2.2 L Magnesium Assessment & Plan Assessment and plan (1) Partial small bowel obstruction: Problem details: Clear liquid diet as tolerated, reglan, correct electrolytes; ambulate as tolerated; I have suspected from the day of readmission that there is an intra- abdominal infection causing the ileus such as a post appy abscess or post appy bleed. It is possible that she has an adhesive obstruction, although the contrast passes through. I have recommended laparoscopic exploration, but thus far the patient has declined. Current visit: Yes Status: Acute (2) Status post appendectomy: Current visit: No Status: Acute (3) Diarrhea: Problem details: Continues; added probiotic Current visit: No Status: Acute Assessment & Plan narrative: This is a 64 yo woman who had an appendectomy ten days ago for perforated appendicitis. She has developed a significant right lower quadrant inflammatory response and has a bowel obstruction and persistent leukocytosis. She was taken to the OR yesterday and found to have a small pelvic abscess, free peritoneal fluid, and a hard phlegmon in the right lower quadrant which was hostile to dissection. The inflammatory phlegmon is densely tethering her small bowel and right colon. These could not be safely dissected free without significant risk of injury to bowel and extensive bowel resection. Washout was completed after lysis of adhesions, and drains were left. She continues on TPN. NGT, camacho and two WILMAR's are in and being managed by bedside nurse. IV antibiotics are continuing for now. WBC is 17 today. I had a long discussion with the patient and her sister regarding her findings in the OR and the expectations for her recovery. We discussed the likelihood that she will need 4-12 weeks for return of bowel function, she may need another surgery, she may need a G tube or diverting ostomy if she can not tolerate NGT removal at some point. The patient and her sister had time to ask all of their questions and stated they were satisfied with the answers and with the plan of care. Plan: Replace electrolytes Continue TPN NPO NGT to LIWS Continue IV abx, pain meds, antiemetics Ambulate as tolerated remove camacho when pt can get up to the bathroom or bed pain WILMAR drain management Daily labs Quality VTE Deep Vein Thrombosis/Pulmonary Embolism Present on Admission: No
--- NOTE | 2019-11-27 14:02 | PC.NURSE ---
Addendum entered by Trupti Hernadez R.N. 11/27/19 15:31: Turning Pt q2, needing significant encouragement, as she feels pain will not be managed. Contacted Deena for additional IV Dilaudid. Pt is going to need substantial enc for IS. Stable VS. Original Note: Am shift Pt is A/o x3, forgetful at times, appears to need extended time to tara options over Able to make needs known. Using call light for needs. Ice chips and sips of h20 PRN. Cepacol lozenge per order. Conference call with Dr Ocasio at bedside and Pt sister on phone, re POC and treatment plan. Goal is to continue with TPN for support through resolving SBO, and IV abx. This may be an extended POC up to 6 weeks of TPN. Pt and family aware of this plan. NG to LIS. Output green/bilious. BT absent. Drain x2 to ABD, output serosang. Gill patent, goal for removal tomrorrow. Pt reluctant to move, continue to address and encourage. TPN to PICC RUE, and NS and ABX infusing, PRN IV Dilaudid. Afebrile. VSS. Weaned off o2, Ra Spo2 95%.
[2019-11-27] MEDS: HYDROMORPHONE 2 MG INJ 1 MG IV ×3 (14:42→21:15)
--- NOTE | 2019-11-27 15:31 | DIET.PN ---
Dietary Progress Note Assessment: 64y F admitted for feeling poorly s/p abd procedure the week before, referred to nutrition for collaboration on TPN feeding. Pt course includes surgery on 11/13 for perforated appendix, admitted on 11/21 for not feeling well c some diarrhea and vomiting. Taken back to OR on 11/25 for removal of adhesions and drainage of abscess and started on TPN same day. Pt reports no weight loss since surgery in Admission Assessment but has had poor intake at least past 5d c projected return of bowel fxn ~4-12w c possibility of needing further procedures. Recc continuous feeding of Clinimix 5/20 via PICC line with goal rate of 62mL/h providing 1530 kcals (meets 98% of needs), 64g PRO (meets 91% of needs) and 1.5L fluids (meets 83% of needs), c 250mL 20% lipids on , , . Pts most current labs show Mg and K within normal limits, Phos 2.2 L, and BG elevated to 231. Electrolytes are being repleted per MD order and current TPN contains 5 U insulin. Pt's TPN currently running at 42mL/h, recc continuing this rate until BG and electrolytes normalize, then increase to goal (62mL/h) as tolerated. HT: 162.5cm WT: 58kg BMI: 22.0 Labs: BG 231 H, Phos 2.2 L, Mg 2.3, K 4.3 MNA: 13 Gio: 22 Nutrition Diagnosis: Inadequate protein energy intake r/t altered GI function (dense adhesions and abscess s/p perforated appendix) aeb pt meeting <50% EER for 5d, pts return of bowel function projected to take 4-12w, borderline BMI for age of 22.0. Interventions: Recc continuous feeding of Clinimix 5/20 via PICC line with goal rate of 62mL/h providing 1530 kcals (meets 98% of needs), 64g PRO (meets 91% of needs) and 1.5L fluids (meets 83% of needs), c 250mL 20% lipids on , , . Pt's TPN currently running at 42mL/h, recc continuing this rate until BG and electrolytes normalize, then increase to goal (62mL/h) as tolerated. Diet Order: NPO EER: 1550kcal, 70g PRO (1.2g/kg to promote healing), 1800mL fluids (31mL/kg) Monitoring/Evaluations: RDs not here over weekend but can be contacted as needed: Bettina [phone]
[2019-11-27 19:40] LABS: Vancomycin Trough 5.3 ug/mL (10-20)
[2019-11-27] MEDS: VANCOMYCIN TROUGH 1 REQUEST MISC (20:14)
[2019-11-27] MEDS: AA 5 %/CALCIUM/LYTES/DEXT 20 % 1,000 ML with MULTIVITAMIN 10 ML, TRACE ELEMENTS 1 ML, I... 42.127 ML IV (20:45)
[2019-11-28] MEDS: HYDROMORPHONE 2 MG INJ 1 MG IV ×3 (00:55→10:41)
[2019-11-28 00:56] VITALS: BP 130/74; PULSE 87; RESP 16; TEMP 36.2; O2SAT 95
[2019-11-28] MEDS: metroNIDAZOLE 500 MG/100 ML PIGGYBACK 100 MG IV ×3 (00:56→16:07)
[2019-11-28] MEDS: PIPERACILLIN-TAZO 3.375 GM/50 ML FROZ.PIGGY IV ×4 (02:25→20:30)
[2019-11-28] MEDS: HYDROMORPHONE 0.5 MG INJ IV ×5 (03:17→22:05)
[2019-11-28] MEDS: VANCOMYCIN 1,000 MG/200 ML PIGGYBACK 200 MG IV ×3 (03:25→21:09)
[2019-11-28 04:39] VITALS: BP 115/65; PULSE 98; RESP 16; TEMP 36; O2SAT 93
[2019-11-28 06:11] LABS: Hematocrit 30.7 % (36-46); Hemoglobin 10.4 g/dL (12.0-16.0); Platelet Count 538 X10^3/uL (150-400); Red Blood Cell Count 3.37 X10^6/uL (4.0-5.2); Red Cell Distribution Width 13.3 % (11.6-14.8); White Blood Cell Count 13.3 X10^3/uL (4.5-11.0)
[2019-11-28 06:12] LABS: Add Manual Diff / Slide Review YES
[2019-11-28 06:14] LABS: Phosphorous 2.6 mg/dL (2.8-4.1)
[2019-11-28 06:15] LABS: BUN Creatinine Ratio 16.7 (6-22); Blood Urea Nitrogen 8 mg/dL (7-17); Calcium 7.5 mg/dL (8.4-10.2); Carbon Dioxide 33 mmol/L (22-32); Chloride 93 mmol/L (98-107); Estimated Glomerular Filt Rate > 60.0 mL/min (>60); Glucose 140 mg/dL (80-110); HEMOLYSIS < 15 (0-50); Magnesium 2.1 mg/dL (1.6-2.3); Potassium 4.5 mmol/L (3.4-5.1); Sodium 127 mmol/L (137-145)
[2019-11-28 06:55] LABS: Hypochromasia 1+; Neutrophils Absolute Manual 11305 /uL (3000-5900); Platelet Estimate Increased on smear; Total Cells Counted 100
[2019-11-28 08:26] VITALS: BP 122/76; PULSE 95; RESP 17; TEMP 36.8; O2SAT 93
[2019-11-28] MEDS: SODIUM CHLORIDE 0.9% 1,000 ML 60 ML IV (08:26)
[2019-11-28 12:06] VITALS: BP 114/74; PULSE 89; RESP 15; TEMP 37.1; O2SAT 94
--- NOTE | 2019-11-28 14:45 | PC.NURSE ---
Shift summary: A&O X3. Midline abd dressing with old shadow drainage within previously marked margins. Dressings at L and R WILMAR sites are bother C/D/I. Remains NPO with sips/chips. Denies N/V. BT+, hypoactive. Denies flatus. Abd soft, tender. NG to LIS, greenish yellow output. TPN and IVF per orders, PICC site in [facility] WN. PICC dressing changed today. Lungs CTA, HRR. Using IS independently. Abd pain well-managed with IV Dilaudid PRN. Gill to gravity, urine clear yellow. Able to make needs known and calls appropriately. Light and belongings within reach, bed alarm on.
[2019-11-28 15:40] VITALS: BP 120/70; PULSE 94; RESP 20; TEMP 36.5; O2SAT 94
--- NOTE | 2019-11-28 16:26 | CM.DPNOTE ---
DCP Cont Reviewed chart, met w/patient to review DCP. Patient is in good spirits today, states she is eager to get up and get my strength back when she is able. Patient states she has been an indp, active walking daily person up until this hospitalization and expects to return home w/friends and neighbors to assist upon medical DC. Patient has a PICC in for nutrition and states she may DC w/PICC (?) Patient appreciative of the visit but denies needs from this [employer] at this time. DCP team will continue to follow closely for any DC needs or concerns arise. CONNIE Vann
--- NOTE | 2019-11-28 16:36 | PM.PNPO.1 ---
Subjective Subjective Date Patient Seen: 11/28/19 Time Patient Seen: 11:41 Interval history: Patient is postop day 2. From a exploratory laparotomy. She feels much better. She says she has less pain. She does not feel distended her nauseated. No bowel function. Pain is well controlled. Exam Vital Signs (past 8 hours): - 11/28/19 12:06 11/28/19 15:40 Temperature 98.8 F 97.7 F Pulse Rate 89 94 H Respiratory Rate 15 20 Blood Pressure 114/74 120/70 Pulse Oximetry 94 94 Oxygen Delivery Method Room Air Oxygen Flow Rate 0 Narrative Exam Narrative: Lungs are clear to auscultation. Decreased breath sounds in the right base. Heart regular rate and rhythm without murmur gallop. Abdomen is in tacked distended soft. There is no drainage on the dressings. They were left alone until tomorrow. Objective Labs Result Diagrams: 11/28/19 05:45 11/28/19 05:45 Labs: Laboratory Results - last 24 hr 11/27/19 11/28/19 11/28/19 18:47 05:45 05:45 WBC 13.3 H RBC 3.37 L Hgb 10.4 L Hct 30.7 L MCV 91.0 MCH 31.0 MCHC 34.0 RDW 13.3 Plt Count 538 H Neut % (Auto) Not Reportable Lymph % (Auto) Not Reportable [place] % (Auto) Not Reportable Eos % (Auto) Not Reportable Baso % (Auto) Not Reportable Lymph # (Auto) Not Reportable [place] # (Auto) Not Reportable Baso # (Auto) Not Reportable Total Counted 100 Seg Neutrophils % 81.0 H Band Neutrophils % 4.0 Lymphocytes % (Manual) 10.0 L Monocytes % (Manual) 4.0 Eosinophils % (Manual) 1.0 L Neutrophils # (Manual) 55800 H Platelet Estimate Increased on smear RBC Morphology See below Hypochromasia 1+ H Sodium 127 L Potassium 4.5 Chloride 93 L Carbon Dioxide 33 H BUN 8 Creatinine 0.48 L Estimated GFR > 60.0 BUN/Creatinine Ratio 16.7 Glucose 140 H Calcium 7.5 L Phosphorus Magnesium 2.1 Vancomycin Trough 5.3 L 11/28/19 11/28/19 05:45 11:30 WBC RBC Hgb Hct MCV MCH MCHC RDW Plt Count Neut % (Auto) Lymph % (Auto) [place] % (Auto) Eos % (Auto) Baso % (Auto) Lymph # (Auto) [place] # (Auto) Baso # (Auto) Total Counted Seg Neutrophils % Band Neutrophils % Lymphocytes % (Manual) Monocytes % (Manual) Eosinophils % (Manual) Neutrophils # (Manual) Platelet Estimate RBC Morphology Hypochromasia Sodium Potassium Chloride Carbon Dioxide BUN Creatinine Estimated GFR BUN/Creatinine Ratio Glucose Calcium Phosphorus 2.6 L Magnesium Vancomycin Trough 9.0 L Assessment & Plan Post-op Postoperative Procedures: Procedures Operation Date: 11/26/19 20:15 Actual Procedures Side Surgeon p Laparoscopy, Diagnostic, converted to laparotomy, takedown adhesions Orquidea Ocasio MD Postoperative day: 2 Postoperative status narrative: Doing as expected. White blood cell count is coming down. Postoperative plan narrative: Advance TPN. Increase insulin in the bag. Lipids again today. Check labs in the morning. Glucose fingersticks. Quality VTE Deep Vein Thrombosis/Pulmonary Embolism Present on Admission: No
[2019-11-28] MEDS: FAT EMULSIONS 50 GM/250 ML EMULSION IV (17:54)
[2019-11-28] MEDS: AA 5 %/CALCIUM/LYTES/DEXT 20 % 1,500 ML with MULTIVITAMIN 10 ML, TRACE ELEMENTS 1 ML, I... 42.127 ML IV (17:54)
[2019-11-28 19:44] VITALS: BP 130/73; PULSE 93; RESP 18; TEMP 36.8; O2SAT 95
[2019-11-29] VITALS (7 sets, daily range): BP systolic 109–141; BP diastolic 65–81; PULSE 80–95; RESP 14–18; TEMP 36.3–37.7; O2SAT 95–99
[2019-11-29] MEDS: metroNIDAZOLE 500 MG/100 ML PIGGYBACK 100 MG IV ×3 (00:13→16:23)
[2019-11-29] MEDS: HYDROMORPHONE 0.5 MG INJ IV ×10 (00:30→23:56)
[2019-11-29] MEDS: PIPERACILLIN-TAZO 3.375 GM/50 ML FROZ.PIGGY IV ×4 (02:14→20:03)
[2019-11-29 03:42] LABS: Hematocrit 30.4 % (36-46); Hemoglobin 10.3 g/dL (12.0-16.0); Mean Corpuscular HGB Conc 33.7 % (30-36); Mean Corpuscular Hemoglobin 30.8 PG (26-34); Mean Corpuscular Volume 91.5 fL (80-100); Platelet Count 502 X10^3/uL (150-400); Red Blood Cell Count 3.33 X10^6/uL (4.0-5.2); Red Cell Distribution Width 13.3 % (11.6-14.8); White Blood Cell Count 11.1 X10^3/uL (4.5-11.0)
[2019-11-29 03:43] LABS: Add Manual Diff / Slide Review YES
[2019-11-29 03:47] LABS: Magnesium 2.1 mg/dL (1.6-2.3); Phosphorous 3.2 mg/dL (2.8-4.1)
[2019-11-29 03:48] LABS: Alanine Aminotransferase 16 IU/L (<35); Albumin 2.2 g/dL (3.5-5.0); Albumin Globulin Ratio 0.9 (1.0-2.8); Alkaline Phosphatase 59 U/L (38-126); Aspartate Aminotransferase 31 IU/L (14-36); BUN Creatinine Ratio 18.6 (6-22); Bilirubin Total 0.1 mg/dL (0.2-1.3); Blood Urea Nitrogen 8 mg/dL (7-17); Calcium 7.5 mg/dL (8.4-10.2); Carbon Dioxide 30 mmol/L (22-32); Chloride 93 mmol/L (98-107); Estimated Glomerular Filt Rate > 60.0 mL/min (>60); Globulin 2.5 g/dL (1.7-4.1); Glucose 150 mg/dL (80-110); HEMOLYSIS < 15 (0-50); Potassium 4.1 mmol/L (3.4-5.1); Sodium 127 mmol/L (137-145); Total Protein 4.7 g/dL (6.3-8.2)
[2019-11-29 04:06] LABS: Vancomycin Trough 11.5 ug/mL (10-20)
[2019-11-29] MEDS: VANCOMYCIN 1,000 MG/200 ML PIGGYBACK 200 MG IV ×3 (04:27→20:50)
[2019-11-29] MEDS: VANCOMYCIN TROUGH 1 REQUEST MISC (04:27)
[2019-11-29 04:44] LABS: Neutrophils Absolute Manual 9213 /uL (3000-5900); Total Cells Counted 100
[2019-11-29 04:45] LABS: Hypochromasia 1+; Platelet Estimate Increased on smear
[2019-11-29] MEDS: INSULIN ASPART 100 UNIT/ML INSULN PEN SUBCUT ×3 (06:43→18:20)
[2019-11-29] MEDS: SODIUM CHLORIDE 0.9% 1,000 ML 60 ML IV (08:48)
--- NOTE | 2019-11-29 09:21 | PM.PNPO.1 ---
Subjective Subjective Date Patient Seen: 11/29/19 Time Patient Seen: 09:21 Interval history: The patient is postop day 3 from an exploration. She is feeling little better every day she said she is working on her breathing. Pain is improving. She hopes to get up today. Exam Vital Signs (past 8 hours): - 11/29/19 02:58 11/29/19 08:00 Temperature 98.5 F 99.9 F H Pulse Rate 94 H 86 Respiratory Rate 16 14 Blood Pressure 118/67 109/65 Pulse Oximetry 95 95 Oxygen Delivery Method Room Air Oxygen Flow Rate 0 Narrative Exam Narrative: Cooperative no apparent distress. Good respiratory effort. Abdomen is more scaphoid than yesterday. Soft. Midline is intact without cellulitis. Drains are serous. Objective Labs Result Diagrams: 11/29/19 03:30 11/29/19 03:30 Labs: Laboratory Results - last 24 hr 11/28/19 11/29/19 11/29/19 11:30 03:30 03:30 WBC RBC Hgb Hct MCV MCH MCHC RDW Plt Count Neut % (Auto) Lymph % (Auto) [place] % (Auto) Eos % (Auto) Baso % (Auto) Lymph # (Auto) [place] # (Auto) Baso # (Auto) Total Counted Seg Neutrophils % Band Neutrophils % Lymphocytes % (Manual) Monocytes % (Manual) Basophils % (Manual) Neutrophils # (Manual) Platelet Estimate RBC Morphology Hypochromasia Sodium 127 L Potassium 4.1 Chloride 93 L Carbon Dioxide 30 BUN 8 Creatinine 0.43 L Estimated GFR > 60.0 BUN/Creatinine Ratio 18.6 Glucose 150 H Calcium 7.5 L Phosphorus Magnesium Total Bilirubin 0.1 L AST 31 ALT 16 Alkaline Phosphatase 59 Total Protein 4.7 L Albumin 2.2 L Globulin 2.5 Albumin/Globulin Ratio 0.9 L Vancomycin Trough 9.0 L 11.5 11/29/19 11/29/19 11/29/19 03:30 03:30 03:30 WBC 11.1 H RBC 3.33 L Hgb 10.3 L Hct 30.4 L MCV 91.5 MCH 30.8 MCHC 33.7 RDW 13.3 Plt Count 502 H Neut % (Auto) Not Reportable Lymph % (Auto) Not Reportable [place] % (Auto) Not Reportable Eos % (Auto) Not Reportable Baso % (Auto) Not Reportable Lymph # (Auto) Not Reportable [place] # (Auto) Not Reportable Baso # (Auto) Not Reportable Total Counted 100 Seg Neutrophils % 82.0 H Band Neutrophils % 1.0 L Lymphocytes % (Manual) 13.0 L Monocytes % (Manual) 3.0 Basophils % (Manual) 1.0 Neutrophils # (Manual) 9213 H Platelet Estimate Increased on smear RBC Morphology See below Hypochromasia 1+ H Sodium Potassium Chloride Carbon Dioxide BUN Creatinine Estimated GFR BUN/Creatinine Ratio Glucose Calcium Phosphorus 3.2 Magnesium 2.1 Total Bilirubin AST ALT Alkaline Phosphatase Total Protein Albumin Globulin Albumin/Globulin Ratio Vancomycin Trough Assessment & Plan Post-op Postoperative Procedures: Procedures Operation Date: 11/26/19 20:15 Actual Procedures Side Surgeon p Laparoscopy, Diagnostic, converted to laparotomy, takedown adhesions Orquidea Ocasio MD Postoperative day: 3 Postoperative status: doing well Postoperative plan narrative: Continue IV antibiotics. Her white blood cell count has continued to drop though she still has a little bit of a left shift. NG continues to drain. She has no bowel function so will keep it in place. Her Gill can come out. Her glucoses have trended downward. I will add additional insulin to her TPN. I will remove the phosphorus at is it is now normal. Yesterday it was low. Patient's hematocrit has dropped from a preop of 36-30. This is probably a combination of require liberation decrease with additional fluid sequestration and acute blood loss anemia from her operations. Will add back DVT prophylaxis with low-molecular weight heparin Quality VTE Deep Vein Thrombosis/Pulmonary Embolism Present on Admission: No
[2019-11-29] MEDS: ENOXAPARIN 40 MG/0.4 ML SYRINGE SUBCUT (09:44)
[2019-11-29 15:25] LABS: Phosphorous 2.9 mg/dL (2.8-4.1)
[2019-11-29] MEDS: AA 5 %/CALCIUM/LYTES/DEXT 20 % 1,500 ML with MULTIVITAMIN 10 ML, TRACE ELEMENTS 1 ML, I... 42.127 ML IV (18:07)
--- NOTE | 2019-11-29 22:45 | PC.NURSE ---
A&OX3. pain controlled with IV dilaudid 0.5mg. incision intact w/dried blood. denied any nausea. no flatus. bowel tones hypoactive. sips and chips. NG tube had 100cc out, greenish fluid. Lt Drain 20cc, Rt Drain 1cc. Pt ambulating to the BSC. urinating without difficulty. call light in reach.
[2019-11-30] MEDS: metroNIDAZOLE 500 MG/100 ML PIGGYBACK 100 MG IV ×3 (00:07→16:47)
[2019-11-30] MEDS: PIPERACILLIN-TAZO 3.375 GM/50 ML FROZ.PIGGY IV ×4 (01:55→20:25)
[2019-11-30 04:05] VITALS: BP 128/70; PULSE 81; RESP 18; TEMP 36.7; O2SAT 97
[2019-11-30] MEDS: VANCOMYCIN 1,000 MG/200 ML PIGGYBACK 200 MG IV ×3 (04:08→20:59)
[2019-11-30] MEDS: HYDROMORPHONE 0.5 MG INJ IV ×7 (04:09→21:30)
[2019-11-30 05:30] LABS: Add Manual Diff / Slide Review NO; Basophils Absolute Auto 0 /uL (0-100); Basophils Percent Auto 0.5 % (0-2); Eosinophils Absolute Auto 100 /uL (0-450); Eosinophils Percent Auto 1.2 % (2-4); Hematocrit 28.3 % (36-46); Hemoglobin 9.9 g/dL (12.0-16.0); Lymphocytes Absolute Auto 900 /uL (1100-4500); Lymphocytes Percent Auto 10.8 % (25-40); Mean Corpuscular HGB Conc 34.8 % (30-36); Mean Corpuscular Hemoglobin 31.4 PG (26-34); Mean Corpuscular Volume 90.1 fL (80-100); Monocytes Absolute Auto 700 /uL (0-900); Monocytes Percent Auto 8.7 % (3-14); Neutrophils Absolute Auto 6200 /uL (1500-7000); Neutrophils Percent Auto 78.8 % (50-75); Platelet Count 467 X10^3/uL (150-400); Red Blood Cell Count 3.15 X10^6/uL (4.0-5.2); Red Cell Distribution Width 13.2 % (11.6-14.8); White Blood Cell Count 7.9 X10^3/uL (4.5-11.0)
[2019-11-30 05:38] LABS: Magnesium 2.1 mg/dL (1.6-2.3)
[2019-11-30 05:39] LABS: Alanine Aminotransferase 16 IU/L (<35); Albumin 2.4 g/dL (3.5-5.0); Alkaline Phosphatase 65 U/L (38-126); Aspartate Aminotransferase 30 IU/L (14-36); Bilirubin Total < 0.1 mg/dL (0.2-1.3); Blood Urea Nitrogen 8 mg/dL (7-17); Calcium 7.7 mg/dL (8.4-10.2); Carbon Dioxide 29 mmol/L (22-32); Chloride 98 mmol/L (98-107); Estimated Glomerular Filt Rate > 60.0 mL/min (>60); Globulin 2.5 g/dL (1.7-4.1); Glucose 140 mg/dL (80-110); HEMOLYSIS < 15 (0-50); Potassium 4.1 mmol/L (3.4-5.1); Sodium 129 mmol/L (137-145); Total Protein 4.9 g/dL (6.3-8.2)
[2019-11-30 05:42] LABS: Phosphorous 3.1 mg/dL (2.8-4.1)
[2019-11-30] MEDS: INSULIN ASPART 100 UNIT/ML INSULN PEN SUBCUT ×2 (06:15→12:55)
--- NOTE | 2019-11-30 07:30 | PC.NURSE ---
WILMAR drains putout no output.
[2019-11-30 07:38] VITALS: BP 124/74; PULSE 83; RESP 16; TEMP 36.7; O2SAT 97
[2019-11-30] MEDS: SODIUM CHLORIDE 0.9% FLUSH 10 ML IV ×2 (08:16→11:21)
[2019-11-30] MEDS: ENOXAPARIN 40 MG/0.4 ML SYRINGE SUBCUT (08:16)
[2019-11-30] MEDS: SODIUM CHLORIDE 0.9% 1,000 ML 60 ML IV (09:15)
--- NOTE | 2019-11-30 10:47 | P.PN_ITS ---
Subjective Subjective Date Patient Seen: 11/30/19 Time Patient Seen: 10:47 Interval history: Slowly regaining her strength. No fever nausea. No flatus or bowel movement. Ambulating about the room. Exam Vital Signs (past 8 hours): - 11/30/19 04:05 11/30/19 07:38 Temperature 98.1 F 98.1 F Pulse Rate 81 83 Respiratory Rate 18 16 Blood Pressure 128/70 124/74 Pulse Oximetry 97 97 Oxygen Delivery Method Room Air Oxygen Flow Rate 0 Narrative Exam Narrative: General adult female alert oriented no acute distress Chest nonlabored respiration Abdomen mildly distended. Incision clean dry intact with milady. Mario drain bilaterally with serosanguineous output. Objective Labs Result Diagrams: 11/30/19 05:10 11/30/19 05:10 Labs: Laboratory Results - last 24 hr 11/29/19 11/30/19 11/30/19 14:25 05:10 05:10 WBC 7.9 RBC 3.15 L Hgb 9.9 L Hct 28.3 L MCV 90.1 MCH 31.4 MCHC 34.8 RDW 13.2 Plt Count 467 H Neut % (Auto) 78.8 H Lymph % (Auto) 10.8 L [place] % (Auto) 8.7 Eos % (Auto) 1.2 L Baso % (Auto) 0.5 Neut # (Auto) 6200 Lymph # (Auto) 900 L [place] # (Auto) 700 Eos # (Auto) 100 Baso # (Auto) 0 Sodium 129 L Potassium 4.1 Chloride 98 Carbon Dioxide 29 BUN 8 Creatinine 0.47 L Estimated GFR > 60.0 BUN/Creatinine Ratio 17.0 Glucose 140 H Calcium 7.7 L Phosphorus 2.9 Magnesium Total Bilirubin < 0.1 L AST 30 ALT 16 Alkaline Phosphatase 65 Total Protein 4.9 L Albumin 2.4 L Globulin 2.5 Albumin/Globulin Ratio 1.0 11/30/19 11/30/19 05:10 05:10 WBC RBC Hgb Hct MCV MCH MCHC RDW Plt Count Neut % (Auto) Lymph % (Auto) [place] % (Auto) Eos % (Auto) Baso % (Auto) Neut # (Auto) Lymph # (Auto) [place] # (Auto) Eos # (Auto) Baso # (Auto) Sodium Potassium Chloride Carbon Dioxide BUN Creatinine Estimated GFR BUN/Creatinine Ratio Glucose Calcium Phosphorus 3.1 Magnesium 2.1 Total Bilirubin AST ALT Alkaline Phosphatase Total Protein Albumin Globulin Albumin/Globulin Ratio Assessment & Plan Post-op Postoperative Procedures: Procedures Operation Date: 11/26/19 20:15 Actual Procedures Side Surgeon p Laparoscopy, Diagnostic, converted to laparotomy, takedown adhesions Orquidea Ocasio MD Postoperative plan narrative: 64-year-old female postoperative day 4 status post exploratory laparotomy and drainage of intra abdominal abscess following a laparoscopic appendectomy. She is making a gradual recovery. # postoperative ileus-continue nasogastric tube until return of bowel function # protein malnutrition-continue TPN until able to tolerate adequate oral intake # intra-abdominal infection-continue IV antibiotics # VTE prophylaxis-continue subcu heparin and SCDs -out of bed ambulate physical therapy consult ordered -okay for shower Quality VTE Deep Vein Thrombosis/Pulmonary Embolism Present on Admission: No
[2019-11-30 11:04] VITALS: BP 131/68; PULSE 85; RESP 14; TEMP 37; O2SAT 98
--- NOTE | 2019-11-30 13:46 | DIET.PN ---
Dietary Progress Note Assessment: Ms. Benitez is now at goal rate of 63ml/hr clinimix + 250ml 20% lipid. WT: No change Labs: Phos, Mag, Pot WNL. Glucose 140. Monitoring/Evaluations: Rate tolerance, labs
--- NOTE | 2019-11-30 13:52 | PC.NURSE ---
Addendum entered by Ofe Reeves R.N. 11/30/19 14:58: Pt given waffle cushion for under buttocks while sitting in recliner chair. Upon reassessment, pt stated her buttocks felt better. Encouraged to shift from side to side and adjust hips buttocks while on waffle cushion. Right side abd 'A' drain emptied for 6 mls fluid. Left side abd 'B' drain emptied for 19 mls. Original Note: Day Shift- Pt A&OX4, able to make her needs using call light. OOB to chair this MA, encouraged ambulation in room and halls with assist. C/O across abd pain, aching, intermittent sharp pain. 3/10 rest, aching, 7/10 with movement. PRn IV Dilaudid 0.5mg X2 given at 0815 and 1120. Pt request IV Dilaudid be given slowly as this makes her nauseated. Dilaudid placed on IV pump flushed with NS infusion. NGT to intermittent suction. tubing marked with black pen at nose tape line. NGT has not shifted throughout shift. Abd semi-soft, bloated, no flatus passed. Incision well approximated with bilateral abd len drains in place on bulb suction.
--- NOTE | 2019-11-30 14:00 | PT.IIE ---
Current Diagnoses Elevated white blood cell count, unspecified (11/22/19) Hypokalemia (11/22/19) Anxiety disorder, unspecified (11/22/19) Partial intestinal obstruction, unspecified as to cause (11/22/19) Unspecified intestinal obstruction, unspecified as to partial versus complete obstruction (11/22/19) Fibromyalgia (11/22/19) Nausea (11/22/19) Diarrhea, unspecified (11/22/19) Acquired absence of other specified parts of digestive tract (11/22/19) Surgery Performed Operation Date: 11/26/19 20:15 Actual Procedures p Laparoscopy, Diagnostic, converted to laparotomy, takedown adhesions - Orquidea Ocasio MD Medical History (Last Reviewed 11/22/19 @ 15:07 by Orquidea Ocasio MD) Fibromyalgia (Acute) No significant medical problems (Acute) Physical Therapy Inpatient Evaluation/Re-Eval M1 PT/OT-IP Prior Functional Status Start: 11/30/19 12:54 Freq: NEEDED Status: Active Protocol: Document 11/30/19 13:50 AW (Rec: 11/30/19 15:29 AW [id number]) Medical Review Prior Functional Status Medical History Reviewed Yes Diet/Fluid Consistency NPO Communication WNL Mobility and Gait Pt is very active with a history of backcountry hiking. She currently walks miles per day with friends/neighbors in [place] and practices yoga independently. Activities of Daily Living and IADL's Independent with all Social History Household Members none Living Arrangements House Number of Floors (Floors) One Floor Number of Stairs To Enter/Railing? 3 ANASTASIIA with left rail ascending through the garage. Home Environment Standard Height Toilet,Walk in Shower,Tub/Shower Home Equipment Hand Held Shower,Grab Bars In Shower Employment Status Self-Employed Additional Social History Comment Ena lives alone and has close friends who are neighbors. 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 M2 PT-IP Current Condition Start: 11/30/19 12:54 Freq: NEEDED Status: Active Protocol: Document 11/30/19 13:50 AW (Rec: 11/30/19 15:29 AW [id number]) Physical Therapy Current Condition Current Condition Evaluation Date 11/30/19 Treatment Diagnosis SBO s/p lysis of adhesions, difficulty in walking Onset Date 11/22/19 Precautions Abdominal Surgery Precautions Log Roll,Lifting Restrictions, Gait Belt above Incisional Area Other Precautions NG tube to intermittent suction; PICC line RUE M3 PT-IP Subjective Start: 11/30/19 12:54 Freq: NEEDED Status: Active Protocol: Document 11/30/19 13:50 AW (Rec: 11/30/19 15:29 AW [id number]) Subjective Physical Therapy Visit Type Type Initial Evaluation Visit Start Time 13:24 Visit Stop Time 13:46 Total Visit Minutes 22 Number of SURVEY STATISTICIAN Visits 0 Physical Therapy Visit Comments Patient Comments I feel more energetic today but I'm worried I'm losing strength. Patient Goals To discharge home and eventually resume walking program with her friends. Therapy Pain Assessment Pain When Pain Assessed During Mobility Pain Present Pain Present Pain Reported Location Abdomen Scale Used not quantified Pain Management Techniques Re-positioning,Timing of Activity with Medications M4 PT-IP Mobility and Gait Start: 11/30/19 12:54 Freq: NEEDED Status: Active Protocol: Document 11/30/19 13:50 AW (Rec: 11/30/19 15:29 AW [id number]) PT-Bed Mobility Assessment Rolling Type of Rolling Log Rolling,Roll to Right Level of Assist Minimal Assistance,1 Person Assistance Supine to Sit Supine to Sit Contact Guard Assistance Sit to Supine Sit to Supine Minimal Assistance,1 Person Assistance Scooting Scooting to Edge of Bed Standby Assistance PT-Transfer Assessment Sit to and From Stand Sit to and from Stand Contact Guard Assistance,1 Person Assistance Equipment Transfer Assistive Device Gait Belt Orthotic/Prosthetic Devices or Brace: No Transfers Transfer Destination Bed,Chair Transfer Technique pt ambulated without AD Transfer Ability Level of Assist Contact Guard Assistance Comments Mobility Comments Pt was sitting up in the chair upon PT arrival. She complained of soreness in her bottom. Nursing had recently provided a waffle cushion for offloading and pt is already doing her own turning to avoid sitting or lying in one position too long. Pt sat without UE support for strength testing. She stood CGA and stepped away from the chair without loss of balance. She stood for balance testing and ambulated around the room CGA with assist for line management. PT instructed her in log roll technique which she was able to perform with assist. She remarked that she felt it was easier to get in and out of bed with good attention to proper technique. After bed mobility practice, pt stood and transferred back to the chair CGA where she was positioned with call light and all needs within reach. Gait Assessment Gait Gait Assistance Required: Contact Guard Assist Distance (Feet) 50 Assistive Devices Assistive Device Gait Belt Gait Deviations General Gait Pattern Antalgic,Decreased Stride Length,Decreased Feet Clearance,Flexed Trunk Factors Limiting Gait Function Factors Limiting Gait Function Decreased Activity Tolerance, Decreased Strength,Pain,Poor Balance Comments Gait Comments Pt has an NG tube on wall suction, so ambulation was limited to the room. Pt exhibited mild unsteadiness but had no obvious LOB. Stair Climbing Assessment Comments Stair Climbing Comments Not assessed PT-Balance Assessment Sitting Balance and Reactions Static Sitting Balance Ability Normal Dynamic Sitting Balance Ability Normal Standing Balance and Reactions Static Standing Balance Ability Good Dynamic Standing Balance Ability Good Device Used none Balance Tests Single Limb Standing <2 sec each side Romberg normal EO and EC Comments Other Balance Tests/Deviations/Treatment Pt was able to turn 360 : degrees slowly but without LOB . She was able to walk backward 10 feet with mild unsteadiness CGA. M5 PT-IP Objective Assessments Start: 11/30/19 12:54 Freq: NEEDED Status: Active Protocol: Document 11/30/19 13:50 AW (Rec: 11/30/19 15:29 AW [id number]) Orientation Orientation/Cognition Level of Alertness Alert Orientation Name,Day of Week,Place, Situation Language Function Ability No Deficits Noted Safety Awareness Understands Safety Issues Memory Description No Deficits Noted Gross Range of Motion Upper Extremity ROM Assessment Within Functional Limits Lower Extremity ROM Assessment Within Functional Limits Strength Upper Extremity Strength Assessment Within Functional Limits Lower Extremity Strength Assessment Bilaterally Impaired Comments Strength Comments 4/5 globally in BLE except hips 4-/5 Coordination Assessment Gross Coordination Gross Coordination WNL Sensation Assessment Sensation Gross Sensation WNL Muscle Tone Muscle Tone WNL Yes M6 PT-IP Treatment Start: 11/30/19 12:54 Freq: NEEDED Status: Active Protocol: Document 11/30/19 13:50 AW (Rec: 11/30/19 15:29 AW [id number]) Physical Therapy Treatment Education Education Provided Precautions,Safety Other Treatments Other Treatment Performed Provided education on role of PT, plan of care, abdominal precautions, and importance of continued mobility for skin integrity and bowel motility. M7 PT-IP Assessment and Plan Start: 11/30/19 12:54 Freq: NEEDED Status: Active Protocol: Document 11/30/19 13:50 AW (Rec: 11/30/19 15:29 AW [id number]) PT Summary Assessment and Plan Potential Rehabilitation Potential Excellent Status of Condition at Evaluation Stable Summary Impairments Pain,Strength,Balance,Bed Mobility,Transfers,Gait, Activity Tolerance Assessment Summary Ena is an active and independent 64 yo woman seen for PT evaluation 8 days after being admitted with complications arising from laparoscopic appendectomy on . She is currently POD4 following exploratory laparotomy/lysis of adhesions. She is fully independent at baseline and has good support of close friends who are her neighbors. Her friends are able and willing to assist her at discharge if needed. On evaluation, she required CGA to min assist with all mobilityand deomonstrated decreased strength and activity tolerance. She will benefit from continued acute PT to address strength and stamina impairments and to encourage continued mobility. She is highly motivated and open to the possibility of home health PT at discharge which this therapist does recommend. Goals Bed Mobility Goal Independent Transfer Goal Independent Gait Goal Independent Gait Distance 300 Other Goals - up/down 3 steps with left rail ascending SBA Days to Meet Goals 5 Frequency of Treatment Frequency Of Treatment Once a Day Treatment Plan Physical Therapy Treatment Plan Bed Mobility Training,Transfer Training,Gait Training, Therapeutic Exercise,Balance Retraining,Post Op Education, Discharge Planning, Neuromuscular Re-ed Other Recommendations and Next Treatment 5 time sit to stand or TUG for Focus baseline measure; ther ex for BLE strengthening; progress gait to hallway and assess safety on stairs if possible Recommendations To Nursing Amount of Assist Needed Standby Assistance Discharge Recommendations PT Discharge Recommendations Home with Assistance,Home Health Transportation Needs at Discharge Private Vehicle
[2019-11-30 15:43] VITALS: BP 116/67; PULSE 77; RESP 18; TEMP 36.6; O2SAT 98
[2019-11-30] MEDS: AA 5 %/CALCIUM/LYTES/DEXT 20 % 1,500 ML with MULTIVITAMIN 10 ML, TRACE ELEMENTS 1 ML, I... 63.088 ML IV (18:18)
[2019-11-30] MEDS: FAT EMULSIONS 50 GM/250 ML EMULSION IV (18:19)
[2019-11-30 19:56] VITALS: BP 137/70; PULSE 79; RESP 18; TEMP 36.1
[2019-12-01 00:01] VITALS: BP 134/67; PULSE 87; RESP 16; TEMP 36.4; O2SAT 98
[2019-12-01] MEDS: metroNIDAZOLE 500 MG/100 ML PIGGYBACK 100 MG IV ×3 (00:08→16:13)
[2019-12-01] MEDS: HYDROMORPHONE 0.5 MG INJ IV ×8 (00:08→23:00)
[2019-12-01] MEDS: PIPERACILLIN-TAZO 3.375 GM/50 ML FROZ.PIGGY IV ×4 (01:50→20:14)
[2019-12-01] MEDS: VANCOMYCIN 1,000 MG/200 ML PIGGYBACK 200 MG IV ×3 (03:40→20:54)
[2019-12-01 03:45] VITALS: BP 119/75; PULSE 82; RESP 16; TEMP 36.4; O2SAT 98
[2019-12-01 05:19] LABS: Add Manual Diff / Slide Review NO; Basophils Absolute Auto 100 /uL (0-100); Basophils Percent Auto 0.8 % (0-2); Eosinophils Absolute Auto 100 /uL (0-450); Eosinophils Percent Auto 1.8 % (2-4); Hematocrit 29.6 % (36-46); Hemoglobin 10.1 g/dL (12.0-16.0); Lymphocytes Absolute Auto 800 /uL (1100-4500); Lymphocytes Percent Auto 10.9 % (25-40); Mean Corpuscular HGB Conc 34.3 % (30-36); Mean Corpuscular Hemoglobin 31.1 PG (26-34); Mean Corpuscular Volume 90.7 fL (80-100); Monocytes Absolute Auto 700 /uL (0-900); Monocytes Percent Auto 9.9 % (3-14); Neutrophils Absolute Auto 5700 /uL (1500-7000); Neutrophils Percent Auto 76.6 % (50-75); Platelet Count 460 X10^3/uL (150-400); Red Blood Cell Count 3.26 X10^6/uL (4.0-5.2); Red Cell Distribution Width 13.3 % (11.6-14.8); White Blood Cell Count 7.4 X10^3/uL (4.5-11.0)
[2019-12-01 05:29] LABS: BUN Creatinine Ratio 20.5 (6-22); Blood Urea Nitrogen 9 mg/dL (7-17); Carbon Dioxide 26 mmol/L (22-32); Chloride 99 mmol/L (98-107); Estimated Glomerular Filt Rate > 60.0 mL/min (>60); Glucose 144 mg/dL (80-110); HEMOLYSIS < 15 (0-50); Magnesium 2.2 mg/dL (1.6-2.3); Potassium 4.1 mmol/L (3.4-5.1); Sodium 131 mmol/L (137-145)
[2019-12-01] MEDS: INSULIN ASPART 100 UNIT/ML INSULN PEN SUBCUT ×3 (06:02→18:33)
[2019-12-01] MEDS: SODIUM CHLORIDE 0.9% 1,000 ML 60 ML IV (07:45)
[2019-12-01] MEDS: ENOXAPARIN 40 MG/0.4 ML SYRINGE SUBCUT (07:46)
--- NOTE | 2019-12-01 08:13 | P.PN_ITS ---
Subjective Subjective Date Patient Seen: 12/01/19 Time Patient Seen: 08:13 Interval history: No acute overnight events. No flatus or BM. Feels well. Worked with PT yesterday, ambulatory. Exam Vital Signs (past 8 hours): - 12/01/19 03:45 Temperature 97.5 F L Pulse Rate 82 Respiratory Rate 16 Blood Pressure 119/75 Pulse Oximetry 98 Oxygen Delivery Method Room Air Oxygen Flow Rate 0 Narrative Exam Narrative: Gen-Adult female alert and oriented Abdomen-soft, incision CDI with milady. Bilateral drains S/S output Objective Labs Result Diagrams: 12/01/19 04:45 12/01/19 04:45 Labs: Laboratory Results - last 24 hr 12/01/19 12/01/19 12/01/19 04:45 04:45 04:45 WBC 7.4 RBC 3.26 L Hgb 10.1 L Hct 29.6 L MCV 90.7 MCH 31.1 MCHC 34.3 RDW 13.3 Plt Count 460 H Neut % (Auto) 76.6 H Lymph % (Auto) 10.9 L Mcnairy % (Auto) 9.9 Eos % (Auto) 1.8 L Baso % (Auto) 0.8 Neut # (Auto) 5700 Lymph # (Auto) 800 L Mcnairy # (Auto) 700 Eos # (Auto) 100 Baso # (Auto) 100 Sodium 131 L Potassium 4.1 Chloride 99 Carbon Dioxide 26 BUN 9 Creatinine 0.44 L Estimated GFR > 60.0 BUN/Creatinine Ratio 20.5 Glucose 144 H Calcium 8.0 L Phosphorus 3.0 Magnesium 2.2 Assessment & Plan Post-op Postoperative Procedures: Procedures Operation Date: 11/26/19 20:15 Actual Procedures Side Surgeon p Laparoscopy, Diagnostic, converted to laparotomy, takedown adhesions Orquidea Ocasio MD Postoperative status narrative: 64F POD 5 SP exlap drainage of intra abdominal abscess SP appendectomy for perforated appendicitis #Post operative ileus-continue NGT to suction await return of bowel function #Intra abdominal abscess-continue drains to suction, continue IV abx #Malnutrition-Continue TPN #VTE prophylaxis-SCDs and Hep -OOB ambulate PT Quality VTE Deep Vein Thrombosis/Pulmonary Embolism Present on Admission: No
[2019-12-01 08:15] VITALS: BP 114/68; PULSE 87; RESP 16; TEMP 36.6; O2SAT 99
--- NOTE | 2019-12-01 10:53 | PT.IPTN ---
Current Diagnoses Elevated white blood cell count, unspecified (11/22/19) Hypokalemia (11/22/19) Anxiety disorder, unspecified (11/22/19) Partial intestinal obstruction, unspecified as to cause (11/22/19) Unspecified intestinal obstruction, unspecified as to partial versus complete obstruction (11/22/19) Fibromyalgia (11/22/19) Nausea (11/22/19) Diarrhea, unspecified (11/22/19) Acquired absence of other specified parts of digestive tract (11/22/19) Surgery Performed Operation Date: 11/26/19 20:15 Actual Procedures p Laparoscopy, Diagnostic, converted to laparotomy, takedown adhesions - Orquidea Ocasio MD Physical Therapy Treatment Note M2 PT-IP Current Condition Start: 11/30/19 12:54 Freq: NEEDED Status: Active Protocol: Document 11/30/19 13:50 AW (Rec: 11/30/19 15:29 AW [id number]) Physical Therapy Current Condition Current Condition Evaluation Date 11/30/19 Treatment Diagnosis SBO s/p lysis of adhesions, difficulty in walking Onset Date 11/22/19 Precautions Abdominal Surgery Precautions Log Roll,Lifting Restrictions, Gait Belt above Incisional Area Other Precautions NG tube to intermittent suction; PICC line RUE M3 PT-IP Subjective Start: 11/30/19 12:54 Freq: NEEDED Status: Active Protocol: Document 12/01/19 09:45 MB (Rec: 12/01/19 10:53 MB [id number]) Subjective Physical Therapy Visit Type Type Treatment Note Visit Start Time 09:45 Visit Stop Time 10:04 Total Visit Minutes 19 Number of STEAM BOILER FIREMAN Visits 0 Physical Therapy Visit Comments Patient Comments I get to take a shower today and use my own shampoo. Therapy Pain Assessment Pain When Pain Assessed During Mobility Pain Present Pain Present Pain Reported Location Abdomen Scale Used 2/10 Pain Management Techniques Timing of Activity with Medications M4 PT-IP Mobility and Gait Start: 11/30/19 12:54 Freq: NEEDED Status: Active Protocol: Document 12/01/19 09:45 MB (Rec: 12/01/19 10:53 MB [id number]) PT-Bed Mobility Assessment Rolling Type of Rolling Log Rolling,Roll to Right Level of Assist Standby Assistance Supine to Sit Supine to Sit Standby Assistance PT-Transfer Assessment Sit to and From Stand Sit to and from Stand Contact Guard Assistance,1 Person Assistance Equipment Transfer Assistive Device Gait Belt Transfers Transfer Destination Chair,Bedside Commode Transfer Ability Level of Assist Contact Guard Assistance Comments Mobility Comments PT and pt agree that gait belt under arm pits is the best for her given surgery and lines. Set up asst for toileting on BSC before moving to chair. Pt left with air waffle cushion under her in the chair. She to call out for pain medication via call de dios as nsg on phone when PT leaves. Left call de dios with pt and she is A&O and only getting up with asst and verbalizes she will not get up without asst. Gait Assessment Gait Gait Assistance Required: Contact Guard Assist Distance (Feet) 1 Assistive Devices Assistive Device Gait Belt Gait Deviations General Gait Pattern Decreased Stride Length, Decreased Feet Clearance, Flexed Trunk Factors Limiting Gait Function Factors Limiting Gait Function Decreased Activity Tolerance, Decreased Strength,Pain,Poor Balance Comments Gait Comments NG tube suction on and PICC lines limit mobility PT-Balance Assessment Sitting Balance and Reactions Static Sitting Balance Ability Normal Dynamic Sitting Balance Ability Normal Standing Balance and Reactions Static Standing Balance Ability Good Dynamic Standing Balance Ability Fair Device Used None M5 PT-IP Objective Assessments Start: 11/30/19 12:54 Freq: NEEDED Status: Active Protocol: Document 11/30/19 13:50 AW (Rec: 11/30/19 15:29 AW [id number]) Orientation Orientation/Cognition Level of Alertness Alert Orientation Name,Day of Week,Place, Situation Language Function Ability No Deficits Noted Safety Awareness Understands Safety Issues Memory Description No Deficits Noted Gross Range of Motion Upper Extremity ROM Assessment Within Functional Limits Lower Extremity ROM Assessment Within Functional Limits Strength Upper Extremity Strength Assessment Within Functional Limits Lower Extremity Strength Assessment Bilaterally Impaired Comments Strength Comments 4/5 globally in BLE except hips 4-/5 Coordination Assessment Gross Coordination Gross Coordination WNL Sensation Assessment Sensation Gross Sensation WNL Muscle Tone Muscle Tone WNL Yes M6 PT-IP Treatment Start: 11/30/19 12:54 Freq: NEEDED Status: Active Protocol: Document 12/01/19 09:45 MB (Rec: 12/01/19 10:53 MB [id number]) Physical Therapy Treatment Education Education Provided Precautions,Safety Other Treatments Other Treatment Performed Benefits of incentive spirometer use every hour, sit to stands x5 every time she gets up with nsg, walking around bed with nsg staff M7 PT-IP Assessment and Plan Start: 11/30/19 12:54 Freq: NEEDED Status: Active Protocol: Document 12/01/19 09:45 MB (Rec: 12/01/19 10:53 MB [id number]) PT Summary Assessment and Plan Potential Rehabilitation Potential Excellent Status of Condition at Evaluation Stable Summary Impairments Pain,Strength,Balance,Bed Mobility,Transfers,Gait, Activity Tolerance Assessment Summary Tiesha presents with NG tube set up to suction and PICC line which limit mobility this date. She is eager to con't to improve. Con't gait progression. Goals Bed Mobility Goal Independent Transfer Goal Independent Gait Goal Independent Gait Distance 300 Other Goals - up/down 3 steps with left rail ascending SBA Days to Meet Goals 5 Frequency of Treatment Frequency Of Treatment Once a Day Treatment Plan Physical Therapy Treatment Plan Bed Mobility Training,Transfer Training,Gait Training, Therapeutic Exercise,Balance Retraining,Post Op Education, Discharge Planning, Neuromuscular Re-ed Other Recommendations and Next Treatment 5 time sit to stand or TUG for Focus baseline measure; ther ex for BLE strengthening; progress gait to hallway and assess safety on stairs if possible Recommendations To Nursing Amount of Assist Needed Standby Assistance Discharge Recommendations PT Discharge Recommendations Home with Assistance,Home Health Transportation Needs at Discharge Private Vehicle
[2019-12-01 11:30] VITALS: BP 119/72; PULSE 75; RESP 16; TEMP 36.6; O2SAT 98
--- NOTE | 2019-12-01 13:14 | CM.DANOTE ---
DCP/continued: Reviewed chart. Met with patient explained CM/SW role. White board updated. Patient currently with NG tube on TPN. Patient alert and oriented at time of visit. Patient reports that she hopes to d/c home soon. Patient has very close friends/neighbors that can assist if needed. Patient does not anticipate any needs. Patient reports that she is extremely I in all ADL's. P: Home when stable. CM team to continue to follow. CONNIE Mccullough Discharge Planning/Care Management CM Discharge Assessment Start: 11/23/19 10:03 Freq: Status: Active Protocol: Document 11/23/19 10:04 (Rec: 11/23/19 10:33 [id number]) Discharge Planning Assessment Advance Directives? Yes Advance Directives on File No History Provided By Patient,Medical Record Prior Living Arrangements House Household Members none Type of transporation used prior to Drives own vehicle admit Independent with ADL's Yes Is patient alert and oriented? Yes Caregiver for Another No Barriers to Discharge No Discharge Plan Home Transportation Arrangement Family or friends Referrals Initiated None needed Whiteboard Updated in Patient Room with Yes name and ext. # of Coal Dumping Equipment Operator Review Status In Process Next Review Type Continued Stay Review 11/23/19 10:09 CM Disch. Assessment Note by Jazmin Matos DCP: Case received, EMR reviewed and met with patient. Introduced self and role. Was able to meet with patient in her room and obtain information from patient regarding her baseline activity level, as well as health information. DCP assessment completed with information currently available. Patient is a 64 year old female who admitted yesterday afternoon to the care of the hospitalist team. PCP: Dr. Gómez. Payer: confirmed: [facility]. Patient came to the hospital via private vehicle secondary to abdominal discomfort. Patient had been here at the hospital recently for an acute appendicitis, perforated appendix. Patient currently holds diagnosis of small bowel obstruction, and is being ruled out for C-diff. Met with patient in her room. She is alert and oriented, and independent at baseline. She mentioned that she had gone home with drains after recent surgery, and was able to manage. She resides in [place] by herself, has a daughter that lives in [place]. She also has fiends that can assist her if needed. P: DCP to continue to follow and be available for any needs. She should be able to return home when she is medically stable. It is unclear at this time if patient will need surgery. Jazmin Matos, RN/Diet Aid Initialized on 11/23/19 10:09 - END OF NOTE Document 12/01/19 13:13 KJS (Rec: 12/01/19 13:14 KJS [id number]) Discharge Planning Assessment Assigned Coal Dumping Equipment Operator CONNIE Mccullough Contact Information Agueda Benitez (sister) [phone] Advance Directives? Yes Advance Directives on File No History Provided By Patient,Medical Record Prior Living Arrangements House Household Members none Type of transporation used prior to Drives own vehicle admit Independent with ADL's Yes Is patient alert and oriented? Yes Caregiver for Another No Barriers to Discharge No Discharge Plan Home Transportation Arrangement Friends available to pick patient up when medically stable. Referrals Initiated None needed Additional Comment Waiting to determine how pt progresses after surgery today Whiteboard Updated in Patient Room with Yes name and ext. # of Coal Dumping Equipment Operator Review Status In Process Next Review Type Continued Stay Review
--- NOTE | 2019-12-01 14:32 | PC.NURSE ---
Shift summary: A&O X3. Remains NPO with sips/chips. NG to LIS, secured well at black remedios in nare, greenish yellow output. Denies N/V. BT hypoactive throughout. Denies passing any flatus. Has been up in the chair since earlier this morning. Would love to shower- we tried but ran out of time, so hopefully evening shift can help her shower. Midline abd incision TETO and well-approximated with milady. Some bruising around milady, but no active bleeding, drainage or erythema noted. Dressings at L and R drain sites C/D/I, drains patent to compression. Voiding without issue. Reports pain well-managed with IV Dilaudid. Able to make needs known and calls appropriately, light within reach.
[2019-12-01 15:15] VITALS: BP 119/55; PULSE 76; RESP 16; TEMP 36.6; O2SAT 97
[2019-12-01] MEDS: AA 5 %/CALCIUM/LYTES/DEXT 20 % 1,500 ML with MULTIVITAMIN 10 ML, TRACE ELEMENTS 1 ML, I... 63.088 ML IV (18:24)
[2019-12-01] MEDS: FAT EMULSIONS 50 GM/250 ML EMULSION IV (18:24)
[2019-12-01 19:40] VITALS: BP 124/82; PULSE 84; RESP 15; TEMP 36.8; O2SAT 99
[2019-12-02] MEDS: metroNIDAZOLE 500 MG/100 ML PIGGYBACK 100 MG IV ×3 (00:08→16:31)
[2019-12-02 00:12] VITALS: BP 117/69; PULSE 85; RESP 16; TEMP 36.2; O2SAT 98
[2019-12-02] MEDS: HYDROMORPHONE 0.5 MG INJ IV ×7 (02:05→21:23)
[2019-12-02] MEDS: PIPERACILLIN-TAZO 3.375 GM/50 ML FROZ.PIGGY IV ×4 (02:12→19:30)
[2019-12-02] MEDS: VANCOMYCIN 1,000 MG/200 ML PIGGYBACK 200 MG IV ×3 (04:28→20:41)
[2019-12-02 04:30] VITALS: BP 111/67; PULSE 86; RESP 16; TEMP 36.8; O2SAT 96
[2019-12-02] MEDS: INSULIN ASPART 100 UNIT/ML INSULN PEN SUBCUT ×3 (06:23→18:39)
[2019-12-02 08:00] VITALS: BP 134/69; PULSE 100; RESP 18; TEMP 36.5; O2SAT 97
[2019-12-02] MEDS: ENOXAPARIN 40 MG/0.4 ML SYRINGE SUBCUT (08:44)
[2019-12-02] MEDS: SODIUM CHLORIDE 0.9% 1,000 ML 60 ML IV (08:44)
--- NOTE | 2019-12-02 11:02 | PT.IPTN ---
Current Diagnoses Elevated white blood cell count, unspecified (11/22/19) Hypokalemia (11/22/19) Anxiety disorder, unspecified (11/22/19) Partial intestinal obstruction, unspecified as to cause (11/22/19) Unspecified intestinal obstruction, unspecified as to partial versus complete obstruction (11/22/19) Fibromyalgia (11/22/19) Nausea (11/22/19) Diarrhea, unspecified (11/22/19) Acquired absence of other specified parts of digestive tract (11/22/19) Surgery Performed Operation Date: 11/26/19 20:15 Actual Procedures p Laparoscopy, Diagnostic, converted to laparotomy, takedown adhesions - Orquidea Ocasio MD Physical Therapy Treatment Note M2 PT-IP Current Condition Start: 11/30/19 12:54 Freq: NEEDED Status: Active Protocol: Document 11/30/19 13:50 AW (Rec: 11/30/19 15:29 AW [id number]) Physical Therapy Current Condition Current Condition Evaluation Date 11/30/19 Treatment Diagnosis SBO s/p lysis of adhesions, difficulty in walking Onset Date 11/22/19 Precautions Abdominal Surgery Precautions Log Roll,Lifting Restrictions, Gait Belt above Incisional Area Other Precautions NG tube to intermittent suction; PICC line RUE M3 PT-IP Subjective Start: 11/30/19 12:54 Freq: NEEDED Status: Active Protocol: Document 12/02/19 11:02 AB (Rec: 12/02/19 11:40 AB [id number]) Subjective Physical Therapy Visit Type Type Treatment Note Visit Start Time 11:02 Visit Stop Time 11:27 Total Visit Minutes 25 Number of INKJET OPERATOR Visits 0 Physical Therapy Visit Comments Patient Comments pt agreeable to do PT Therapy Pain Assessment Pain When Pain Assessed At Rest Pain Present Pain Present Pain Reported Location Abdomen Intensity 2 Scale Used Numeric (1 - 10) Pain Management Techniques Re-positioning,Timing of Activity with Medications M4 PT-IP Mobility and Gait Start: 11/30/19 12:54 Freq: NEEDED Status: Active Protocol: Document 12/02/19 11:02 AB (Rec: 12/02/19 11:40 AB [id number]) PT-Transfer Assessment Sit to and From Stand Sit to and from Stand Standby Assistance,1 Person Assistance,Use of Upper Extremities Equipment Transfer Assistive Device Gait Belt Orthotic/Prosthetic Devices or Brace: No Comments Mobility Comments checked on pt and wanted to wait for ~ 20 min after pain meds. check back on pt and pt agreeable to do PT. pt sitting on chair. completed sit to stand SBA. assessed ambulation without AD and required CGA ~ 5 ft. pt presents with unsteady gait. informed pt regarding safety and use of FWW at this time and pt agreed. pt ambulated in the hallway >300 ft using FWW SBA. pt agreed to stay up on chair. positioned on chair. call light and table placed within reach. Gait Assessment Gait Gait Assistance Required: Standby Assistance Distance (Feet) 300 Able to Maintain Weight Bearing Status Yes During Gait Assistive Devices Assistive Device Gait Belt,Front Wheeled Walker Orthotic/Prosthetic Devices or Brace: No Factors Limiting Gait Function Factors Limiting Gait Function Decreased Activity Tolerance, Decreased Strength,Limited Range of Motion,Pain,Poor Balance Comments Gait Comments pls refer to mobility section for details M5 PT-IP Objective Assessments Start: 11/30/19 12:54 Freq: NEEDED Status: Active Protocol: Document 11/30/19 13:50 AW (Rec: 11/30/19 15:29 AW [id number]) Orientation Orientation/Cognition Level of Alertness Alert Orientation Name,Day of Week,Place, Situation Language Function Ability No Deficits Noted Safety Awareness Understands Safety Issues Memory Description No Deficits Noted Gross Range of Motion Upper Extremity ROM Assessment Within Functional Limits Lower Extremity ROM Assessment Within Functional Limits Strength Upper Extremity Strength Assessment Within Functional Limits Lower Extremity Strength Assessment Bilaterally Impaired Comments Strength Comments 4/5 globally in BLE except hips 4-/5 Coordination Assessment Gross Coordination Gross Coordination WNL Sensation Assessment Sensation Gross Sensation WNL Muscle Tone Muscle Tone WNL Yes M6 PT-IP Treatment Start: 11/30/19 12:54 Freq: NEEDED Status: Active Protocol: Document 12/02/19 11:02 AB (Rec: 12/02/19 11:40 AB [id number]) Physical Therapy Treatment Education Education Provided Safety M7 PT-IP Assessment and Plan Start: 11/30/19 12:54 Freq: NEEDED Status: Active Protocol: Document 12/02/19 11:02 AB (Rec: 12/02/19 11:40 AB [id number]) PT Summary Assessment and Plan Potential Rehabilitation Potential Good Summary Impairments Pain,ROM,Strength,Balance,Bed Mobility,Transfers,Gait, Activity Tolerance Progress Towards Goals Progressing Toward Goals Assessment Summary pt progressing with mobility. recommending use of FWW at this time for steadiness and safety and pt agreed. pt plans to go home and stated that she has friends that can provide some assistance if needed. pt will require homehealth PT to improve strenght and activity tolerance. Goals Bed Mobility Goal Independent Transfer Goal Independent Gait Goal Independent Gait Distance 300 Other Goals - up/down 3 steps with left rail ascending SBA Days to Meet Goals 5 Frequency of Treatment Frequency Of Treatment Once a Day Treatment Plan Physical Therapy Treatment Plan Bed Mobility Training,Transfer Training,Gait Training, Therapeutic Exercise,Balance Retraining,Post Op Education, Discharge Planning, Neuromuscular Re-ed Recommendations To Nursing Amount of Assist Needed Standby Assistance Discharge Recommendations PT Discharge Recommendations Home with Assistance,Home Health Transportation Needs at Discharge Private Vehicle
[2019-12-02 12:00] VITALS: BP 113/68; PULSE 89; RESP 18; TEMP 36.7; O2SAT 98
[2019-12-02 12:25] LABS: Vancomycin Trough 11.5 ug/mL (10-20)
[2019-12-02] MEDS: VANCOMYCIN TROUGH 1 REQUEST MISC (12:57)
--- NOTE | 2019-12-02 13:40 | DIET.PN ---
Dietary Progress Note RD f/u on TPN collaboration c surgery team to start cyclic TPN in anticipation of d/c on TPN. 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 At baseline pt is a walker and enjoys her walks c PT in the hospital. Pt not experiencing N/V, no flatulus or BM yet. Pt expresses no hunger but high desire to eat food as many things sound enticing at this time. Pt continuing NG suction c output, tolerating TPN at goal rate. 64y F admitted for feeling poorly s/p abd procedure the week before, referred to nutrition for collaboration on TPN feeding. Pt course includes surgery on 11/13 for perforated appendix, admitted on 11/21 for not feeling well c some diarrhea and vomiting. Taken back to OR on 11/25 for removal of adhesions and drainage of abscess and started on TPN same day. Pt reports no weight loss since surgery in Admission Assessment and remains wt stable since starting TPN c projected return of bowel fxn ~4-12w c possibility of needing further procedures. HT: 162.5cm WT: 58kg (holding stable) BMI: 22.0 Labs: BG 144 H, Phos 3.0, Mg 2.2, K 4.3, liver enzymes WNL MNA: 13 Gio: 22 Nutrition Diagnosis: Altered GI function (dense adhesions and abscess s/p perforated appendix) r/t complicated surgical course aeb pt meeting <50% EER for 5d, pts return of bowel function projected to take 4-12w, borderline BMI for age of 22.0. Interventions: Recc 16hr nocturnal ([id number]) cyclic feeding of Clinimix 5/20 via PICC line with goal rate of 93mL/h providing 1530 kcals (meets 98% of needs), 64g PRO (meets 91% of needs) and 1.5L fluids (meets 83% of needs), c 250mL 20% lipids on M, W, F. First and last hour of feeding at 50% rate (45mL/h). Please note pt requires additional 300mL free water/d to meet hydration needs. Diet Order: NPO EER: 1550kcal, 70g PRO (1.2g/kg to promote healing), 1800mL fluids (31mL/kg)
--- NOTE | 2019-12-02 13:47 | PC.NURSE ---
Patient has a midline incision to her lower/mid abdomen that is open to air with milady intact. She also has two len drains that are putting out sangenous liquid from left drain, and ss liquid to r.drain. Patient also has an NG tube that is putting out yellow bile, she is tolerating ice chips well, and using dilaudid for pain and discomfort. She is using the pain medication at longer intervals now. Given a shower and patients states that she feels better, NG tube hooked back up to LIS, and TPN infusing in the 60s/hr. Dr. Ocasio in seeing patient now.
--- NOTE | 2019-12-02 14:28 | CM.DPC ---
DCP Cont: Met with Bettina, hospital collar separator. Discussed patient going home on TPN. She mentioned that she was going to meet with patient, and to verify that if she does go home on TPN, would be cyclic feedings. Stated that she would update this outsole caser after conversing with patient. Bettina came back after discussion with patient. Stated, she has good support, for her friends live next door, and give her any assistance if needed. Patient had been hoping to go home without TPN, but understands that this may be needed. This outsole caser did call [facility], swing bed, just to inquire if they could do TPN at their facility. She stated that [facility] does not accept swing beds. Called [facility], her outsole caser is Dee Nickerson, but was not available today. Left a message with Anel Tobin to discuss benefits. Called Js at [facility]. Stated, [facility] normally does cover TPN home feedings. Let him know that patient would be getting cyclic feedings. He stated, they should be able to accomidate as long as they have the formula. Gave him patient's name, and let Js know that this outsole caser would fax over face sheet, H&P, med sheets, as well as dietary notes. Bettina stated that she just documented her latest note from today showing latest dietary formula. Faxed this over to [facility] with other information. P: DCP to continue to follow. Just received a call back from Anel Tobin at [facility], and she confirmed that they are contracted with [facility]. Will follow up with [facility], and look for when patient is to be discharged home. Jazmin Matos RN/Supervisor [employer] Department
--- NOTE | 2019-12-02 15:54 | PM.PN.1 ---
Subjective Subjective Date Patient Seen: 12/02/19 Time Patient Seen: 16:03 Interval history: No acute events over night. Denies nausea/vomiting. Reports passing flatus today. Feels better today. More energy. Exam Vital Signs (past 8 hours): - 12/02/19 08:00 12/02/19 12:00 Temperature 97.7 F 98.1 F Pulse Rate 100 H 89 Respiratory Rate 18 18 Blood Pressure 134/69 113/68 Pulse Oximetry 97 98 Oxygen Delivery Method Room Air Oxygen Flow Rate 0 Narrative Exam Narrative: Alert, oriented, comfortable, smiling NGT in place to LIWS with serobilious output WILMAR drains in place with serosang from right side (pelvis) drain, and serous from left side (right gutter and mid abdomen) drain Incision c/d/i, no erythema or drainage No LE edema Neuro: no gross abnormalities Psych: upbeat mood; full affect Objective Labs Result Diagrams: 12/01/19 04:45 12/01/19 04:45 Labs: Laboratory Results - last 24 hr 12/02/19 11:50 Vancomycin Trough 11.5 Assessment & Plan Assessment and plan (1) Partial small bowel obstruction: Problem details: Consider SBFT if continues to pass flatus; reglan for nausea and gut motility Current visit: Yes Status: Acute (2) Status post appendectomy: Current visit: No Status: Acute (3) Pelvic abscess: Problem details: Continue IV antibiotics and WILMAR drains; repeat CBC in AM Current visit: Yes Status: Acute (4) On total parenteral nutrition (TPN): Problem details: Continue at 1.5L, work on cycling at night, check CMP tomorrow; lipids every other day Current visit: Yes Status: Acute Assessment & Plan narrative: This is a 64 yo woman who had an appendectomy on 11/13, returned to the hospital with obstruction and leukocystosis, and had an ex-lap on 11/25 with drainage of a pelvic abscess. Since then she has had an NGT in place and TPN. Today she passed flatus for the first time since her follow up surgery. Pain is well controlled. Labs are stable on 1.5L TPN, and she remains on broad spectrum antibiotics. We will consider doing a SBFT tomorrow, and repeat labs. If contrast passes through we will be able to remove the NGT. She asked if she could get something stronger for nausea when she has the SBFT. She was on reglan before which helped her, so we will restart that. Plan: Continue TPN; work on plans to cycle TPN at night NPO NGT to LIWS Continue IV abx, pain meds, antiemetics Ambulate as tolerated WILMAR drain management Daily labs Possible SBFT tomorrow Restart reglan Quality VTE Deep Vein Thrombosis/Pulmonary Embolism Present on Admission: No
[2019-12-02 16:02] VITALS: BP 127/71; PULSE 81; RESP 15; TEMP 36.4; O2SAT 98
[2019-12-02] MEDS: METOCLOPRAMIDE 10 MG/2 ML INJ 5 MG IV (17:52)
[2019-12-02] MEDS: AA 5 %/CALCIUM/LYTES/DEXT 20 % 1,500 ML with MULTIVITAMIN 10 ML, TRACE ELEMENTS 1 ML, I... 63.088 ML IV (17:52)
[2019-12-02 20:31] VITALS: BP 116/71; PULSE 91; RESP 15; TEMP 36.4
[2019-12-03] VITALS (8 sets, daily range): BP systolic 114–124; BP diastolic 60–76; PULSE 80–104; RESP 16–18; TEMP 36.3–37.4; O2SAT 97–100
[2019-12-03] MEDS: METOCLOPRAMIDE 10 MG/2 ML INJ 5 MG IV ×4 (00:26→18:17)
[2019-12-03] MEDS: HYDROMORPHONE 0.5 MG INJ IV ×4 (00:32→21:41)
[2019-12-03] MEDS: metroNIDAZOLE 500 MG/100 ML PIGGYBACK 100 MG IV ×4 (00:51→23:56)
[2019-12-03] MEDS: PIPERACILLIN-TAZO 3.375 GM/50 ML FROZ.PIGGY IV ×4 (02:09→20:08)
[2019-12-03] MEDS: VANCOMYCIN 1,000 MG/200 ML PIGGYBACK 200 MG IV (04:05)
[2019-12-03 05:07] LABS: Add Manual Diff / Slide Review NO; Basophils Absolute Auto 0 /uL (0-100); Basophils Percent Auto 0.5 % (0-2); Eosinophils Absolute Auto 200 /uL (0-450); Eosinophils Percent Auto 3.1 % (2-4); Hematocrit 29.5 % (36-46); Hemoglobin 10.1 g/dL (12.0-16.0); Lymphocytes Absolute Auto 900 /uL (1100-4500); Lymphocytes Percent Auto 14.4 % (25-40); Mean Corpuscular HGB Conc 34.4 % (30-36); Mean Corpuscular Hemoglobin 31.2 PG (26-34); Mean Corpuscular Volume 90.8 fL (80-100); Monocytes Absolute Auto 800 /uL (0-900); Monocytes Percent Auto 12.9 % (3-14); Neutrophils Absolute Auto 4200 /uL (1500-7000); Neutrophils Percent Auto 69.1 % (50-75); Platelet Count 431 X10^3/uL (150-400); Red Blood Cell Count 3.25 X10^6/uL (4.0-5.2); Red Cell Distribution Width 13.7 % (11.6-14.8); White Blood Cell Count 6.1 X10^3/uL (4.5-11.0)
[2019-12-03 05:14] LABS: Alanine Aminotransferase 14 IU/L (<35); Albumin 2.5 g/dL (3.5-5.0); Albumin Globulin Ratio 0.9 (1.0-2.8); Alkaline Phosphatase 56 U/L (38-126); Aspartate Aminotransferase 29 IU/L (14-36); BUN Creatinine Ratio 26.1 (6-22); Bilirubin Total 0.1 mg/dL (0.2-1.3); Blood Urea Nitrogen 12 mg/dL (7-17); Calcium 7.9 mg/dL (8.4-10.2); Carbon Dioxide 27 mmol/L (22-32); Chloride 100 mmol/L (98-107); Estimated Glomerular Filt Rate > 60.0 mL/min (>60); Globulin 2.8 g/dL (1.7-4.1); Glucose 144 mg/dL (80-110); HEMOLYSIS < 15 (0-50); Potassium 3.8 mmol/L (3.4-5.1); Sodium 130 mmol/L (137-145); Total Protein 5.3 g/dL (6.3-8.2)
[2019-12-03 05:19] LABS: Magnesium 2.2 mg/dL (1.6-2.3); Phosphorous 2.9 mg/dL (2.8-4.1)
[2019-12-03] MEDS: INSULIN ASPART 100 UNIT/ML INSULN PEN SUBCUT (06:15)
--- NOTE | 2019-12-03 08:15 | DI.RAD.S_ITS ---
PROCEDURE: XR KUB INDICATIONS: PSBO, interval change TECHNIQUE: One view of the abdomen acquired. COMPARISON: [facility], CR, XR CHEST FOR PICC 1V, 11/26/2019, 14:20. [facility], CR, XR KUB, 11/25/2019, 8:31. FINDINGS: Surgical changes and devices: Nasogastric tube is present overlying the pylorus and proximal duodenal C-loop. Additional tubing is noted overlying the abdomen suspected to be external to the patient. Bowel: Bowel gas pattern has improved with minimal residual appearance of residual obstruction. Soft tissues: No suspicious abdominal calcifications. Visualized solid organ contours appear normal in size. Minimal blunting of the costophrenic angles is noted bilaterally. Bones: No suspicious bony lesions. IMPRESSION: Near complete interval resolution of previous for small bowel obstruction. Dictated by: Crista Clement M.D. on 12/03/2019 at 9:19 Approved by: Crista Clement M.D. on 12/03/2019 at 9:20
--- NOTE | 2019-12-03 08:17 | PM.PN.1 ---
Subjective Subjective Date Patient Seen: 12/03/19 Time Patient Seen: 08:18 Interval history: No acute events overnight. Pt continues to pass flatus. Has nausea with pain med administration. Exam Vital Signs (past 8 hours): - 12/03/19 00:41 12/03/19 05:05 Temperature 98.2 F 98.0 F Pulse Rate 81 86 Respiratory Rate 16 16 Blood Pressure 121/66 118/62 Pulse Oximetry 99 98 Oxygen Delivery Method Room Air Oxygen Flow Rate 0 Narrative Exam Narrative: Alert, oriented, comfortable, smiling NGT in place to LIWS with clear bile tinged output WILMAR drains in place with serosang from right side (pelvis) drain, and serous from left side (right gutter and mid abdomen) drain Incision c/d/i, no erythema or drainage; abdomen mildly distended No LE edema Neuro: no gross abnormalities Psych: upbeat mood; full affect Objective Labs Result Diagrams: 12/03/19 04:45 12/03/19 04:45 Labs: Laboratory Results - last 24 hr 12/02/19 12/03/19 12/03/19 11:50 04:45 04:45 WBC 6.1 RBC 3.25 L Hgb 10.1 L Hct 29.5 L MCV 90.8 MCH 31.2 MCHC 34.4 RDW 13.7 Plt Count 431 H Neut % (Auto) 69.1 Lymph % (Auto) 14.4 L [place] % (Auto) 12.9 Eos % (Auto) 3.1 Baso % (Auto) 0.5 Neut # (Auto) 4200 Lymph # (Auto) 900 L [place] # (Auto) 800 Eos # (Auto) 200 Baso # (Auto) 0 Sodium Potassium Chloride Carbon Dioxide BUN Creatinine Estimated GFR BUN/Creatinine Ratio Glucose Calcium Phosphorus 2.9 Magnesium 2.2 Total Bilirubin AST ALT Alkaline Phosphatase Total Protein Albumin Globulin Albumin/Globulin Ratio Vancomycin Trough 11.5 12/03/19 04:45 WBC RBC Hgb Hct MCV MCH MCHC RDW Plt Count Neut % (Auto) Lymph % (Auto) [place] % (Auto) Eos % (Auto) Baso % (Auto) Neut # (Auto) Lymph # (Auto) [place] # (Auto) Eos # (Auto) Baso # (Auto) Sodium 130 L Potassium 3.8 Chloride 100 Carbon Dioxide 27 BUN 12 Creatinine 0.46 L Estimated GFR > 60.0 BUN/Creatinine Ratio 26.1 H Glucose 144 H Calcium 7.9 L Phosphorus Magnesium Total Bilirubin 0.1 L AST 29 ALT 14 Alkaline Phosphatase 56 Total Protein 5.3 L Albumin 2.5 L Globulin 2.8 Albumin/Globulin Ratio 0.9 L Vancomycin Trough Assessment & Plan Assessment and plan (1) Partial small bowel obstruction: Problem details: Consider SBFT if continues to pass flatus; reglan for nausea and gut motility Current visit: Yes Status: Acute (2) Status post appendectomy: Current visit: No Status: Acute (3) Pelvic abscess: Problem details: Continue IV antibiotics and WILMAR drains; repeat CBC in AM Current visit: Yes Status: Acute (4) On total parenteral nutrition (TPN): Problem details: Continue at 1.5L, work on cycling at night, check CMP tomorrow; lipids every other day Current visit: Yes Status: Acute Assessment & Plan narrative: This is a 64 yo woman who had an appendectomy on 11/13, returned to the hospital with obstruction and leukocystosis, and had an ex-lap on 11/25 with drainage of a pelvic abscess. Since then she has had an NGT in place and TPN. Yesterday she passed flatus for the first time since her second surgery. Pain is well controlled. Labs are stable on 1.5L TPN, and she remains on broad spectrum antibiotics. Her labs look good, and her WBC and left shift have completely resolved. We are seven days from source control with having drained the pelvic abscess on 11/25 in the OR. I will begin removing abx. The patient verbalizes fear about nause with doing a SBFT. We will get a KUB and do a four hour clamping trial of the NGT, and consider SBFT depending on how she does with that. I will add toradol and NC tylenol, and keep dilaudid for breakthrough pain. Plan: Continue TPN; working on plan to cycle TPN at night NPO KUB NGT to LIWS; clamping trial x 4 hours Continue IV abx (Vancomycin DC'ed today) PRN pain meds as above, antiemetics Ambulate as tolerated WILMAR drain management Daily labs COVID-19 COVID-19 status: Negative Result date/Date tested (Pos, Neg/Pending): 11/26/19 Time Spent With Patient Time with patient: 25 - 35 minutes Quality VTE Deep Vein Thrombosis/Pulmonary Embolism Present on Admission: No
[2019-12-03] MEDS: ENOXAPARIN 40 MG/0.4 ML SYRINGE SUBCUT (08:21)
--- NOTE | 2019-12-03 10:46 | CM.DPC ---
DCP Cont: Js from [facility] called regarding patient's co-payment and finances. Stated that she had a deductible on her insurance, could be $2000.00. Patient could have a cost of 980.00 for the first week, and 500.00 after. Patient may have met most of her deductible here in the hospital. He stated that he would discuss with patient. Met with patient after thayer. She is alert and oriented, pleasant. Bettina, plug overwrap machine tender, was also in room. Her NG tube is being clamped today. Patent is optimistic about going home. Discussed TPN, and cost. Stated, She had already spoken to Js at [facility], and feels that it should not be a problem with her insurance, she should have met her deductible. Clarified that she has supportive friends who live next door, if she needs anything. P: DCP to continue to follow and will be available for any needs. If patient does go home on TPN, which seems to be the current plan, she will use [facility]. Will continue to give them update. Jazmin Matos RN/Surgery Scheduling Coordinator
[2019-12-03] MEDS: SODIUM CHLORIDE 0.9% 1,000 ML 60 ML IV (12:26)
--- NOTE | 2019-12-03 12:58 | DI.RAD.S_ITS ---
PROCEDURE: FL SMALL BOWEL FOLLOW THROUGH INDICATIONS: resolving SBO COMPARISON: [facility], CT, CT ABDOMEN PELVIS W CON, 11/22/2019, 12:47. [facility], CR, XR KUB, 12/03/2019, 8:55. [facility], RF, FL SMALL BOWEL FOLLOW THROUGH, 11/23/2019, 9:40. FINDINGS: Tubes and lines: Enteric tube with the tip terminating in the proximal duodenum. Catheters overlying the epigastric region and right pelvis. Ventral abdominal wall staple line. Bowel: There is a rapid transit of Gastrografin contrast through the proximal small bowel. The contrast has reached the rectum at 2 hours. No dilated loops of small bowel seen. No obvious pneumoperitoneum. IMPRESSION: Resolved small bowel obstruction. Dictated by: Lauri Horowitz M.D. on 12/03/2019 at 15:55 Approved by: Lauri Horowitz M.D. on 12/03/2019 at 15:59
[2019-12-03] MEDS: KETOROLAC 15 MG/ML VIAL IV ×2 (13:25→19:30)
--- NOTE | 2019-12-03 14:55 | PT-IP ANOTE ---
Attempted to work w/ pt at 14:55 today, but she refused and asked this CULINARY SPECIALIST to come back later. At 15:30, nursing notified this CULINARY SPECIALIST that pt requested no therapy today d/t fatigue.
[2019-12-03] MEDS: FAT EMULSIONS 50 GM/250 ML EMULSION IV (18:17)
[2019-12-03] MEDS: AA 5 %/CALCIUM/LYTES/DEXT 20 % 1,500 ML with MULTIVITAMIN 10 ML, TRACE ELEMENTS 1 ML, I... 84.118 ML IV (18:17)
--- NOTE | 2019-12-03 18:40 | PC.NURSE ---
NG REMOVED BY DR. KOCH. PATIENT STARTED ON CLEAR LIQUIDS
[2019-12-04] MEDS: KETOROLAC 15 MG/ML VIAL IV ×3 (02:21→16:24)
[2019-12-04] MEDS: PIPERACILLIN-TAZO 3.375 GM/50 ML FROZ.PIGGY IV ×4 (02:23→21:04)
[2019-12-04] MEDS: METOCLOPRAMIDE 10 MG/2 ML INJ 5 MG IV (02:28)
[2019-12-04] MEDS: HYDROMORPHONE 0.5 MG INJ IV ×2 (02:35→08:07)
[2019-12-04 05:00] VITALS: BP 110/64; PULSE 96; RESP 18; TEMP 36.4; O2SAT 97
[2019-12-04 05:06] LABS: Add Manual Diff / Slide Review NO; Basophils Absolute Auto 100 /uL (0-100); Basophils Percent Auto 0.9 % (0-2); Eosinophils Absolute Auto 200 /uL (0-450); Eosinophils Percent Auto 3.1 % (2-4); Hematocrit 29.8 % (36-46); Hemoglobin 10.2 g/dL (12.0-16.0); Lymphocytes Absolute Auto 900 /uL (1100-4500); Lymphocytes Percent Auto 14.8 % (25-40); Mean Corpuscular HGB Conc 34.1 % (30-36); Mean Corpuscular Hemoglobin 31.1 PG (26-34); Mean Corpuscular Volume 91.2 fL (80-100); Monocytes Absolute Auto 900 /uL (0-900); Neutrophils Absolute Auto 3800 /uL (1500-7000); Neutrophils Percent Auto 66.2 % (50-75); Platelet Count 439 X10^3/uL (150-400); Red Blood Cell Count 3.27 X10^6/uL (4.0-5.2); Red Cell Distribution Width 13.8 % (11.6-14.8); White Blood Cell Count 5.8 X10^3/uL (4.5-11.0)
[2019-12-04 07:27] VITALS: BP 126/75; PULSE 99; RESP 18; TEMP 36.3; O2SAT 99
[2019-12-04] MEDS: ENOXAPARIN 40 MG/0.4 ML SYRINGE SUBCUT (07:59)
[2019-12-04] MEDS: SODIUM CHLORIDE 0.9% FLUSH 10 ML IV (08:07)
[2019-12-04] MEDS: metroNIDAZOLE 500 MG/100 ML PIGGYBACK 100 MG IV ×2 (08:45→16:24)
--- NOTE | 2019-12-04 11:11 | PT.IPTN ---
Current Diagnoses Elevated white blood cell count, unspecified (11/22/19) Hypokalemia (11/22/19) Anxiety disorder, unspecified (11/22/19) Partial intestinal obstruction, unspecified as to cause (11/22/19) Unspecified intestinal obstruction, unspecified as to partial versus complete obstruction (11/22/19) Fibromyalgia (11/22/19) Nausea (11/22/19) Diarrhea, unspecified (11/22/19) Other specified health status (11/22/19) Acquired absence of other specified parts of digestive tract (11/22/19) Surgery Performed Operation Date: 11/26/19 20:15 Actual Procedures p Laparoscopy, Diagnostic, converted to laparotomy, takedown adhesions - Orquidea Ocasio MD Physical Therapy Treatment Note M2 PT-IP Current Condition Start: 11/30/19 12:54 Freq: NEEDED Status: Active Protocol: Document 11/30/19 13:50 AW (Rec: 11/30/19 15:29 AW [id number]) Physical Therapy Current Condition Current Condition Evaluation Date 11/30/19 Treatment Diagnosis SBO s/p lysis of adhesions, difficulty in walking Onset Date 11/22/19 Precautions Abdominal Surgery Precautions Log Roll,Lifting Restrictions, Gait Belt above Incisional Area Other Precautions NG tube to intermittent suction; PICC line RUE M3 PT-IP Subjective Start: 11/30/19 12:54 Freq: NEEDED Status: Active Protocol: Document 12/04/19 11:11 AB (Rec: 12/04/19 13:24 AB [id number]) Subjective Physical Therapy Visit Type Type Treatment Note Visit Start Time 11:11 Visit Stop Time 11:32 Total Visit Minutes 21 Number of 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 Visits 0 Physical Therapy Visit Comments Patient Comments pt agreeable to do PT Therapy Pain Assessment Pain When Pain Assessed During Mobility Pain Present Pain Present Pain Reported Location Abdomen Intensity 4 Scale Used Numeric (1 - 10) Description With Movement M4 PT-IP Mobility and Gait Start: 11/30/19 12:54 Freq: NEEDED Status: Active Protocol: Document 12/04/19 11:11 AB (Rec: 12/04/19 13:24 AB [id number]) PT-Bed Mobility Assessment Rolling Level of Assist Independent Supine to Sit Supine to Sit Standby Assistance Sit to Supine Sit to Supine Standby Assistance PT-Transfer Assessment Sit to and From Stand Sit to and from Stand Standby Assistance Equipment Transfer Assistive Device Bed Rail,Front Wheeled Walker Transfers Transfer Destination Chair Transfer Technique ambulated using FWW Transfer Ability Level of Assist Standby Assistance Comments Mobility Comments pt agreeable to do PT. stated that she feels better today. completed bed mobility modified independent. able to put her socks on by herself. ambulated in the hallway using FWW CGA. completed stair climbing SBA. ambulated back to the room FWW CGA. assessed ambulation in room without AD and completed CGA ~ 15 ft. agreed to sit up on chair. call light and table placed within reach. Gait Assessment Gait Gait Assistance Required: Standby Assistance Distance (Feet) 300 Assistive Devices Assistive Device Gait Belt,Front Wheeled Walker Orthotic/Prosthetic Devices or Brace: No Factors Limiting Gait Function Factors Limiting Gait Function Decreased Activity Tolerance, Pain Comments Gait Comments also assessed ambulation without AD CGA ~ 15 ft. pt presents with unsteady gait and recommending continued use of FWW at this time. pt stated that she still feels weak. Stair Climbing Assessment Evaluation Level of Assist On Stairs Standby Assistance Devices Stair Climbing Assistive Devices Left Railing,Right Railing Technique/Endurance Stair Climbing Direction Ascend and Descend Stair Climbing Technique Step Over Step Number of Steps Climbed 3 Stair Climbing Set # Repetitions (reps) 2 Comments Stair Climbing Comments completed up/down steps using L rail ascending SBA and then again with R rail SBA. M5 PT-IP Objective Assessments Start: 11/30/19 12:54 Freq: NEEDED Status: Active Protocol: Document 11/30/19 13:50 AW (Rec: 11/30/19 15:29 AW [id number]) Orientation Orientation/Cognition Level of Alertness Alert Orientation Name,Day of Week,Place, Situation Language Function Ability No Deficits Noted Safety Awareness Understands Safety Issues Memory Description No Deficits Noted Gross Range of Motion Upper Extremity ROM Assessment Within Functional Limits Lower Extremity ROM Assessment Within Functional Limits Strength Upper Extremity Strength Assessment Within Functional Limits Lower Extremity Strength Assessment Bilaterally Impaired Comments Strength Comments 4/5 globally in BLE except hips 4-/5 Coordination Assessment Gross Coordination Gross Coordination WNL Sensation Assessment Sensation Gross Sensation WNL Muscle Tone Muscle Tone WNL Yes M6 PT-IP Treatment Start: 11/30/19 12:54 Freq: NEEDED Status: Active Protocol: Document 12/04/19 11:11 AB (Rec: 12/04/19 13:24 AB [id number]) Physical Therapy Treatment Education Education Provided Safety M7 PT-IP Assessment and Plan Start: 11/30/19 12:54 Freq: NEEDED Status: Active Protocol: Document 12/04/19 11:11 (Rec: 12/04/19 13:24 AB [id number]) PT Summary Assessment and Plan Potential Rehabilitation Potential Good Summary Impairments Pain,ROM,Strength,Balance,Bed Mobility,Transfers,Gait, Activity Tolerance Progress Towards Goals Progressing Toward Goals Assessment Summary pt requiring SBA with mobility . recommending use of FWW at this time. will continue to assess if pt will require FWW for d/c home. Goals Bed Mobility Goal Independent Transfer Goal Independent Gait Goal Independent Gait Distance 300 Other Goals - up/down 3 steps with left rail ascending SBA Days to Meet Goals 5 Frequency of Treatment Frequency Of Treatment Once a Day Treatment Plan Physical Therapy Treatment Plan Bed Mobility Training,Transfer Training,Gait Training, Therapeutic Exercise,Balance Retraining,Post Op Education, Discharge Planning, Neuromuscular Re-ed Recommendations To Nursing Amount of Assist Needed Standby Assistance Discharge Recommendations PT Discharge Recommendations Home with Assistance,Home Health Transportation Needs at Discharge Private Vehicle
--- NOTE | 2019-12-04 13:39 | CM.DPC ---
Addendum entered by Christen Metcalf LPN 12/05/19 09:11: Spoke with Dr. Ocasio yesterday afternoon as I was leaving for the day. She has just seen pt and stated that she was hopeful but not certain that she would not need TPN at d/c. She also said she wanted to make sure that pt was eating and tolerating solid foods well before she released her from the hospital. Original Note: DCP: continued: Case received and followed up on the dc planning note of yesterday. EMR reveiwed and then met with pt. She confirmed that she did talk with [facility] re the plan for home on TPN if needed. She states that she did talk again with Dr. Ocasio (her note from today is not yet available) and that Dr. Ocasio anticipated that pt would likely now not neet TPN IF she continued to progress as hoped. At this point she said the surgeon anticipated a d/c for perhaps Saturday. PT is continuing to see pt and pt notes she is feeling much better. Her plan continues to be home setting where she does live alone but very good friends who can help her prn are in the neighborhood. DCP team will continue to follow. [facility] has been updated.
--- NOTE | 2019-12-04 14:36 | P.PN_ITS ---
Subjective Subjective Date Patient Seen: 12/04/19 Time Patient Seen: 08:30 Interval history: No acute events overnight. The patient has tolerated some clears, and is passing gas and stool. She denies nausea, vomiting or fevers. Exam Vital Signs (past 8 hours): - 12/04/19 07:27 Temperature 97.3 F L Pulse Rate 99 H Respiratory Rate 18 Blood Pressure 126/75 Pulse Oximetry 99 Oxygen Delivery Method Room Air Oxygen Flow Rate 0 Narrative Exam Narrative: Alert, oriented, comfortable, smiling WILMAR drains in place with serosang from right side (pelvis) drain, and serous from left side (right gutter and mid abdomen) drain Incision c/d/i, no erythema or drainage; abdomen soft and nondistended No LE edema Neuro: no gross abnormalities Psych: upbeat mood; full affect Objective Imaging Abdominal x-ray: My impression: SBFT: normal; no dilated small bowel Radiologist's impression: SBFT: normal Labs Result Diagrams: 12/04/19 04:40 12/03/19 04:45 Labs: Laboratory Results - last 24 hr 12/04/19 04:40 WBC 5.8 RBC 3.27 L Hgb 10.2 L Hct 29.8 L MCV 91.2 MCH 31.1 MCHC 34.1 RDW 13.8 Plt Count 439 H Neut % (Auto) 66.2 Lymph % (Auto) 14.8 L [place] % (Auto) 15.0 H Eos % (Auto) 3.1 Baso % (Auto) 0.9 Neut # (Auto) 3800 Lymph # (Auto) 900 L [place] # (Auto) 900 Eos # (Auto) 200 Baso # (Auto) 100 Assessment & Plan Assessment and plan (1) On total parenteral nutrition (TPN): Problem details: Continue at 1.5L, work on cycling at night, check CMP tomorrow; lipids every other day; will consider weaning off if pt tolerates full liquid diet; check weight today Current visit: Yes Status: Acute (2) Pelvic abscess: Problem details: DC'ed vancomycin yesterday. WBC remains normal. Will DC flagyl today. Continue IV zosyn and WILMAR drains; repeat CBC in AM Current visit: Yes Status: Acute (3) Partial small bowel obstruction: Problem details: SBFT was normal; NGT was removed; advancing to full liquids today Current visit: Yes Status: Acute (4) Status post appendectomy: Problem details: This is a 64 yo woman with resolving PSBO and pelvic abscess s/p perforated appendicitis. She is gradually improving. At this point, we are gradually adva ncing her diet as tolerated and discontinuing antibiotics as we have had one week of source control and normal WBC. If she tolerates adequate PO for nutrition and hydration we will wean off her TPN. Plan: Continue TPN cycled at night; consider weaning off if tolerates full liquid diet Continue IV zosyn (Flagyl DC'ed today) PRN pain meds, antiemetics Ambulate as tolerated WILMAR drain management Daily cbc Current visit: No Status: Acute Quality VTE Deep Vein Thrombosis/Pulmonary Embolism Present on Admission: No
[2019-12-04 15:55] VITALS: BP 117/74; PULSE 98; RESP 18; TEMP 37.1; O2SAT 98
--- NOTE | 2019-12-04 16:20 | DIET.PN ---
Dietary Progress Note RD f/u pt tolerating clears, pt notified me she is lactose intolerant, can tolerate yogurts. At home, pt eats whole foods, organic diet c focus on anti-inflammatory foods likely helping her to recover while inpatient. Discussed need for adequate kcals and pro when discharged if not on TPN and thereafter. Pt confident that as long as her system tolerates it she will be able to consume adequate nourishments with daily yogurt, soymilk, and advancing to her normal diet of lean protein, fruits and vegetables. Pt inquiring about smoothies, when frozen blueberries can be allowed. Pt understands need to go slow with diet and willing to comply. Pt has lost 1kg since admit, has good strength, as well as positive outlook. Recc continuing TPN until fully tolerating full liquid diet. HT: 162.5cm WT: 57kg (-1kg since admit) BMI: 21.6 MNA: 13 Gio: 22 Nutrition Diagnosis: Altered GI function (dense adhesions and abscess s/p perforated appendix) r/t complicated surgical course aeb pt meeting <50% EER for 5d, pts return of bowel function projected to take 4-12w, borderline BMI for age of 23.0. Interventions: Recc 16hr nocturnal ([id number]) cyclic feeding of Clinimix 5/20 via PICC line with goal rate of 93mL/h providing 1530 kcals (meets 98% of needs), 64g PRO (meets 91% of needs) and 1.5L fluids (meets 83% of needs), c 250mL 20% lipids on M, W, F. First and last hour of feeding at 50% rate (45mL/h). Please note pt requires additional 300mL free water/d to meet hydration needs. Diet Order: NPO EER: 1550kcal, 70g PRO (1.2g/kg to promote healing), 1800mL fluids (31mL/kg)
[2019-12-04] MEDS: OXYCODONE IR 10 MG TABLET PO (17:18)
[2019-12-04] MEDS: AA 5 %/CALCIUM/LYTES/DEXT 20 % 1,500 ML with MULTIVITAMIN 10 ML, TRACE ELEMENTS 1 ML, I... 84 ML IV (18:17)
--- NOTE | 2019-12-04 18:29 | PC.NURSE ---
Patient is a&o x4, pleasant and cooperative w/ staff, able to make needs known when nec. Indep. moving in room with no assistance. TPN is set to run cyclic and started at 42/hr for first hour, it is to be increased to 84/hr for the next 17 hours and then decreased again to 42/hr for the last hour of infusion. Details are noted in Dietary's prog note for reference. Pt. reports pain 3/10 and states not nauseated but over all not feeling well. Call light w/ in reach.
[2019-12-04 20:13] VITALS: BP 124/69; PULSE 78; RESP 18; TEMP 36.7; O2SAT 99
[2019-12-04] MEDS: OXYCODONE IR 5 MG TABLET PO (21:13)
[2019-12-04 23:59] VITALS: BP 119/64; PULSE 95; RESP 16; TEMP 36.2; O2SAT 98
[2019-12-05] MEDS: PIPERACILLIN-TAZO 3.375 GM/50 ML FROZ.PIGGY IV ×2 (01:54→08:11)
[2019-12-05] MEDS: OXYCODONE IR 5 MG TABLET PO ×4 (02:05→21:04)
[2019-12-05 05:00] VITALS: BP 110/70; PULSE 100; RESP 16; TEMP 36.8; O2SAT 97
[2019-12-05 05:24] LABS: Add Manual Diff / Slide Review NO; Basophils Absolute Auto 100 /uL (0-100); Basophils Percent Auto 1.3 % (0-2); Eosinophils Absolute Auto 200 /uL (0-450); Eosinophils Percent Auto 3.4 % (2-4); Hematocrit 29.8 % (36-46); Hemoglobin 10.2 g/dL (12.0-16.0); Lymphocytes Absolute Auto 800 /uL (1100-4500); Lymphocytes Percent Auto 14.8 % (25-40); Mean Corpuscular HGB Conc 34.2 % (30-36); Mean Corpuscular Hemoglobin 31.2 PG (26-34); Mean Corpuscular Volume 91.2 fL (80-100); Monocytes Absolute Auto 800 /uL (0-900); Monocytes Percent Auto 14.5 % (3-14); Neutrophils Absolute Auto 3700 /uL (1500-7000); Platelet Count 418 X10^3/uL (150-400); Red Blood Cell Count 3.26 X10^6/uL (4.0-5.2); Red Cell Distribution Width 14.3 % (11.6-14.8); White Blood Cell Count 5.6 X10^3/uL (4.5-11.0)
[2019-12-05 05:30] LABS: BUN Creatinine Ratio 28.6 (6-22); Blood Urea Nitrogen 16 mg/dL (7-17); Calcium 8.2 mg/dL (8.4-10.2); Carbon Dioxide 28 mmol/L (22-32); Chloride 101 mmol/L (98-107); Estimated Glomerular Filt Rate > 60.0 mL/min (>60); Glucose 133 mg/dL (80-110); HEMOLYSIS < 15 (0-50); Magnesium 2.1 mg/dL (1.6-2.3); Phosphorous 2.9 mg/dL (2.8-4.1); Potassium 3.8 mmol/L (3.4-5.1); Sodium 134 mmol/L (137-145)
[2019-12-05] MEDS: INSULIN ASPART 100 UNIT/ML INSULN PEN SUBCUT (05:46)
--- NOTE | 2019-12-05 06:24 | PC.NURSE ---
Pt is doing well; in good spirits, very pleasant. Passing gas; active bowel tones. No BM this shift. Denies nausea TPN@84mL/hr thru double lumen PICC Tolerating full liquid diet Fingerstick q6h Mario drains with minimal output Oxycodone 5mg given for some abdominal pain Ambulating in room
--- NOTE | 2019-12-05 07:43 | PC.NURSE ---
Addendum entered by Ofe Reeves R.N. 12/05/19 14:57: Tolerated ensure enilve chocolate drink, beef broth. Minimal abd discomfort. Ambulating in halls with SBA, tolerated well. Cyclic TPN rate decreased from 84mls/hr to 42mls/hr for last 1 hour of infusion. HOMAR PICC dressing changed by CHELLY Gaviria. Flushes well with brisk blood return. Heparin flush per protocol. Original Note: Day shift- Per Dr. Ocasio at 0720, pt okay to have scrambled eggs and mashed potatoes with gravy at meal times on top of her full liquid diet order. Spoke with Dietary in kitchen.
[2019-12-05] MEDS: ENOXAPARIN 40 MG/0.4 ML SYRINGE SUBCUT (08:10)
[2019-12-05] MEDS: SODIUM CHLORIDE 0.9% FLUSH 10 ML IV ×2 (08:12→14:30)
--- NOTE | 2019-12-05 08:18 | PM.PN.1 ---
Subjective Subjective Date Patient Seen: 12/05/19 Time Patient Seen: 06:30 Interval history: No acute events overnight. Tolerating a small amount of PO clears and fulls. Exam Vital Signs (past 8 hours): - 12/05/19 05:00 Temperature 98.3 F Pulse Rate 100 H Respiratory Rate 16 Blood Pressure 110/70 Pulse Oximetry 97 Oxygen Delivery Method Room Air Oxygen Flow Rate 0 Narrative Exam Narrative: Alert, oriented, comfortable, smiling WILMAR drains in place with serosang from right side (pelvis) drain, and serous from left side (right gutter and mid abdomen) drain Incision c/d/i, no erythema or drainage; abdomen soft, slightly distended No LE edema Neuro: no gross abnormalities Psych: upbeat mood; full affect Objective Labs Result Diagrams: 12/05/19 05:01 12/05/19 05:01 Labs: Laboratory Results - last 24 hr 12/05/19 12/05/19 05:01 05:01 WBC 5.6 RBC 3.26 L Hgb 10.2 L Hct 29.8 L MCV 91.2 MCH 31.2 MCHC 34.2 RDW 14.3 Plt Count 418 H Neut % (Auto) 66.0 Lymph % (Auto) 14.8 L [place] % (Auto) 14.5 H Eos % (Auto) 3.4 Baso % (Auto) 1.3 Neut # (Auto) 3700 Lymph # (Auto) 800 L [place] # (Auto) 800 Eos # (Auto) 200 Baso # (Auto) 100 Sodium 134 L Potassium 3.8 Chloride 101 Carbon Dioxide 28 BUN 16 Creatinine 0.56 Estimated GFR > 60.0 BUN/Creatinine Ratio 28.6 H Glucose 133 H Calcium 8.2 L Phosphorus 2.9 Magnesium 2.1 Assessment & Plan Assessment and plan (1) Partial small bowel obstruction: Problem details: ADAT Current visit: Yes Status: Acute (2) Status post appendectomy: Problem details: Resolving PSBO and pelvic abscess s/p perforated appendicitis. Gradually improving. We are gradually advancing her diet as tolerated and discontinuing antibiotics as we have had one week of source control and normal WBC. If she tolerates adequate PO for nutrition and hydration we will wean off her TPN. Plan: Continue TPN cycled at night; consider weaning off if tolerates full liquid diet Continue IV zosyn (Flagyl CO'ed today) PRN pain meds, antiemetics Ambulate as tolerated WILMAR drain management Daily cbc Current visit: No Status: Acute (3) Pelvic abscess: Problem details: DC'ed vancomycin and flagyl. Will DC zosyn today, and keep WILMAR drains; repeat CBC in AM Current visit: Yes Status: Acute (4) On total parenteral nutrition (TPN): Problem details: Continue at 1.5L, cycling at night; lipids every other day; will consider weaning off if pt tolerates full liquid diet Current visit: Yes Status: Acute Assessment & Plan narrative: This is a 64 yo woman who had an appendectomy on 11/13, returned to the hospital with obstruction and leukocystosis, and had an ex-lap on 11/25 with drainage of a pelvic abscess. Since then she has had an NGT in place and TPN. Yesterday she passed flatus for the first time since her second surgery. Pain is well controlled. Labs are stable on 1.5L TPN, and she remains on broad spectrum antibiotics. Her labs look good, and her WBC and left shift have completely resolved. We are seven days from source control with having drained the pelvic abscess on 11/25 in the OR. We have begun removing abx and advancing diet. Plan: Advance diet as tolerated Continue TPN until tolerating adequate PO Continue weaning IV abx PRN pain meds as above, antiemetics Ambulate as tolerated WILMAR drain management COVID-19 COVID-19 status: Negative Result date/Date tested (Pos, Neg/Pending): 11/26/19 Time Spent With Patient Time with patient: 25 - 35 minutes Quality VTE Deep Vein Thrombosis/Pulmonary Embolism Present on Admission: No
[2019-12-05 08:26] VITALS: BP 125/65; PULSE 95; RESP 16; TEMP 37.3; O2SAT 98
[2019-12-05 11:15] VITALS: BP 116/70; PULSE 100; RESP 16; TEMP 37.5; O2SAT 96
--- NOTE | 2019-12-05 11:30 | PT.IPTN ---
Current Diagnoses Elevated white blood cell count, unspecified (11/22/19) Hypokalemia (11/22/19) Anxiety disorder, unspecified (11/22/19) Partial intestinal obstruction, unspecified as to cause (11/22/19) Unspecified intestinal obstruction, unspecified as to partial versus complete obstruction (11/22/19) Fibromyalgia (11/22/19) Nausea (11/22/19) Diarrhea, unspecified (11/22/19) Other specified health status (11/22/19) Acquired absence of other specified parts of digestive tract (11/22/19) Surgery Performed Operation Date: 11/26/19 20:15 Actual Procedures p Laparoscopy, Diagnostic, converted to laparotomy, takedown adhesions - Orquidea Ocasio MD Physical Therapy Treatment Note M2 PT-IP Current Condition Start: 11/30/19 12:54 Freq: NEEDED Status: Active Protocol: Document 11/30/19 13:50 AW (Rec: 11/30/19 15:29 AW [id number]) Physical Therapy Current Condition Current Condition Evaluation Date 11/30/19 Treatment Diagnosis SBO s/p lysis of adhesions, difficulty in walking Onset Date 11/22/19 Precautions Abdominal Surgery Precautions Log Roll,Lifting Restrictions, Gait Belt above Incisional Area Other Precautions NG tube to intermittent suction; PICC line RUE M3 PT-IP Subjective Start: 11/30/19 12:54 Freq: NEEDED Status: Active Protocol: Document 12/05/19 11:30 AB (Rec: 12/05/19 12:59 AB [id number]) Subjective Physical Therapy Visit Type Type Treatment Note Visit Start Time 11:30 Visit Stop Time 11:43 Total Visit Minutes 13 Number of SHAREPOINT APPLICATION DEVELOPER Visits 0 Physical Therapy Visit Comments Patient Comments agreeable to do PT Therapy Pain Assessment Pain When Pain Assessed During Mobility Pain Present Pain Present Pain Reported Location Abdomen Intensity 3 Scale Used Numeric (1 - 10) M4 PT-IP Mobility and Gait Start: 11/30/19 12:54 Freq: NEEDED Status: Active Protocol: Document 12/05/19 11:30 AB (Rec: 12/05/19 12:59 AB [id number]) PT-Transfer Assessment Sit to and From Stand Sit to and from Stand Standby Assistance Equipment Transfer Assistive Device None Orthotic/Prosthetic Devices or Brace: No Transfers Transfer Destination Bed Transfer Ability Level of Assist Standby Assistance Gait Assessment Gait Gait Assistance Required: Standby Assistance Distance (Feet) 600 Able to Maintain Weight Bearing Status Yes During Gait Assistive Devices Assistive Device Gait Belt,Front Wheeled Walker Orthotic/Prosthetic Devices or Brace: No Factors Limiting Gait Function Factors Limiting Gait Function Decreased Activity Tolerance, Decreased Strength,Pain Comments Gait Comments pt seen walking with NAC and PT took over. pt seems steadier today and ambulated ~ 600 ft using FWW SBA. pt completed up/down steps using 1 rail SBA. pt ambulated back to her room. rested for a few minutes. PT assessed ambulation without AD and completed ~ 15 ft SBA. pt has her shoes on today and stated that it helps with her balance since she is flat footed. pt requested to go back to bed afterwards and positioned call light within reach. Stair Climbing Assessment Evaluation Level of Assist On Stairs Standby Assistance Devices Stair Climbing Assistive Devices None,Left Railing,Right Railing Technique/Endurance Stair Climbing Direction Ascend and Descend Stair Climbing Technique Step Over Step Number of Steps Climbed 3 Stair Climbing Set # Repetitions (reps) 2 Comments Stair Climbing Comments completed up/down steps using L rail on first set and then R rail on 2nd set requiring SBA M5 PT-IP Objective Assessments Start: 11/30/19 12:54 Freq: NEEDED Status: Active Protocol: Document 11/30/19 13:50 AW (Rec: 11/30/19 15:29 AW [id number]) Orientation Orientation/Cognition Level of Alertness Alert Orientation Name,Day of Week,Place, Situation Language Function Ability No Deficits Noted Safety Awareness Understands Safety Issues Memory Description No Deficits Noted Gross Range of Motion Upper Extremity ROM Assessment Within Functional Limits Lower Extremity ROM Assessment Within Functional Limits Strength Upper Extremity Strength Assessment Within Functional Limits Lower Extremity Strength Assessment Bilaterally Impaired Comments Strength Comments 4/5 globally in BLE except hips 4-/5 Coordination Assessment Gross Coordination Gross Coordination WNL Sensation Assessment Sensation Gross Sensation WNL Muscle Tone Muscle Tone WNL Yes M6 PT-IP Treatment Start: 11/30/19 12:54 Freq: NEEDED Status: Active Protocol: Document 12/04/19 11:11 AB (Rec: 12/04/19 13:24 AB [id number]) Physical Therapy Treatment Education Education Provided Safety M7 PT-IP Assessment and Plan Start: 05/11/20 12:54 Freq: NEEDED Status: Active Protocol: Document 12/05/19 11:30 AB (Rec: 12/05/19 12:59 AB [id number]) PT Summary Assessment and Plan Potential Rehabilitation Potential Good Summary Impairments Pain,ROM,Strength,Balance,Bed Mobility,Transfers,Gait, Activity Tolerance Progress Towards Goals Progressing Toward Goals Assessment Summary pt requiring SBA with mobility using FWW. PT is steadier with ambulation today and able to ambulate without AD SBA ~ 15 ft in room. will continue to benefit from PT for ambulation training without AD to improve activity tolerance . Goals Bed Mobility Goal Independent Transfer Goal Independent Gait Goal Independent Gait Distance 300 Other Goals - up/down 3 steps with left rail ascending SBA Days to Meet Goals 5 Frequency of Treatment Frequency Of Treatment Once a Day Treatment Plan Physical Therapy Treatment Plan Bed Mobility Training,Transfer Training,Gait Training, Therapeutic Exercise,Balance Retraining,Post Op Education, Discharge Planning, Neuromuscular Re-ed Other Recommendations and Next Treatment ambulation without AD Focus Recommendations To Nursing Amount of Assist Needed Standby Assistance Discharge Recommendations PT Discharge Recommendations Home with Assistance,Home Health Transportation Needs at Discharge Private Vehicle
[2019-12-05 15:38] VITALS: BP 124/65; PULSE 103; RESP 18; TEMP 36.2; O2SAT 97
[2019-12-05] MEDS: AA 5 %/CALCIUM/LYTES/DEXT 20 % 1,500 ML with MULTIVITAMIN 10 ML, TRACE ELEMENTS 1 ML, I... 42 ML IV (18:01)
[2019-12-05 19:58] VITALS: BP 117/65; PULSE 92; RESP 18; TEMP 36.3; O2SAT 96
[2019-12-05] MEDS: ACETAMINOPHEN 325 MG TABLET 650 MG PO (21:03)
[2019-12-05 23:56] VITALS: BP 117/65; PULSE 98; RESP 18; TEMP 36.6; O2SAT 99
[2019-12-06] MEDS: OXYCODONE IR 5 MG TABLET PO ×3 (05:23→22:35)
[2019-12-06] MEDS: ACETAMINOPHEN 325 MG TABLET 650 MG PO ×4 (05:24→23:40)
[2019-12-06 05:30] VITALS: BP 115/72; PULSE 90; RESP 18; TEMP 36.5; O2SAT 99
[2019-12-06 05:42] LABS: Add Manual Diff / Slide Review NO; Basophils Absolute Auto 100 /uL (0-100); Basophils Percent Auto 1.3 % (0-2); Eosinophils Absolute Auto 200 /uL (0-450); Eosinophils Percent Auto 4.8 % (2-4); Hematocrit 30.4 % (36-46); Hemoglobin 10.3 g/dL (12.0-16.0); Lymphocytes Absolute Auto 1100 /uL (1100-4500); Mean Corpuscular HGB Conc 33.8 % (30-36); Mean Corpuscular Volume 91.7 fL (80-100); Monocytes Absolute Auto 800 /uL (0-900); Monocytes Percent Auto 15.4 % (3-14); Neutrophils Absolute Auto 2900 /uL (1500-7000); Neutrophils Percent Auto 56.5 % (50-75); Platelet Count 424 X10^3/uL (150-400); Red Blood Cell Count 3.31 X10^6/uL (4.0-5.2); Red Cell Distribution Width 14.3 % (11.6-14.8); White Blood Cell Count 5.1 X10^3/uL (4.5-11.0)
[2019-12-06] MEDS: INSULIN ASPART 100 UNIT/ML INSULN PEN SUBCUT (05:46)
--- NOTE | 2019-12-06 08:13 | P.PN_ITS ---
Subjective Subjective Date Patient Seen: 12/06/19 Time Patient Seen: 08:13 Interval history: No acute events overnight. Pt passing gas and stool. Tolerating PO smoothie this morning. Pain well controlled with PO tylenol and Oxycodone. Exam Vital Signs (past 8 hours): - 12/06/19 05:30 Temperature 97.7 F Pulse Rate 90 Respiratory Rate 18 Blood Pressure 115/72 Pulse Oximetry 99 Oxygen Delivery Method Room Air Oxygen Flow Rate 0 Narrative Exam Narrative: Alert, oriented, comfortable, smiling WILMAR drains in place with serosang from right side (pelvis) drain, and serous from left side (right gutter and mid abdomen) drain Incision c/d/i, no erythema or drainage; abdomen soft, slightly distended No LE edema Neuro: no gross abnormalities Psych: upbeat mood; full affect Objective Labs Result Diagrams: 12/06/19 05:10 12/05/19 05:01 Labs: Laboratory Results - last 24 hr 12/06/19 05:10 WBC 5.1 RBC 3.31 L Hgb 10.3 L Hct 30.4 L MCV 91.7 MCH 31.0 MCHC 33.8 RDW 14.3 Plt Count 424 H Neut % (Auto) 56.5 Lymph % (Auto) 22.0 L Burnett % (Auto) 15.4 H Eos % (Auto) 4.8 H Baso % (Auto) 1.3 Neut # (Auto) 2900 Lymph # (Auto) 1100 Burnett # (Auto) 800 Eos # (Auto) 200 Baso # (Auto) 100 Assessment & Plan Assessment and plan (1) Partial small bowel obstruction: Problem details: ADAT Current visit: Yes Status: Acute (2) Status post appendectomy: Problem details: Resolving PSBO and pelvic abscess s/p perforated appendicitis. Antibiotics are off and WBC remains normal. Advancing diet. No longer needs TPN. Will not reorder TPN today. Dispo planning for tomorrow if pt continues to do well. Plan: DC TPN PRN oxy, scheduled tylenol Ambulate as tolerated WILMAR drain management advance diet as tolerated to low residual Metamucil BID Current visit: No Status: Acute (3) Pelvic abscess: Problem details: DC'ed all abx; keep WILMAR drains; will plan to remove left drain later today or tomorrow and keep right side drain for home; repeat CBC in AM Current visit: Yes Status: Acute (4) On total parenteral nutrition (TPN): Problem details: Run current bag until noon, then not reordered for tonight Current visit: Yes Status: Acute Assessment & Plan narrative: This is a 64 yo woman who had an appendectomy on 11/13, returned to the hospital with obstruction and leukocystosis, and had an ex-lap on 11/25 with drainage of a pelvic abscess. She has progressed to being off antibiotics after one week of source control. She is tolerating small amounts of liquid and solid PO and passing gas and stool. Labs are stable with normal WBC and no left shift. Electrolytes stable on yesterday's check. Not rechecked today. Plan: Advance diet as tolerated DC TPN Off abx PRN pain meds as above Ambulate as tolerated WILMAR drain management; will remove left WILMAR drain later today or tomorrow Dispo planning for tomorrow pending tolerance of the above, and adequate PO intake COVID-19 COVID-19 status: Negative Result date/Date tested (Pos, Neg/Pending): 11/26/19 Time Spent With Patient Time with patient: 25 - 35 minutes Quality VTE Deep Vein Thrombosis/Pulmonary Embolism Present on Admission: No
[2019-12-06 09:00] VITALS: BP 124/77; PULSE 104; RESP 18; TEMP 36.8; O2SAT 99
[2019-12-06] MEDS: PSYLLIUM HUSK 1 PACKET PO ×2 (09:00→20:36)
[2019-12-06] MEDS: ENOXAPARIN 40 MG/0.4 ML SYRINGE SUBCUT (09:00)
--- NOTE | 2019-12-06 13:16 | PT.IPTN ---
Current Diagnoses Elevated white blood cell count, unspecified (11/22/19) Hypokalemia (11/22/19) Anxiety disorder, unspecified (11/22/19) Partial intestinal obstruction, unspecified as to cause (11/22/19) Unspecified intestinal obstruction, unspecified as to partial versus complete obstruction (11/22/19) Fibromyalgia (11/22/19) Nausea (11/22/19) Diarrhea, unspecified (11/22/19) Other specified health status (11/22/19) Acquired absence of other specified parts of digestive tract (11/22/19) Surgery Performed Operation Date: 11/26/19 20:15 Actual Procedures p Laparoscopy, Diagnostic, converted to laparotomy, takedown adhesions - Orquidea Ocasio MD Physical Therapy Treatment Note M2 PT-IP Current Condition Start: 11/30/19 12:54 Freq: NEEDED Status: Active Protocol: Document 11/30/19 13:50 AW (Rec: 11/30/19 15:29 AW [id number]) Physical Therapy Current Condition Current Condition Evaluation Date 11/30/19 Treatment Diagnosis SBO s/p lysis of adhesions, difficulty in walking Onset Date 11/22/19 Precautions Abdominal Surgery Precautions Log Roll,Lifting Restrictions, Gait Belt above Incisional Area Other Precautions NG tube to intermittent suction; PICC line RUE M3 PT-IP Subjective Start: 11/30/19 12:54 Freq: NEEDED Status: Active Protocol: Document 12/06/19 13:00 AW (Rec: 12/06/19 13:16 AW [id number]) Subjective Physical Therapy Visit Type Type Treatment Note Visit Start Time 12:12 Visit Stop Time 12:31 Total Visit Minutes 19 Number of COMMUNICATION SPECIALIST Visits 0 Physical Therapy Visit Comments Patient Comments agreeable to do PT Therapy Pain Assessment Pain When Pain Assessed During Mobility Pain Present Pain Present Denied Pain Location Abdomen Intensity 3 Scale Used Numeric (1 - 10) Description With Movement Pain Management Techniques Timing of Activity with Medications M4 PT-IP Mobility and Gait Start: 11/30/19 12:54 Freq: NEEDED Status: Active Protocol: Document 12/06/19 13:00 AW (Rec: 12/06/19 13:16 AW [id number]) PT-Transfer Assessment Sit to and From Stand Sit to and from Stand Standby Assistance Equipment Transfer Assistive Device None Orthotic/Prosthetic Devices or Brace: No Transfers Transfer Destination Bed,Chair,Toilet Transfer Technique ambulated with IV pole support and without AD Transfer Ability Level of Assist Standby Assistance Comments Mobility Comments Pt sitting up in bed upon PT arrival. She requested to use the toilet, transferred with IV pole support SBA to and from the toilet. Pt then participated in gait training in the hallway before returning to the room where she transferred to the bed and then to the chair for 5 Time Sit to Stand test. Pt was left sitting in the chair with call light and all needs within reach. Gait Assessment Gait Gait Assistance Required: Standby Assistance Distance (Feet) 600 Able to Maintain Weight Bearing Status Yes During Gait Assistive Devices Assistive Device Gait Belt Orthotic/Prosthetic Devices or Brace: No Gait Deviations General Gait Pattern Antalgic,Decreased Stride Length,Flexed Trunk Factors Limiting Gait Function Factors Limiting Gait Function Decreased Activity Tolerance, Decreased Strength,Pain Comments Gait Comments Pt ambulated with shoes donned 500 feet with IV pole support and then another 100 feet without AD SBA. Pt reports increased abd pain with deeper breathing as ambulation distance progresses. Discussed breathing strategies and gentle diaphragmatic breathing with the pt who verbalized good understanding from a yoga perspective. Stair Climbing Assessment Evaluation Level of Assist On Stairs Standby Assistance Devices Stair Climbing Assistive Devices None,Left Railing,Right Railing Technique/Endurance Stair Climbing Direction Ascend and Descend Stair Climbing Technique Step Over Step Number of Steps Climbed 3 Stair Climbing Set # Repetitions (reps) 2 Comments Stair Climbing Comments completed up/down steps using L rail on first set and then R rail on 2nd set requiring SBA PT-Balance Assessment Sitting Balance and Reactions Dynamic Sitting Balance Ability Good Comments Other Balance Tests/Deviations/Treatment Pt able to don shoes and socks : independently sitting EOB Functional Assessments Functional Tests 5 Times Sit to Stand 15 seconds with arms across chest M5 PT-IP Objective Assessments Start: 11/30/19 12:54 Freq: NEEDED Status: Active Protocol: Document 11/30/19 13:50 AW (Rec: 11/30/19 15:29 AW [id number]) Orientation Orientation/Cognition Level of Alertness Alert Orientation Name,Day of Week,Place, Situation Language Function Ability No Deficits Noted Safety Awareness Understands Safety Issues Memory Description No Deficits Noted Gross Range of Motion Upper Extremity ROM Assessment Within Functional Limits Lower Extremity ROM Assessment Within Functional Limits Strength Upper Extremity Strength Assessment Within Functional Limits Lower Extremity Strength Assessment Bilaterally Impaired Comments Strength Comments 4/5 globally in BLE except hips 4-/5 Coordination Assessment Gross Coordination Gross Coordination WNL Sensation Assessment Sensation Gross Sensation WNL Muscle Tone Muscle Tone WNL Yes M6 PT-IP Treatment Start: 11/30/19 12:54 Freq: NEEDED Status: Active Protocol: Document 12/06/19 13:00 AW (Rec: 12/06/19 13:16 AW [id number]) Physical Therapy Treatment Education Education Provided Safety Other Treatments Other Treatment Performed Discussed diaphragmatic breathing practice with pt who is well familiar with the concept from her own yoga practice. M7 PT-IP Assessment and Plan Start: 11/30/19 12:54 Freq: NEEDED Status: Active Protocol: Document 12/06/19 13:00 AW (Rec: 12/06/19 13:16 AW [id number]) PT Summary Assessment and Plan Potential Rehabilitation Potential Good Summary Impairments Pain,ROM,Strength,Balance,Bed Mobility,Transfers,Gait, Activity Tolerance Progress Towards Goals Progressing Toward Goals Assessment Summary Pt requiring SBA for ambulation with IV pole support and without AD. Performance was improved with shoes donned. Activity tolerance appears to be improving. Pt participated in 5 Time Sit to Stand with score of 15 seconds. PT encouraged the pt to continue practicing 5TSTS whenever she gets out of the bed or chair. Pt states she feels most confident with the FWW at this time and would like to use one at home; PT agrees. Goals Bed Mobility Goal Independent Transfer Goal Independent Gait Goal Independent Gait Distance 300 Other Goals - up/down 3 steps with left rail ascending SBA Days to Meet Goals 3 Frequency of Treatment Frequency Of Treatment Once a Day Treatment Plan Physical Therapy Treatment Plan Bed Mobility Training,Transfer Training,Gait Training, Therapeutic Exercise,Balance Retraining,Post Op Education, Discharge Planning, Neuromuscular Re-ed Other Recommendations and Next Treatment ambulation without AD Focus Recommendations To Nursing Amount of Assist Needed Standby Assistance Discharge Recommendations PT Discharge Recommendations Home with Assistance,Home Health Equipment Needed for Home Before FWW Discharge Transportation Needs at Discharge Private Vehicle
[2019-12-06 14:00] VITALS: BP 106/66; PULSE 87; RESP 16; TEMP 36.6; O2SAT 98
--- NOTE | 2019-12-06 14:11 | PC.NURSE ---
Day shift note: Patient awake, alert, and pleasantly calm. Tolerating full liquid diet, no N/V. X 2 small BM, soft/liquid this shift. Passing flatus. Active BS. Scant amount to both WILMAR drains, serousanguinous to right, serous to left. TPN infusing, BG 117 mg/dl, no coverage needed. Pain controlled with scheduled Tylenol, required Oxycodone for breakthrough pain once this shift. Calls appropriately for staff assistance.
[2019-12-06 15:26] VITALS: BP 107/71; PULSE 88; RESP 16; TEMP 36.5; O2SAT 98
[2019-12-06 19:36] VITALS: BP 108/60; PULSE 88; RESP 16; TEMP 36.2; O2SAT 98
[2019-12-06 23:30] VITALS: BP 117/76; PULSE 99; RESP 18; TEMP 36.9; O2SAT 96
[2019-12-07 04:35] VITALS: BP 115/65; PULSE 94; RESP 16; TEMP 36.8; O2SAT 95
[2019-12-07 05:42] LABS: Add Manual Diff / Slide Review NO; Basophils Absolute Auto 100 /uL (0-100); Eosinophils Absolute Auto 300 /uL (0-450); Eosinophils Percent Auto 4.9 % (2-4); Hematocrit 32.4 % (36-46); Hemoglobin 10.8 g/dL (12.0-16.0); Lymphocytes Absolute Auto 1300 /uL (1100-4500); Lymphocytes Percent Auto 20.4 % (25-40); Mean Corpuscular HGB Conc 33.4 % (30-36); Mean Corpuscular Hemoglobin 30.6 PG (26-34); Mean Corpuscular Volume 91.5 fL (80-100); Monocytes Absolute Auto 600 /uL (0-900); Monocytes Percent Auto 9.5 % (3-14); Neutrophils Absolute Auto 4100 /uL (1500-7000); Neutrophils Percent Auto 64.2 % (50-75); Platelet Count 441 X10^3/uL (150-400); Red Blood Cell Count 3.54 X10^6/uL (4.0-5.2); Red Cell Distribution Width 14.3 % (11.6-14.8); White Blood Cell Count 6.4 X10^3/uL (4.5-11.0)
[2019-12-07 05:46] LABS: Phosphorous 4.2 mg/dL (2.8-4.1)
[2019-12-07 05:47] LABS: BUN Creatinine Ratio 33.3 (6-22); Blood Urea Nitrogen 15 mg/dL (7-17); Calcium 8.9 mg/dL (8.4-10.2); Carbon Dioxide 24 mmol/L (22-32); Chloride 102 mmol/L (98-107); Estimated Glomerular Filt Rate > 60.0 mL/min (>60); Glucose 104 mg/dL (80-110); HEMOLYSIS < 15 (0-50); Magnesium 2.2 mg/dL (1.6-2.3); Sodium 133 mmol/L (137-145)
[2019-12-07] MEDS: OXYCODONE IR 5 MG TABLET PO ×2 (05:47→10:32)
[2019-12-07] MEDS: ACETAMINOPHEN 325 MG TABLET 650 MG PO (06:07)
[2019-12-07 08:00] VITALS: BP 111/81; PULSE 92; RESP 18; TEMP 36.6; O2SAT 97
--- NOTE | 2019-12-07 08:16 | P.DS_ITS ---
History of Present Illness History of Present Illness Chief complaint: not feeling well; appendectomy one week ago Narrative: This is a 64-year-old woman who came in 1 week ago with acute perforated appendicitis and had a laparoscopic appendectomy and abdominal washout with a drain left in. On postop day 4 she was seen in clinic, and was doing well, and her drain was putting out serous fluid. The drain was removed in clinic. I sent her for some labs that day, and her white blood cell count was 14. Because of this I sent her for CT scan, which showed relatively normal postop findings, with no indication of an abscess, or obstruction. I have been keeping up with her over the last few days. She has been having some intermittent nausea but she felt like it was getting better. Today she texted me and said that she was more nauseated and having diarrhea. She said she was unable to keep things down well. So I had her come into the ER, where she was found to have white blood cell count of 21. Another CT scan was done, which does not show any abscess or fluid collection, but shows some loops of bowel stuck down in the right lower quadrant. Her lactate is 1.4. Her electrolytes are a bit off, likely from poor p.o. intake and dehydration, but her creatinine is normal. I asked the ER to send a urine sample for culture and stool sample for C diff, as well as blood cultures. The patient says that she has been feeling general malaise, and worsening nausea over the past few days. She has not p assed any blood or tarry colored stool. Her stools have been brown and watery. She took some Pepto-Bismol, which helped improve her diarrhea, but she continues to have nausea. She has not had any subjective fevers or chills. She says that she has fibromyalgia, and she feels like her immune system is going crazy. ROS: The patient denies dysuria, cough, cold symptoms, shortness of breath. Thirteen system review is otherwise negative other than as mentioned below and in HPI. PE: GENERAL: Alert, fatigued appearing, uncomfortable appearing. Appears stated age. Answers questions promptly and appropriately. Vital signs noted. HENT: Normocephalic, atraumatic. Hearing intact. Oral mucosa is pink and moist. EYES: Conjunctiva pink, sclera white, no periorbital swelling. CARDIOVASCULAR: Mild tachycardia at 101. No pedal edema. RESPIRATORY: Non-tachypneic, breathing comfortably on room air. GASTROINTESTINAL: Abdomen soft and mildly distended; no tenderness on palpation, surgical incisions are clean dry and intact, without any erythema GENITALURINARY: No flank tenderness bilaterally. MUSCULOSKELETAL: Equal tone and mass bilaterally. SKIN: Warm, dry, soft, appropriate color for ethnicity. No other lesions, rashes, or wounds. NEURO: Alert and Oriented X 3. No gross sensory deficits, or cognitive issues. PSYCH: Appropriate affect and mood. Discharge Providers Provider Date of admission: 11/22/19 14:21 Discharge Date: 12/07/19 Primary care physician: EFRAIN Hurst Consults: 11/22/19 16:05 Consult to Discharge Planning Routine Comment: 11/27/19 14:25 Consult to Dietitian, Adult Routine Comment: Reason For Exam: NPO TPN, recommendations for TPN management 11/30/19 10:48 Consult to Physical Therapy Evaluate & Treat Comment: Physician Instructions: Evaluate and Treat 12/07/19 08:15 Consult to Physical Therapy Evaluate & Treat Comment: please provide an appropriate walker for home Physician Instructions: Evaluate and Treat; pt being discharged today Discharge provider: Orquidea Ferrer MD Summary Hospital Course Discharge Diagnosis: small bowel obstruction; pelvic abscess s/p appendectomy one week prior for acute perforated appendicitis Hospital Course: The patient was admitted from the ER with CT scan showing bowel obstruction and WBC of 22. At that time, surgery was recommended but the patient declined and requested antibiotics only. She was kept on antibiotics and her WBC gradaully came down. She had a SBFT which revealed abnormal dilated small bowel, but contrast did pass through. She was put on clear liquid diet, and did intermittently tolerate it. She was passing liquid stool and gas from time to time. KUB continued to show dilated bowel. Because of her lack of progress to adequate nutrition, and the fact that we did not know the cause of her WBC, and abscess or internal hernia was suspected, surgery was discussed on several occasions and declined. Her WBC began to increase again on 11/25, and surgery was again offered. The patient agreed to surgery after a second opinion was offered by Dr. Henriquez. She had a laparotomy revealing densely socked in distal ileum and cecum which could not be dissected out without severe damage to bowel. All adhesions that could be removed safely were taken down. An abscess was found and drained. Two drains were placed. She was kept on TPN and IV antibiotics. Her WBC gradually normalized. Five days post op she began to have return of bowel function. Another SBFT was done, revealing normal passage of contrast and non- dilated small bowel. Her diet was gradually advanced and her antibiotics were removed one by one as she was one week out from source control with normal WBC. She did well and was discharged home without TPN or antibiotics. Status at Discharge Cognitive/behavioral status at discharge: at baseline, oriented Functional status at discharge: uses cane/walker Overall status at discharge: patient is progressing back to baseline Time Spent with Patient Time spent: Greater than 30 minutes Exam Vital Signs (past 8 hours): - 12/07/19 04:35 Temperature 98.2 F Pulse Rate 94 H Respiratory Rate 16 Blood Pressure 115/65 Pulse Oximetry 95 Oxygen Delivery Method Room Air Oxygen Flow Rate 0 Narrative Exam Narrative: Alert, comfortable, WDWN, non toxic non tachypneic, breathing comfortably on room air abdomen SNTND; WILMAR drains serosanguinous, left side drain removed; right side drain in pelvis left in Incisions c/d/i/a No LE edema NSR neuro/psych intact; no gross abnormalities skin soft, warm appropriate for ethnicity Objective Imaging Abdominal x-ray: My impression: SBFT: much improved; normal appearing small bowel; contrast goes through easily Radiologist's impression: 1 Diagnostics DATE TYPE STATUS AUTHOR Joanne 12/03/19 12:58 Lauri Horowitz 12/03/19 08:15 Crista Clement 11/26/19 14:18 Elmer Prado 11/25/19 07:00 Elmer Prado 11/24/19 07:20 Linad Torres 11/23/19 09:40 Yanely Darling 11/23/19 07:00 11/23/19 07:00 Richard Garcia 11/22/19 12:45 Mainor Vigil 11/22/19 11:49 Mainor Vigil 11/19/19 15:36 Linda Torres 11/13/19 11:57 Eliseo Clemens Eleanor D 64, F0 1955 DIS IN, AC 222 -1 5ft 3.98in 134lb 0.657oz BSA: 1.65m? BMI: 23.0kg/m? Search Chart Dizzy No Data to Display 12/07/19 08:00 12/07/19 08:00 12/07/19 08:00 12/07/19 08:00 12/07/19 10:32 12/07/19 08:00 12/07/19 08:00 11/27/19 15:28 12/06/19 06:00 11/22/19 15:52 No Data to Display ONSET 08/27/19 11/22/19 11/22/19 12/07/19 11/22/19 04/21/19 11/22/19 12/03/19 11/24/19 11/22/19 12/08/19 11/13/19 11/14/19 11/22/19 11/22/19 Gurvinedr Benitezsudeep Vizcarra 64 F 1955 [place] [address] XRay Report Signed Patient: Ena Benitez [facility]#: [id number] : 1955cct:[id number] Age/Sex: 64 / FDate of Service: 12/03/19 Loc: GS610-4 Accession Number: [id number] Procedure: FL small bowel follow through Ordering Provider: Orquidea Ferrer MD PROCEDURE: FL SMALL BOWEL FOLLOW THROUGH INDICATIONS: resolving SBO COMPARISON: [facility], CT, CT ABDOMEN PELVIS W CON, 11/22/2019, 12:47. [facility], CR, XR KUB, 12/03/2019, 8:55. [facility], RF, [place] SMALL BOWEL FOLLOW THROUGH, 11/23/2019, 9:40. FINDINGS: Tubes and lines: Enteric tube with the tip terminating in the proximal duodenum. Catheters overlying the epigastric region and right pelvis. Ventral abdominal wall staple line. Bowel: There is a rapid transit of Gastrografin contrast through the proximal small bowel. The contrast has reached the rectum at 2 hours. No dilated loops of small bowel seen. No obvious pneumoperitoneum. IMPRESSION: Resolved small bowel obstruction. Dictated by: Lauri Horowitz M.D. on 12/03/2019 at 15:55 Approved by: Lauri Horowitz M.D. on 12/03/2019 at 15:59 Labs Result Diagrams: 12/07/19 05:00 12/07/19 05:00 Labs: Laboratory Results - last 24 hr 12/07/19 12/07/19 12/07/19 05:00 05:00 05:00 WBC 6.4 RBC 3.54 L Hgb 10.8 L Hct 32.4 L MCV 91.5 MCH 30.6 MCHC 33.4 RDW 14.3 Plt Count 441 H Neut % (Auto) 64.2 Lymph % (Auto) 20.4 L Kleberg % (Auto) 9.5 Eos % (Auto) 4.9 H Baso % (Auto) 1.0 Neut # (Auto) 4100 Lymph # (Auto) 1300 Kleberg # (Auto) 600 Eos # (Auto) 300 Baso # (Auto) 100 Sodium 133 L Potassium 4.0 Chloride 102 Carbon Dioxide 24 BUN 15 Creatinine 0.45 L Estimated GFR > 60.0 BUN/Creatinine Ratio 33.3 H Glucose 104 Calcium 8.9 Phosphorus 4.2 H D Magnesium 2.2 Discharge Plan Discharge Plan Patient Disposition: Home Discharge comment: You may take your prescription narcotic pain medication, Oxycodone 5mg every 4-6 hours as needed for pain. Try to reduce and space out the amount of pain medication until you are off of it. You may also use Ibuprofen as well as Tylenol/Acetaminophen for pain after surgery. Make sure you do not take more than 3000 mg of Acetaminophen per day from any source. You may take 1000mg of Tylenol every 8 hours, if you are not taking it from any other source. There may be Acetaminophen in cold medications or headache remedies. Using an NSAID such as Ibuprofen helps with inflammation. Do not take more than recommended on the packaging instructions. You may take it along with or instead of your prescribed pain medication. Avoid lifting, pulling, or pushing more than 10 lbs or doing other activities that strain the abdomen or increase the abdominal pressure such as sit-ups, core work outs, and attempt to prevent frequent coughing. These restrictions are for six weeks after surgery. If you have any spreading redness around the incision, or any foul-smelling drainage coming from the incision, any fevers, any symptoms of increased bloating, intractable nausea or vomiting please call the surgeon's office immediately. If you call after hours please choose the option to contact the surgeon manager occupational rather than leaving a message. Your milady will need to be removed within 2-3 weeks after surgery, and your drains will be removed when the drain output is very low, your bowel function is normal, and you are without fevers. This will likely be done on Saturday. Please continue liquid or low residual diet as tolerated. A copy of low residual diet recommendations will be given to you. You may use nutritional supplements similar to what you have used in the h ospital such as Ensure or Jevity that can be purchased over the counter or on line. Please take metamucil or similar fiber supplement such as Benefiber or other similar psyllium fiber product twice daily. 2 Tspn in an 8 oz glass of water or mixed into your smoothie. Drink plenty of water. If you have constipation or feel backed up, slow down your oral intake and stick to clear liquids until you are passing things through again. You may add a stool softener such as Docusate 100mg twice daily, or a laxative such as Miralax 1-3 times per day, but these are not a substitute for the Metamucil. If you develop worsening bloating, you are not able to pass gas or stool for 24 hours, and especially if this is associated with nausea and vomiting or fevers, please contact Dr. Ferrer, the [place] [facility]geon's office, or come into the ER. Discharge orders & Medications Prescriptions: Continued ondansetron 4 mg film 4 mg PO Q6H PRN (Reason: nausea and vomiting) Qty: 30 RF: 0 clonazepam [Klonopin] 0.5 mg Tablet 0.25 mg PO DAILY PRN (Reason: Anxiety) RF: 0 Follow up/Referrals: Ysabel Gómez ARNP [Primary Care Provider] - Orquidea Ferrer MD [Physician] - 12/09/19 11:30 am (appt:12/08 @ [address] ferrer [phone] ) Diet/Activity/Treatments Diet: Diet as Tolerated, Regular and Full Liquid Skin/Wound/Dressing Care Report to your healthcare provider any signs of infection, such as:: chills, fever, night sweats, increased pain, unusual drainage and unusual redness Visit Report/Discharge Packet Instructions: Low-Fiber/Low-Residue Diet, DI Following Your Exploratory Laparotomy, DI for Cong-Fields Drains, How to Use and Care for Your Cong- Fields Drain Discharge Data Primary Care Provider: Ysabel Gómez Discharges patient from system. Discharge Date/Time: 12/07/19 11:33 Quality VTE Deep Vein Thrombosis/Pulmonary Embolism Present on Admission: No
[2019-12-07] MEDS: PSYLLIUM HUSK 1 PACKET PO (09:26)
--- NOTE | 2019-12-07 10:33 | PT-IP ANOTE ---
Met with pt and dispensed FWW per general surgeon's order. Inquired about remaining PT needs which pt denied. Pt to discharge this morning.
--- NOTE | 2019-12-07 11:26 | PC.NURSE ---
Discharge: PICC line flushed with heparin and left in place per instruction from Dr Ocasio (at least until f/u on Saturday). This chief underwriter instructed patient how to cover when she showers and provided with sleeves for covering. Reviewed technique for covering and keeping drain site dressing dry while showering. Provided with clean gauze and tape in case dressing gets wet and needs replaced. Reviewed drain management/emptying with patient and she verbalized understanding. Reviewed all of Dr Ocasio's instructions thoroughly. Given hand-out on low fiber/soft diet. Given follow up info for 12/08 at 1130, instructed to call Dr Ocasio/on-call surgeon with any questions or concerns that arise prior to follow up. Reviewed s/sx infection and other s/sx with which to call MD. Patient verbalized understanding of discharge instructions and stated no further questions. 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 Wheeled out to private vehicle by this chief underwriter.
== END 2019-12-07 11:33 | disposition home or self-care (01) | DRG 856 ==
LOC: ED 11:48 → AC 14:31
PROVIDERS: Specialist; Admitting Provider Surgery; Emergency Provider Nurse Practitioner Family; Visit Provider Surgery
PROC: 0DN84ZZ Release Small Intestine, Percutaneous Endoscopic Approach (ICD-10-PCS; CPT 49320; principal; 2019-11-26 20:15)
DX: T81.43XA Infection following a procedure, organ and space surgical site, initial encounter (principal); K65.1 Peritoneal abscess; K56.50 Intestinal adhesions [bands], unspecified as to partial versus complete obstruction; E46 Unspecified protein-calorie malnutrition; E87.6 Hypokalemia; F41.9 Anxiety disorder, unspecified; E83.39 Other disorders of phosphorus metabolism; M79.7 Fibromyalgia; Z11.59 Encounter for screening for other viral diseases; Z68.23 Body mass index [BMI] 23.0-23.9, adult
CPT/HCPCS: 36415; 36592; 49020; 74018; 74022; 74177; 74250; 80048; 80053; 80202; 81003; 82150; 82962; 83605; 83690; 83735; 84100; 84132; 84145; 85025; 86140; 87040; 87077; 87086; 87493; 87635; 96361; 96365; 97116; 97161; 97530; 99284; B4189; J1100; J1170; J1642; J1644; J1650; J1885; J2250; J2405; J2543; J2704; J2765; J3010; J3480; Q9967

== ENCOUNTER → 2020-08-26 13:16 | Outpatient (CLI) | payer OTHER, SELFPAY ==
[2019-11-22 15:52] VITALS: BMI 21.9
[2020-08-26 13:42] LABS: Add Manual Diff / Slide Review NO; Basophils Absolute Auto 0 /uL (0-100); Basophils Percent Auto 0.7 % (0-2); Eosinophils Absolute Auto 0 /uL (0-450); Eosinophils Percent Auto 0.8 % (2-4); Hematocrit 42.5 % (36-46); Hemoglobin 14.2 g/dL (12.0-16.0); Lymphocytes Absolute Auto 1600 /uL (1100-4500); Lymphocytes Percent Auto 33.6 % (25-40); Mean Corpuscular HGB Conc 33.4 % (30-36); Mean Corpuscular Hemoglobin 31.1 PG (26-34); Mean Corpuscular Volume 93.2 fL (80-100); Monocytes Absolute Auto 300 /uL (0-900); Monocytes Percent Auto 7.4 % (3-14); Neutrophils Absolute Auto 2700 /uL (1500-7000); Neutrophils Percent Auto 57.5 % (50-75); Platelet Count 215 X10^3/uL (150-400); Red Blood Cell Count 4.56 X10^6/uL (4.0-5.2); Red Cell Distribution Width 12.6 % (11.6-14.8); White Blood Cell Count 4.7 X10^3/uL (4.5-11.0)
[2020-08-26 13:51] LABS: Alanine Aminotransferase 14 IU/L (<35); Albumin 4.5 g/dL (3.5-5.0); Albumin Globulin Ratio 1.6 (1.0-2.8); Alkaline Phosphatase 54 U/L (38-126); Aspartate Aminotransferase 28 IU/L (14-36); BUN Creatinine Ratio 24.6 (6-22); Bilirubin Total 0.4 mg/dL (0.2-1.3); Blood Urea Nitrogen 17 mg/dL (7-17); Calcium 9.4 mg/dL (8.4-10.2); Carbon Dioxide 30 mmol/L (22-32); Chloride 104 mmol/L (98-107); Cholesterol 230 mg/dL (140-199); Estimated Glomerular Filt Rate > 60.0 mL/min (>60); Globulin 2.8 g/dL (1.7-4.1); Glucose 102 mg/dL (80-110); HDL Cholesterol 69 mg/dL (40-60); HEMOLYSIS < 15 (0-50); LDL Cholesterol Calculated 132 mg/dL (<100); Potassium 3.9 mmol/L (3.4-5.1); Sodium 138 mmol/L (137-145); Total Protein 7.3 g/dL (6.3-8.2); Triglycerides 143 mg/dL (35-150)
[2020-08-26 14:30] LABS: Thyroid Stimulating Hormone 1.01 uIU/mL (0.47-4.68)
[2020-08-27 06:08] LABS: Thyroid Peroxidase Antibodies <9 IU/mL (0-34)
== END ==
PROVIDERS: PCP Naturopath; Referring Provider Naturopath; Visit Provider Naturopath
DX: Z00.00 Encounter for general adult medical examination without abnormal findings (principal); R53.83 Other fatigue
CPT/HCPCS: 36415; 80053; 80061; 84443; 85025; 86376